=== PATIENT | female | born 1935 | race Caucasian/White ===

== ENCOUNTER → 2016-05-24 | Outpatient (CLI) | payer BC ==
[~2016-05-24] MED LIST: ACET-749 PO; ACET325T96 PO; ADVIN50050 INH; ALBINS NEB; ALBU0.5N2 NEB; ALUMSUS2 PO; ATOR-22 PO; BUTA1CAP17 PO; CALC500C3 PO; CARB-157 PO; CLR10 PO; CPR250 PO; CRG40 PO; CYNI1000 IM; FRCT/ PO; GABA-112 PO; GLYCDRO6 OPB; IMD/2 PO; LEVO175T3 PO; MGNO400 PO; MOME6000 NAE; MULT-845 PO; PANT40TA PO; PRT40 PO; SPRIN INH; SUMA100T16 PO; SUMA50TA15 PO; TIOTCAP INH; VITAMIN A OPL; VNTHFA/IN INH
[2016-05-24 14:17] LABS: URINE APPEARANCE CLEAR (CLEAR); URINE BILIRUBIN NEG (NEG); URINE COLOR DK YELLOW; URINE EPITHELIAL CELL AUTO 20-30 /lpf (0-5); URINE NITRITE POS (NEG); URINE PH 6.5 (4.5-7.5); URINE SPECIFIC GRAVITY 1.009 (1.000-1.030); UROBILINOGEN NEG (NEG)
[2016-05-24 14:29] LABS: MANUAL MICROSCOPIC REQUIRED? NO; REVIEW REQ? NO
== END | disposition home or self-care (01) ==
LOC: C.LABBC 10:24
PROVIDERS: ATTEND Internal Medicine Pulmonary Disease
DX: N39.0 Urinary tract infection, site not specified (principal)

== ENCOUNTER → 2016-07-04 | Outpatient (CLI) | payer BC ==
[2016-07-04 18:03] LABS: THYROID STIMULATING HORMONE 5.68 uIu/ml (0.300-4.500)
[2016-07-06 14:59] LABS: MICROSOMAL AB 1 IU/ML (<9)
== END | disposition home or self-care (01) ==
LOC: C.LABBC 12:16
PROVIDERS: ATTEND Internal Medicine Pulmonary Disease
DX: E05.00 Thyrotoxicosis with diffuse goiter without thyrotoxic crisis or storm (principal)

== ENCOUNTER 2016-07-11 11:12 | Emergency (ER) | payer BC ==
[~2016-07-11] VITALS: Ht 162.6 cm; Wt 45.0 kg
[~2016-07-11 11:12] MED LIST changes: -ACET-749 PO; -ALBINS NEB; -CPR250 PO; -GLYCDRO6 OPB; -MOME6000 NAE; -PANT40TA PO; -SPRIN INH; -SUMA50TA15 PO; -VNTHFA/IN INH
[2016-07-11 11:17] VITALS: TEMP 36.4; Ht 162.6 cm; Wt 45.0 kg
[2016-07-11 12:15] LABS: BASO % 0.1 %; BASO ABS # 0.02 K/uL (0-0.2); EOS % 0.7 %; HEMATOCRIT 33.7 % (37-47); IG% 0.2 %; LYMPH % 13.1 %; LYMPH ABS # 1.77 K/uL (1.2-3.4); MEAN CORPUSCULAR HEMOGLOBIN 32.2 pg (25-34); MEAN CORPUSCULAR HGB CONC 33.5 g/dl (32-36); MEAN PLATELET VOLUME 9.7 fL (7.4-10.4); MONO % 6.9 %; PLATELET COUNT 186 K/uL (130-400); RED BLOOD COUNT 3.51 M/uL (4.2-5.4); WHITE BLOOD COUNT 13.48 K/uL (4.8-10.8)
[2016-07-11] MEDS ORDERED: ALBINS NEB (12:15)
[2016-07-11] MEDS ORDERED: SPRIN INH (12:19)
[2016-07-11] MEDS ORDERED: VNTHFA/IN INH (12:24)
[2016-07-11] MEDS ORDERED: CPR250 PO (12:26)
[2016-07-11] MEDS ORDERED: MOME6000 NAE (12:28)
[2016-07-11] MEDS ORDERED: PANT40TA PO (12:30)
[2016-07-11] MEDS ORDERED: GLYCDRO6 OPB (12:34)
[2016-07-11 12:35] LABS: BUN/CREATININE RATIO 18.1 (10-20); CALCIUM 9.3 mg/dl (8.5-10.1); CREATININE 0.64 mg/dl (0.60-1.20)
[2016-07-11 12:39] LABS: ANISOCYTOSIS PRESENT; COMPLETE YES; HYPOCHROMIA PRESENT
[2016-07-11] MEDS ORDERED: ACET-749 PO (12:39)
--- NOTE | 2016-07-11 12:47 | DIAGNOSTIC IMAGING REPORT ---
CHEST ONE VIEW PORTABLE CLINICAL HISTORY: CHEST PAIN dyspnea COMPARISON STUDY: 11/25/2015 FINDINGS: Mild stable upper lobe fibrotic change. Mild emphysematous change. No acute process. Prior vertebroplasty of the low thoracic region. IMPRESSION: Chronic change. Emphysematous change. No acute infiltrate. Electronically signed by: Kai Lara M.D. 07/11/2016 12:45 PM Dictated Date/Time: 07/11/2016 12:40 PM
--- NOTE | 2016-07-11 12:48 | DIAGNOSTIC IMAGING REPORT ---
HEAD CT NONCONTRAST CT DOSE: 823.94 mGycm HISTORY: Mental status change right sided weakness TECHNIQUE: Multiaxial CT images of the head were performed without the use of intravenous contrast. Comparison: 11/23/2015 Findings: The paranasal sinuses and mastoid air cells are clear. Subtle heterogeneity of density characteristics of the periventricular regions. This is consistent with a component of chronic small vessel change of aging and is unaltered from the prior study. Ventricular system is midline. Basal cisterns are within normal limits. Impression: Age-related change. No acute process. Electronically signed by: Kai Lara M.D. 07/11/2016 12:47 PM Dictated Date/Time: 07/11/2016 12:45 PM
[2016-07-11 13:28] LABS: URINE APPEARANCE CLEAR (CLEAR); URINE BILIRUBIN NEG (NEG); URINE COLOR DK YELLOW; URINE NITRITE POS (NEG); URINE PH 6.5 (4.5-7.5); URINE SPECIFIC GRAVITY 1.009 (1.000-1.030); UROBILINOGEN NEG (NEG)
[2016-07-11 13:37] LABS: MANUAL MICROSCOPIC REQUIRED? NO; REVIEW REQ? NO
[2016-07-11] MEDS ORDERED: ASPIRIN 324 MG CHEW PO STA (15:29)
[2016-07-11] MEDS ORDERED: ACETAMINOPHEN/CODEINE 300/30MG TAB PO ONE (15:30)
[2016-07-11 15:50] VITALS: BP 143/73; PULSE 80; O2SAT 92
--- NOTE | 2016-07-12 23:27 | EMERGENCY ROOM VISIT NOTE ---
History Report prepared by Evan: Cynthia Trinidad Under the Supervision of: Dr. Rony Avila M.D. First contact with patient: 11:59 Chief Complaint: STROKE SYMPTOMS Stated Complaint: RIGHT SIDE WEAKNESS, DROPPED SHOULDER History of Present Illness The patient is a 80 year old female who presents to the Emergency Room with complaints of persistent right sided weakness starting yesterday. She has noticed a drop in her right shoulder. She also complains of urinary symptoms. She denies any fevers, chills, headache, trouble swallowing, or any other complaints. She normally uses a wheelchair and a walker to ambulate. As per , she has had frequent falls but did not have fall since November. She has numbness in bilateral feet which is chronic. The patient has a history of recurring UTI. She does feel weak at baseline but felt worse today. Denies headache. No acute urinary symptoms. No fever or chills. No cough or chest pain or shortness of breath. At baseline she is in a wheelchair and transfers with a walker so has limited mobility Source of History: patient, spouse/significant other, caregiver Onset: yesterday Position: other (right sided) Quality: other (weakness) Timing: other (persistent) Associated Symptoms: + urinary symptoms, No chills, No fevers, No headache Review of Systems See HPI for pertinent positives & negatives. A total of 10 systems reviewed and were otherwise negative. Past Medical & Surgical Medical Problems: (1) Arthritis (2) Asthma (3) Asthma with exacerbation (4) Asthma with exacerbation (5) Asthma with exacerbation (6) Asthma with exacerbation (7) Back pain (8) Borderline hypercholesterolemia (9) CAD (coronary artery disease) (10) Compression fracture of L1 lumbar vertebra (11) Delirium (12) Fall (13) GERD (gastroesophageal reflux disease) (14) Hypothyroid (15) Hypoxia (16) Hypoxia (17) Inferior pubic ramus fracture (18) Lumbar compression fracture (19) Osteopenia (20) Osteoporosis (21) Sacral fracture (22) Sacral fracture, closed (23) Shortness of breath (24) UTI (urinary tract infection) (25) Weakness Surgical Problems: (1) H/O thyroidectomy (2) History of appendectomy (3) History of bilateral knee replacement (4) History of tonsillectomy and adenoidectomy (5) Hx of bilateral cataract extraction Old medical records were reviewed. Nurse's notes were reviewed and I agree with. Family History Patient reports no known family medical history. Social History Smoking Status: Former Smoker Alcohol Use: occasionally Drug Use: none Marital Status: Housing Status: lives with significant other Occupation Status: retired Current/Historical Medications Scheduled Acetamin/Butalbital/Caffeine (Fioricet), 1 TAB PO UD Acetaminophen Tab (Tylenol), 650 MG PO BID Aluminum/Magnesium/Simeth (Maalox Max Susp), 20 ML PO PRN Atorvastatin (Lipitor), 20 MG PO HS Calcium Carbonate (Tums), 1,000 MG PO AMHS Ciprofloxacin (Ciprofloxacin HCl), 1 TAB PO UD Cyanocobalamin (Cyanocobalamin), 1,000 MCG IM WK Fluticasone Prop/Salmeterol (Advair Diskus 500-50 Mcg/Dose), 1 PUFF INH AMHS Aqaqfviw-Ziojxmgugift-Exvsunzp (Artificial Tears), 1 DROP OPB Q2H Levothyroxine Sodium (Levothyroxine Sodium), 175 MCG PO QAM Magnesium Oxide (Magnesium-Oxide), 400 MG PO BID Mometasone Furoate (Nasal) (Mometasone Furoate), 2 SPRAYS MIRTHA QAM Multiple Vitamins W/ Minerals (Centrum Silver Adult 50+), 1 TAB PO QAM Nadolol (Nadolol), 40 MG PO HS Pantoprazole (Protonix), 40 MG PO DAILY Tiotropium [place] (Spiriva Handihaler), 1 CAP INH QAM Scheduled PRN Acetaminophen Tab (Tylenol), 650 MG PO Q4H PRN for Pain or Fever Acetaminophen/Codeine (Tylenol W/Codeine #3), 1 TAB PO UD PRN for Pain Albuterol Hfa (Ventolin Hfa), 2 PUFFS INH Q6H PRN for Shortness of Breath Albuterol Sulf (Albuterol Sulfate), 1 VIAL NEB Q4 PRN for Shortness of Breath Xrrfouidoz-Gkqfsozrsyoqk-Kyjml (Fioricet), 1 TAB PO Q12H PRN for N Loperamide Hcl (Imodium), 2 MG PO UD PRN for RN Loratadine (Claritin), 10 MG PO Q24H PRN for ALLERGIC REACTION Sumatriptan Succinate (Imitrex), 50 MG PO DIRECTED PRN for Migraine Allergies Coded Allergies: Celecoxib (Verified Allergy, Intermediate, RASH, 07/11/16) Penicillins (Verified Allergy, Intermediate, MOUTH SWELLING/RASH, 07/11/16) Cephalosporins (Verified Allergy, Unknown, HIVES, 07/11/16) Sulfa Antibiotics (Verified Allergy, Unknown, DIFFICULTY AMBULATING, ) Lorazepam (Verified Adverse Reaction, Severe, hallucinations, 07/11/16) Oxycodone (Verified Adverse Reaction, Severe, hallucinations, 07/11/16) Arformoterol (Verified Adverse Reaction, Intermediate, GI SYMPTOMS, 07/11/16 ) 'SHAKINESS, HYPERNESS' Clarithromycin (Verified Adverse Reaction, Intermediate, GI SYMPTOMS, ) DIARRHEA Physical Exam Vital Signs Date Time Temp Pulse Resp B/P Pulse Ox O2 Delivery O2 Flow Rate FiO2 07/11/16 15:50 80 18 143/73 92 Room Air 07/11/16 13:21 79 07/11/16 13:18 79 16 135/76 91 Room Air 07/11/16 11:17 36.4 74 18 124/71 92 Room Air Physical Exam General: Non-ill appearing, older female, in no acute distress. Speaking and swallowing without difficulty. HEENT: Normal cephalic atraumatic. Pupils are equal round and reactive to light. Extraocular movements are intact. Colored contact in left eye for previous eye injury. Oropharynx is pink with moist mucous membranes. No swelling of the mouth lips or tongue. Neck: Supple with a midline trachea. No meningeal signs or stiffness, no JVD or bruits. No Stridor. Chest: Clear to auscultation bilaterally. No wheezes or rhonchi. No increased work of breathing. Heart: regular rate and rhythm. Abdomen: Soft nontender, nondistended without rebound guarding or rigidity. Extremities: No cyanosis clubbing or edema. No calf tenderness or assymetry Spine/Back. Non tender to palpation. No CVA tenderness Skin: Good turgor without rashes. Neurologic exam: Cranial nerves two through 12 are intact. Sensation is intact and symmetrical throughout. Questionable mild right sided weakness in the lower extremity. Medical Decision & Procedures ER Provider Diagnostic Interpretation: X-ray results as stated below per interpretation by me and the radiologist: CHEST ONE VIEW PORTABLE CLINICAL HISTORY: CHEST PAIN dyspnea COMPARISON STUDY: 11/25/2015 FINDINGS: Mild stable upper lobe fibrotic change. Mild emphysematous change. No acute process. Prior vertebroplasty of the low thoracic region. IMPRESSION: Chronic change. Emphysematous change. No acute infiltrate. Electronically signed by: Kai Lara M.D. 07/11/2016 12:45 PM Dictated Date/Time: 07/11/2016 12:[address] results as stated below per my review and radiologist interpretation: HEAD CT NONCONTRAST CT DOSE: 823.94 mGycm HISTORY: Mental status change right sided weakness TECHNIQUE: Multiaxial CT images of the head were performed without the use of intravenous contrast. Comparison: 11/23/2015 Findings: The paranasal sinuses and mastoid air cells are clear. Subtle heterogeneity of density characteristics of the periventricular regions. This is consistent with a component of chronic small vessel change of aging and is unaltered from the prior study. Ventricular system is midline. Basal cisterns are within normal limits. Impression: Age-related change. No acute process. Electronically signed by: Kai Lara M.D. 07/11/2016 12:47 PM Dictated Date/Time: 07/11/2016 12:45 PM Laboratory Results 07/11/16 11:45 Red Blood Count 3.51, Mean Corpuscular Volume 96.0, Mean Corpuscular Hemoglobin 32.2, Mean Corpuscular Hemoglobin Concent 33.5, Mean Platelet Volume 9.7, Neutrophils (%) (Auto) 79.0, Lymphocytes (%) (Auto) 13.1, Monocytes (%) (Auto) 6.9, Eosinophils (%) (Auto) 0.7, Basophils (%) (Auto) 0.1, Neutrophils # (Auto) 10.63, Lymphocytes # (Auto) 1.77, Monocytes # (Auto) 0.93, Eosinophils # (Auto) 0.10, Basophils # (Auto) 0.02 07/11/16 11:45 Test 07/11/16 11:41 07/11/16 11:45 07/11/16 12:25 07/11/16 13:05 Bedside Glucose 96 mg/dl (70-90) White Blood Count 13.48 K/uL (4.8-10.8) Red Blood Count 3.51 M/uL (4.2-5.4) Hemoglobin 11.3 g/dL (12.0-16.0) Hematocrit 33.7 % (37-47) Mean Corpuscular Volume 96.0 fL (80-100) Mean Corpuscular Hemoglobin 32.2 pg (25-34) Mean Corpuscular Hemoglobin Concent 33.5 g/dl (32-36) Platelet Count 186 K/uL (130-400) Mean Platelet Volume 9.7 fL (7.4-10.4) Neutrophils (%) (Auto) 79.0 % Lymphocytes (%) (Auto) 13.1 % Monocytes (%) (Auto) 6.9 % Eosinophils (%) (Auto) 0.7 % Basophils (%) (Auto) 0.1 % Neutrophils # (Auto) 10.63 K/uL (1.4-6.5) Lymphocytes # (Auto) 1.77 K/uL (1.2-3.4) Monocytes # (Auto) 0.93 K/uL (0.11-0.59) Eosinophils # (Auto) 0.10 K/uL (0-0.5) Basophils # (Auto) 0.02 K/uL (0-0.2) RDW Standard Deviation 48.2 fL (36.4-46.3) RDW Coefficient of Variation 13.7 % (11.5-14.5) Immature Granulocyte % (Auto) 0.2 % Immature Granulocyte # (Auto) 0.03 K/uL (0.00-0.02) Hypochromasia PRESENT Anisocytosis PRESENT Anion Gap 8.0 mmol/L (3-11) Est Creatinine Clear Calc Drug Dose 50.6 ml/min Estimated GFR () 98.4 Estimated GFR (Non- 84.9 BUN/Creatinine Ratio 18.1 (10-20) Calcium Level 9.3 mg/dl (8.5-10.1) Total Bilirubin 0.8 mg/dl (0.2-1) Direct Bilirubin 0.2 mg/dl (0-0.2) Aspartate Amino Transf (AST/SGOT) 17 U/L (15-37) Alanine Aminotransferase (ALT/SGPT) 23 U/L (12-78) Alkaline Phosphatase 71 U/L (45-117) Total Protein 6.8 gm/dl (6.4-8.2) Albumin 3.6 gm/dl (3.4-5.0) Lipase 85 U/L (73-393) Bedside Troponin I 0.000 ng/ml (0-0.045) Urine Color DK YELLOW Urine Appearance CLEAR (CLEAR) Urine pH 6.5 (4.5-7.5) Urine Specific [place] 1.009 (1.000-1.030) Urine Protein TRACE (NEG) Urine Glucose (UA) NEG (NEG) Urine Ketones TRACE (NEG) Urine Occult Blood TRACE (NEG) Urine Nitrite POS (NEG) Urine Bilirubin NEG (NEG) Urine Urobilinogen NEG (NEG) Urine Leukocyte Esterase TRACE (NEG) Urine WBC (Auto) 5-10 /hpf (0-5) Urine RBC (Auto) 5-10 /hpf (0-4) Urine Hyaline Casts (Auto) 1-5 /lpf (0-5) Urine Epithelial Cells (Auto) 10-20 /lpf (0-5) Urine Bacteria (Auto) NEG (NEG) Date/Time Source Procedure Growth Status 07/11/16 13:05 Urine , Clean Catch Urine Culture - Final MORE THAN THREE TYPES OF ORGANISMS MS... Complete Laboratory studies as stated above per my review. Medications Administered Medications (Trade) Dose Ordered Sig/Theo Route Start Time Stop Time Status Last Admin Dose Admin Acetaminophen/ Codeine Phosphate (Tylenol w/ Codeine #3 Tab) 1 tab NOW ONCE PO 07/11/16 15:30 07/11/16 15:31 DC 07/11/16 15:42 1 TAB Aspirin (Aspirin Chew) 324 mg NOW STAT PO 07/11/16 15:29 07/11/16 15:30 DC 07/11/16 15:42 324 MG ECG Indication: weakness (left sided) Rate (beats per minute): 75 Rhythm: normal sinus Findings: other (poor baseline; nonspecific T wave abnormality) Comparison ECG Date: November 23, 2015 Change: Anterior T wave abnormality has improved from November 23, 2015. ED Course 1159: Past medical records reviewed. The patient was evaluated in room A11B, and a complete history and physical examination were performed. 1529: Aspirin 324 mg PO 1530: Acetaminophen/Codeine Phosphate 1 tab PO Medical Decision Differential diagnosis includes but is not limited to CVA, TIA, musculoskeletal , electrolyte or metabolic abnormalities, arrhythmia, infection. This patient comes in as described above. She was complaining of a right shoulder feeling like it was down compared to the left. Clinically, it's nontender and has full range of motion. She complains of some weakness in her right leg along my exam. She does not appear to be significantly weak compared to the other side. Her symptoms have been going on since yesterday. She does a lot of medical problems and does have a lot of weakness to begin with apparently. She was worked up for the possibility of a stroke. IV access was established and multiple blood tests was obtained. CAT scan of her head shows no acute findings. Chest x-ray is unremarkable. EKG does not suggest acute coronary syndrome or arrhythmia. She has no significant anemia. She has no acute electrolyte or metabolic abnormalities. Upon reassessment, the patient is demanding that she goes home. She says she feels fine and he wants to follow -up with her neurologist on Saturday and hersymptoms seem resolved. I recommend she take an aspirin a day. I did talk to the patient and her at length and told him I did recommend admission for further evaluation but she adamantly declines. She seems to be back at her baseline and has close follow-up. She will return if worsening symptoms, numbness or weakness, fever or chills, any problems concerns. She was happy the plan and discharged to home. Impression Primary Impression: Weakness Scribe Attestation The scribe's documentation has been prepared under my direction and personally reviewed by me in its entirety. I confirm that the note above accurately reflects all work, treatment, procedures, and medical decision making performed by me. Departure Information Dispostion Home / Self-Care Referrals Jamison Camp PA-C (PCP) Forms HOME CARE DOCUMENTATION FORM, IMPORTANT VISIT INFORMATION Patient Instructions My [facility] Additional Instructions Rest Drink plenty of fluids Take an enteric coated baby aspirin 81 mg once a day REturn if: worsening of symptoms, numbness or weakness, any new problems or concerns
== END 2016-07-11 16:17 | disposition home or self-care (01) ==
LOC: C.EDB 11:16 → C.EDA 16:17
DX: R53.1 Weakness (principal); E78.00 Pure hypercholesterolemia, unspecified; I25.10 Atherosclerotic heart disease of native coronary artery without angina pectoris; E03.9 Hypothyroidism, unspecified; K21.9 Gastro-esophageal reflux disease without esophagitis; M81.0 Age-related osteoporosis without current pathological fracture; J45.909 Unspecified asthma, uncomplicated; M19.90 Unspecified osteoarthritis, unspecified site; Z87.440 Personal history of urinary (tract) infections; Z87.81 Personal history of (healed) traumatic fracture; Z91.81 History of falling; Z96.653 Presence of artificial knee joint, bilateral; Z98.49 Cataract extraction status, unspecified eye; Z98.890 Other specified postprocedural states; Z87.891 Personal history of nicotine dependence; Z79.899 Other long term (current) drug therapy; Z88.0 Allergy status to penicillin; Z88.2 Allergy status to sulfonamides; Z88.5 Allergy status to narcotic agent; Z88.8 Allergy status to other drugs, medicaments and biological substances

== ENCOUNTER → 2016-07-20 | Outpatient (CLI) | payer BC ==
[~2016-07-20] MED LIST changes: +ACET-749 PO; +ALBINS NEB; -ALBU0.5N2 NEB; -CARB-157 PO; +CPR250 PO; -GABA-112 PO; +GLYCDRO6 OPB; +MOME6000 NAE; +PANT40TA PO; -PRT40 PO; +SPRIN INH; +SUMA50TA15 PO; -TIOTCAP INH; -VITAMIN A OPL; +VNTHFA/IN INH
[2016-07-20 13:42] LABS: CHOLESTEROL/HDL RATIO 2.2
== END | disposition home or self-care (01) ==
LOC: C.LABBC 10:00
PROVIDERS: ATTEND Internal Medicine Cardiovascular Disease
DX: I10 Essential (primary) hypertension (principal); E78.5 Hyperlipidemia, unspecified

== ENCOUNTER → 2016-08-07 | Outpatient (CLI) | payer BC ==
--- NOTE | 2016-08-07 15:46 | DIAGNOSTIC IMAGING REPORT ---
EXAMINATION: RENAL ULTRASOUND CLINICAL HISTORY: Dysuria. Recurrent UTIs. COMPARISON STUDY: CT scan dated 11/23/2015 FINDINGS: The right kidney measures 9.5 cm. The left kidney measures 9.6 cm. There is no evidence of hydronephrosis. There are no renal masses. No bladder abnormalities are visualized. The left ureteral jet was not visualized. IMPRESSION : Nonvisualization of the left ureteral jet, but no evidence of hydronephrosis. Otherwise unremarkable renal ultrasound. Electronically signed by: Kp Rojas M.D. 08/07/2016 3:45 PM Dictated Date/Time: 08/07/2016 3:44 PM
== END | disposition home or self-care (01) ==
LOC: C.ULTR 14:32
PROVIDERS: ATTEND Nurse Practitioner Adult Health
DX: N39.0 Urinary tract infection, site not specified (principal); R30.0 Dysuria

== ENCOUNTER → 2016-08-17 | Outpatient (CLI) | payer BC ==
[~2016-08-17] MED LIST changes: +CIPR250T5 PO; -CPR250 PO
== END | disposition home or self-care (01) ==
LOC: C.LABSPEC 16:42
PROVIDERS: ATTEND Ophthalmology
DX: H10.32 Unspecified acute conjunctivitis, left eye (principal)

== ENCOUNTER → 2016-09-03 | Outpatient (CLI) | payer BC | END | disposition home or self-care (01) | LOC: C.LABSPEC 17:08 | PROVIDERS: ATTEND Nurse Practitioner Adult Health | DX: N39.0 Urinary tract infection, site not specified (principal); R35.0 Frequency of micturition ==

== ENCOUNTER → 2016-09-11 | Outpatient (CLI) | payer BC ==
[2016-09-11 17:45] LABS: BASO % 0.3 %; BASO ABS # 0.02 K/uL (0-0.2); COMPLETE YES; HEMATOCRIT 33.8 % (37-47); IG% 0.3 %; LYMPH % 25.1 %; LYMPH ABS # 1.96 K/uL (1.2-3.4); MEAN CORPUSCULAR HEMOGLOBIN 32.9 pg (25-34); MEAN CORPUSCULAR HGB CONC 31.7 g/dl (32-36); MEAN PLATELET VOLUME 10.3 fL (7.4-10.4); MONO % 7.9 %; NEUT % 64.4 %; PLATELET COUNT 144 K/uL (130-400); RED BLOOD COUNT 3.25 M/uL (4.2-5.4); WHITE BLOOD COUNT 7.82 K/uL (4.8-10.8)
[2016-09-11 18:25] LABS: IMMUNOGLOBULN M 56.5 mg/dL (40-230)
[2016-09-17 13:10] LABS: ALBUMIN 3.9 G/DL (3.8-4.8); ANTI-CENTROMERE AB <1.0 NEG AI (<1.0 NEG); ANTI-SS-A <1.0 NEG AI (<1.0 NEG); ANTI-SS-B <1.0 NEG AI (<1.0 NEG); DNA ds CRITHIDIA NEGATIVE (NEGATIVE); GAMMA GLOBULIN 0.7 G/DL (0.8-1.7); MICROSOMAL AB 2 IU/ML (<9); Sm Antibody <1.0 NEG AI (<1.0 NEG); TOTAL PROTEIN 6.3 G/DL (6.2-8.3)
== END | disposition home or self-care (01) ==
LOC: C.LAB1850 16:11
PROVIDERS: ATTEND Internal Medicine Infectious Disease
DX: D80.9 Immunodeficiency with predominantly antibody defects, unspecified (principal)

== ENCOUNTER → 2016-10-17 | Outpatient (CLI) | payer BC | END | disposition home or self-care (01) | LOC: C.PATHSPEC 17:58 | PROVIDERS: ATTEND Plastic Surgery | DX: C44.629 Squamous cell carcinoma of skin of left upper limb, including shoulder (principal) ==

== ENCOUNTER 2016-11-09 10:03 | Inpatient (IN) | payer BC, OTHER ==
[~2016-11-09] VITALS: Ht 162.6 cm; Wt 46.0 kg
[~2016-11-09 10:03] MED LIST changes: -CIPR250T5 PO; +CPR250 PO; -SUMA50TA15 PO
[2016-11-09 10:55] LABS: BASO % 0.2 %; BASO ABS # 0.02 K/uL (0-0.2); COMPLETE YES; HEMATOCRIT 34.1 % (37-47); IG% 0.1 %; LYMPH % 12.6 %; LYMPH ABS # 1.16 K/uL (1.2-3.4); MEAN CELL VOLUME 100.6 fL (80-100); MEAN CORPUSCULAR HEMOGLOBIN 33.3 pg (25-34); MEAN CORPUSCULAR HGB CONC 33.1 g/dl (32-36); MEAN PLATELET VOLUME 9.7 fL (7.4-10.4); MONO % 8.5 %; NEUT % 78.6 %; PLATELET COUNT 164 K/uL (130-400); RED BLOOD COUNT 3.39 M/uL (4.2-5.4); WHITE BLOOD COUNT 9.23 K/uL (4.8-10.8)
--- NOTE | 2016-11-09 10:56 | EMERGENCY ROOM VISIT NOTE ---
History Report prepared by Evan: Whitney Thornton Under the Supervision of: Dr. Colten Lagunas M.D. First contact with patient: 10:36 Chief Complaint: RESPIRATORY DISTRESS Stated Complaint: SHORTNESS OF BREATH Nursing Triage Summary: pt here with increased resp distress, recently dx with bronchitis. pt has significant bilateral edema. audible rhochi and wheezes. given duoneb in route History of Present Illness The patient is a 81 year old female who presents to the Emergency Room with complaints of worsening respiratory symptoms for the past 4 days. She saw her doctor three days ago and was diagnosed with bronchitis. She was started on azithromycin and a prednisone taper. She states that these medications are not helping, and her symptoms worsened yesterday and throughout the night. The patient had a duoneb last night and this morning. She was brought to the ED by ambulance and received another duoneb. She states that these treatments give her some relief for a short period of time. The patient is typically on 2L of O2 PRN at home. Per , that has been increased to 3L over the past 4 days due to her symptoms. Her symptoms are worsened with exertion. She denies any history of COPD, but she does have a history of chronic bronchitis and asthma. The patient notes some abdominal distention. She has not had a bowel movement today. She has been experiencing chills and has been feeling clammy. She denies fevers. She has bilateral lower extremity edema that she states is chronic. The patient finished a 10-day course of Cipro today that she was taking for a UTI. Source of History: patient, spouse/significant other Onset: 4 days ago Position: chest (respiratory) Timing: worsening Modifying Factors (Worsening): exertion Modifying Factors (Relieving): oxygen, other (Duoneb) Associated Symptoms: + chills, No fevers Note: Pt notes abdominal distention. Review of Systems All systems have been listed, reviewed, and are negative other than those previously mentioned. Please see Additional Medical History Sheet. Past Medical & Surgical Medical Problems: (1) Acute respiratory failure (2) Arthritis (3) Asthma (4) Back pain (5) CAD (coronary artery disease) (6) Fall (7) GERD (gastroesophageal reflux disease) (8) Hypothyroid (9) Hypoxia (10) Inferior pubic ramus fracture (11) Lumbar compression fracture (12) Sacral fracture (13) Sacral fracture, closed Surgical Problems: (1) H/O thyroidectomy (2) History of appendectomy (3) History of bilateral knee replacement (4) History of tonsillectomy and adenoidectomy (5) Hx of bilateral cataract extraction Family History Patient reports no known family medical history. Social History Smoking Status: Never Smoker Alcohol Use: occasionally Drug Use: none Marital Status: Housing Status: lives with significant other Occupation Status: retired Current/Historical Medications Scheduled Acetaminophen Tab (Tylenol), 650 MG PO BID Atorvastatin (Lipitor), 20 MG PO HS Calcium Carbonate (Tums), 1,000 MG PO AMHS Cyanocobalamin (Cyanocobalamin), 1,000 MCG IM WK Fluticasone Prop/Salmeterol (Advair Diskus 500-50 Mcg/Dose), 1 PUFF INH AMHS Ofmjiobb-Obkszooxmzjx-Crhjggpu (Artificial Tears), 1 DROP OPB Q2H Levothyroxine Sodium (Levothyroxine Sodium), 175 MCG PO QAM Magnesium Oxide (Magnesium-Oxide), 400 MG PO BID Mometasone Furoate (Nasal) (Mometasone Furoate), 2 SPRAYS MIRTHA QAM Multiple Vitamins W/ Minerals (Centrum Silver Adult 50+), 1 TAB PO QAM Nadolol (Nadolol), 40 MG PO HS Pantoprazole (Protonix), 40 MG PO DAILY Sumatriptan Succinate (Imitrex), 50 MG PO PRN Tiotropium [place] (Spiriva Handihaler), 1 CAP INH QAM Scheduled PRN Albuterol Hfa (Ventolin Hfa), 2 PUFFS INH Q6H PRN for Shortness of Breath Albuterol Sulf (Albuterol Sulfate), 1 VIAL NEB Q4 PRN for Shortness of Breath Dkajxrkmgr-Ddjkvqphyatxs-Glspy (Fioricet), 1 TAB PO Q12H PRN for N Loperamide Hcl (Imodium), 2 MG PO UD PRN for RN Loratadine (Claritin), 10 MG PO Q24H PRN for ALLERGIC REACTION Allergies Coded Allergies: Celecoxib (Verified Allergy, Intermediate, RASH, 11/09/16) Penicillins (Verified Allergy, Intermediate, MOUTH SWELLING/RASH, 11/09/16) Cephalosporins (Verified Allergy, Unknown, HIVES, 11/09/16) Sulfa Antibiotics (Verified Allergy, Unknown, DIFFICULTY AMBULATING, ) Lorazepam (Verified Adverse Reaction, Severe, hallucinations, 11/09/16) Oxycodone (Verified Adverse Reaction, Severe, hallucinations, 11/09/16) Arformoterol (Verified Adverse Reaction, Intermediate, GI SYMPTOMS, ) 'SHAKINESS, HYPERNESS' Clarithromycin (Verified Adverse Reaction, Intermediate, GI SYMPTOMS, 11/09) DIARRHEA Physical Exam Vital Signs Date Time Temp Pulse Resp B/P (MAP) Pulse Ox O2 Delivery O2 Flow Rate FiO2 11/09/16 14:50 82 20 129/106 98 Nasal Cannula 3.0 11/09/16 14:29 98 Nasal Cannula 3.0 11/09/16 13:07 79 11/09/16 12:27 75 18 120/70 98 Nasal Cannula 3.0 11/09/16 11:14 72 18 143/75 99 Nasal Cannula 3.0 11/09/16 11:00 73 18 99 Nasal Cannula 2.0 11/09/16 10:33 98 Nasal Cannula 3.0 11/09/16 10:18 36.5 88 26 136/81 91 Room Air 11/09/16 10:18 98 Nasal Cannula 3.0 11/09/16 10:14 75 Physical Exam GENERAL: Patient awake, alert, oriented x 3. Patient appears cachetic. Patient appears tachypneic, gurgling from her lungs is audible without a stethoscope. Patient follows commands. Patient is adequately hydrated and well-nourished. SKIN: No erythema, pallor, cyanosis or rash HEENT: Normal head, pupils equal, reactive to light and accommodation. Horizontal nystagmus. Neck: Without adenopathy, no neck vein distention. LUNGS: Wheezing and rhonchi in all panda. No rales. HEART: No murmurs. No gallops. No rubs ABDOMEN: Distended but soft and nontender. No masses, no rebound, no hepatomegaly or splenomegaly. EXTREMITIES: No signs of trauma. 2+ pitting edema in the right leg and 1+ non- pitting edema in the left leg. No calf or thigh tenderness. NEUROLOGIC: Cranial nerves II-XII within normal limits. No gross motor sensory function deficits. Medical Decision & Procedures ER Provider Diagnostic Interpretation: Radiology results as stated below per my review and radiologist interpretation: CHEST ONE VIEW PORTABLE HISTORY: Short of breath. COMPARISON: Chest 07/11/2016. FINDINGS: The heart remains mildly enlarged. Mild emphysema. No pleural effusions. No pneumothorax. There is a vertebroplasty at L1. No focal lung consolidations to suggest pneumonia. No evidence for pulmonary edema. IMPRESSION: No significant change compared to the prior study. No acute process. Electronically signed by: Jose R Soto M.D. 11/09/2016 11:18 AM Dictated Date/Time: 11/09/2016 11:16 AM Laboratory Results 11/09/16 10:10 Red Blood Count 3.39, Mean Corpuscular Volume 100.6, Mean Corpuscular Hemoglobin 33.3, Mean Corpuscular Hemoglobin Concent 33.1, Mean Platelet Volume 9.7, Neutrophils (%) (Auto) 78.6, Lymphocytes (%) (Auto) 12.6, Monocytes (%) ( Auto) 8.5, Eosinophils (%) (Auto) 0.0, Basophils (%) (Auto) 0.2, Neutrophils # ( Auto) 7.26, Lymphocytes # (Auto) 1.16, Monocytes # (Auto) 0.78, Eosinophils # ( Auto) 0.00, Basophils # (Auto) 0.02 11/09/16 10:10 Test 11/09/16 10:10 11/09/16 10:24 11/09/16 14:35 White Blood Count 9.23 K/uL (4.8-10.8) Red Blood Count 3.39 M/uL (4.2-5.4) Hemoglobin 11.3 g/dL (12.0-16.0) Hematocrit 34.1 % (37-47) Mean Corpuscular Volume 100.6 fL (80-100) Mean Corpuscular Hemoglobin 33.3 pg (25-34) Mean Corpuscular Hemoglobin Concent 33.1 g/dl (32-36) Platelet Count 164 K/uL (130-400) Mean Platelet Volume 9.7 fL (7.4-10.4) Neutrophils (%) (Auto) 78.6 % Lymphocytes (%) (Auto) 12.6 % Monocytes (%) (Auto) 8.5 % Eosinophils (%) (Auto) 0.0 % Basophils (%) (Auto) 0.2 % Neutrophils # (Auto) 7.26 K/uL (1.4-6.5) Lymphocytes # (Auto) 1.16 K/uL (1.2-3.4) Monocytes # (Auto) 0.78 K/uL (0.11-0.59) Eosinophils # (Auto) 0.00 K/uL (0-0.5) Basophils # (Auto) 0.02 K/uL (0-0.2) RDW Standard Deviation 45.8 fL (36.4-46.3) RDW Coefficient of Variation 12.4 % (11.5-14.5) Immature Granulocyte % (Auto) 0.1 % Immature Granulocyte # (Auto) 0.01 K/uL (0.00-0.02) Anion Gap 4.0 mmol/L (3-11) Est Creatinine Clear Calc Drug Dose 47.2 ml/min Estimated GFR () 95.3 Estimated GFR (Non- 82.2 BUN/Creatinine Ratio 24.2 (10-20) Calcium Level 9.0 mg/dl (8.5-10.1) Total Bilirubin 0.4 mg/dl (0.2-1) Aspartate Amino Transf (AST/SGOT) 20 U/L (15-37) Alanine Aminotransferase (ALT/SGPT) 34 U/L (12-78) Alkaline Phosphatase 68 U/L (45-117) Troponin I < 0.015 ng/ml (0-0.045) Total Protein 6.5 gm/dl (6.4-8.2) Albumin 3.5 gm/dl (3.4-5.0) Globulin 3.0 gm/dl (2.5-4.0) Albumin/Globulin Ratio 1.2 (0.9-2) Bedside Lactic Acid Venous 0.92 mmol/L (0.90-1.70) Laboratory results as stated above per my review. Medications Administered Medications (Trade) Dose Ordered Sig/Theo Route Start Time Stop Time Status Last Admin Dose Admin Albuterol/ Ipratropium (Duoneb) 12 ml ONE ONCE INH 11/09/16 11:00 11/09/16 11:01 DC 11/09/16 11:00 12 ML ECG Indication: SOB/dyspnea Rate (beats per minute): 73 Rhythm: normal sinus Findings: no acute ischemic change, no ectopy, other (baseline artifact) ED Course 1036: Past medical records reviewed. The patient was evaluated in room A9B. A complete history and physical examination was performed. 1100: Duoneb 12 ml INH 1244: I reassessed the patient at this time. She still has loud wheezes and rhonchi. I discussed the results and treatment plan with the patient and her . I answered all pertaining questions that they had. They expressed understanding and verbalized agreement. 1305: I spoke with Dr. Mosquera. We discussed the patient's results and treatment plan. The patient will be evaluated by the [facility] for further management. Medical Decision Differential diagnoses includes bronchitis, pneumonia, CHF, emphysema. Patient is here with significant rhonchi and wheezes despite breathing treatments at home and in the ambulance. The patient has been on a tapered steroid dose at home but took additional 30 mg of prednisone over the past 12 hours. She received another breathing treatment while here in the ED without resolution of the wheezes or rhonchi. The patient remains tachypneic. Multiple labs and imaging were obtained. Please see above. I also discussed care with the patient, her and the hospitalist. Medication Reconciliation: I attest that I have personally reviewed the patient' s current medication list. Blood pressure Screening: Patient was found to have normal blood pressure on screening and does not require follow up. Consults Time Called: 1301 Consulting Physician: Dr. Mosquera Returned Call: [address] Mosquera. We discussed the patient's results and treatment plan. The patient will be evaluated by the [facility] for further management. Impression Primary Impression: Asthmatic bronchitis Scribe Attestation The scribe's documentation has been prepared under my direction and personally reviewed by me in its entirety. I confirm that the note above accurately reflects all work, treatment, procedures, and medical decision making performed by me. Departure Information Dispostion Being Evaluated By Hospitalist Referrals No Doctor, Assigned (PCP) Patient Instructions Asthma - [facility], COPD - [facility], Croup - [facility], My [facility] Health Problem Qualifiers Primary Impression: Asthmatic bronchitis Asthma severity: moderate persistent Asthma complication type: uncomplicated Qualified Codes: J45.40 - Moderate persistent asthma, uncomplicated
[2016-11-09 11:00] VITALS: PULSE 73; O2SAT 99
[2016-11-09] MEDS ORDERED: ALBUT/IPRATROP 3MG/0.5MG NEB 3 ML VIAL INH ONE (11:00)
[2016-11-09 11:02] LABS: ALT/SGPT 34 U/L (12-78); AST/SGOT 20 U/L (15-37); BLOOD UREA NITROGEN 17 mg/dl (7-18); BUN/CREATININE RATIO 24.2 (10-20); CARBON DIOXIDE 29 mmol/L (21-32); CHLORIDE 102 mmol/L (98-107); CREATININE 0.69 mg/dl (0.60-1.20); GLUCOSE 105 mg/dl (70-99); SODIUM 135 mmol/L (136-145)
[2016-11-09 11:07] LABS: ALB/GLOB RATIO 1.2 (0.9-2); ALKALINE PHOSPHATASE 68 U/L (45-117)
--- NOTE | 2016-11-09 11:20 | DIAGNOSTIC IMAGING REPORT ---
CHEST ONE VIEW PORTABLE HISTORY: Short of breath. COMPARISON: Chest 07/11/2016. FINDINGS: The heart remains mildly enlarged. Mild emphysema. No pleural effusions. No pneumothorax. There is a vertebroplasty at L1. No focal lung consolidations to suggest pneumonia. No evidence for pulmonary edema. IMPRESSION: No significant change compared to the prior study. No acute process. Electronically signed by: Jose R Soto M.D. 11/09/2016 11:18 AM Dictated Date/Time: 11/09/2016 11:16 AM
[2016-11-09] MEDS ORDERED: SUMA50TA15 PO (12:48)
[2016-11-09] MEDS ORDERED: LORATADINE 10 MG TAB PO PRN (13:45)
[2016-11-09] MEDS ORDERED: LOPERAMIDE HCL 2 MG CAP PO PRN (13:45)
[2016-11-09] MEDS ORDERED: ALBUT/IPRATROP 3MG/0.5MG NEB 3 ML VIAL INH PRN (13:45)
[2016-11-09] MEDS ORDERED: SODIUM CHLORIDE 0.9% 1000ML 1,000 ML IV SCH (14:02)
[2016-11-09] MEDS ORDERED: POLYETHYLENE (MIRALAX) 17 GM PACK PO PRN (14:15)
[2016-11-09] MEDS ORDERED: ACETAMINOPHEN 325 MG TAB PO PRN (14:15)
[2016-11-09] MEDS ORDERED: MAGNESIUM HYDROXIDE SUSP 30 ML UDC PO PRN (14:15)
[2016-11-09] MEDS ORDERED: ALUMINUM/MAGNESIUM/SIMETH (MAALOX MAX) 30 ML UDC PO PRN (14:15)
--- NOTE | 2016-11-09 14:23 | History and Physical ---
History & Physical Date & Time of Service: Nov 09, 2016 at 14:09 Chief Complaint: Shortness Of Breath Primary Care Physician: Sb Patricio M.D. History of Present Illness Source: patient, family 81-year-old female with history of chronic persistent asthma, previous history of immunoglobulin deficiency, presents after a 4 day history of worsening shortness of breath. The patient saw Jamison Camp was diagnosed with a viral bronchitis given azithromycin and prednisone but has not improved. I saw the patient after an hour-long nebulizer in the ER upon my initial evaluation she was having rhonchi most consistent with possible aspiration. She states jamison did discuss this with her also. It sounds like she needs to clinically clear her throat and there is liquid near the larynx while she breathes in and out. Her sats are low normal she otherwise is comfortable with the exception of feeling short of breath. This patient states that since her fall approximately one year ago with a fractured pelvis she has had a decline in her health with weight loss or appetite and despite working with physical therapy . She is currently accompanied by her . Past Medical/Surgical History Medical Problems: (1) Arthritis Status: Chronic (2) Asthma Status: Chronic (3) CAD (coronary artery disease) Status: Chronic (4) GERD (gastroesophageal reflux disease) Status: Chronic (5) Hypothyroid Status: Chronic (6) Hypoxia Status: Resolved (7) Inferior pubic ramus fracture Status: Resolved (8) Lumbar compression fracture Permanent Comment: L1 and L4 Status: Chronic (9) Sacral fracture Status: Resolved (10) Sacral fracture, closed Status: Resolved Surgical Problems: (1) H/O thyroidectomy Status: Resolved (2) History of appendectomy Status: Resolved (3) History of bilateral knee replacement Status: Resolved (4) History of tonsillectomy and adenoidectomy Status: Resolved (5) Hx of bilateral cataract extraction Status: Resolved Family History Patient reports no known family medical history. Social History Smoking Status: Never Smoker Drug Use: none Marital Status: Housing status: lives with family Occupational Status: retired Immunizations History of Influenza Vaccine: No History of Tetanus Vaccine?: Yes Tetanus Immunization Date: Feb 26, 2000 History of Pneumococcal: Yes History of Hepatitis B Vaccine: No Multi-Drug Resistant Organisms History of MDRO: Yes Type of MDRO: VRE, MRSA Allergies Coded Allergies: Celecoxib (Verified Allergy, Intermediate, RASH, 11/09/16) Penicillins (Verified Allergy, Intermediate, MOUTH SWELLING/RASH, 11/09/16) Cephalosporins (Verified Allergy, Unknown, HIVES, 11/09/16) Sulfa Antibiotics (Verified Allergy, Unknown, DIFFICULTY AMBULATING, ) Arformoterol (Verified Adverse Reaction, Intermediate, SHAKINESS, FEELS HYPER, 11/09/16) 'SHAKINESS, HYPERNESS' Clarithromycin (Verified Adverse Reaction, Intermediate, DIARRHEA, 11/09/16 ) DIARRHEA Lorazepam (Verified Adverse Reaction, Intermediate, hallucinations, ) Oxycodone (Verified Adverse Reaction, Intermediate, hallucinations, ) Home Medications Scheduled Acetaminophen Tab (Tylenol), 650 MG PO BID Atorvastatin (Lipitor), 20 MG PO HS Calcium Carbonate (Tums), 1,000 MG PO AMHS Cyanocobalamin (Cyanocobalamin), 1,000 MCG IM WK Fluticasone Prop/Salmeterol (Advair Diskus 500-50 Mcg/Dose), 1 PUFF INH AMHS Qumlvtyc-Fbthqnvtbpcj-Uzjufewm (Artificial Tears), 1 DROP OPB Q2H Levothyroxine Sodium (Levothyroxine Sodium), 175 MCG PO QAM Magnesium Oxide (Magnesium-Oxide), 400 MG PO BID Mometasone Furoate (Nasal) (Mometasone Furoate), 2 SPRAYS MIRTHA QAM Multiple Vitamins W/ Minerals (Centrum Silver Adult 50+), 1 TAB PO QAM Nadolol (Nadolol), 40 MG PO HS Pantoprazole (Protonix), 40 MG PO DAILY Sumatriptan Succinate (Imitrex), 50 MG PO PRN Tiotropium [place] (Spiriva Handihaler), 1 CAP INH QAM Scheduled PRN Albuterol Hfa (Ventolin Hfa), 2 PUFFS INH Q6H PRN for Shortness of Breath Albuterol Sulf (Albuterol Sulfate), 1 VIAL NEB Q4 PRN for Shortness of Breath Xmoskjxpgo-Kizftountpmix-Equdf (Fioricet), 1 TAB PO Q12H PRN for N Loperamide Hcl (Imodium), 2 MG PO UD PRN for RN Loratadine (Claritin), 10 MG PO Q24H PRN for ALLERGIC REACTION Review of Systems ROS: well nourished well developed No new double vision blurry vision, visual loss of her right eye No palpitations, chest pain or pressure Wheezing and rhonchi, coughing, difficulty with swallowing solids No abdominal pain nausea vomiting diarrhea but some recent weight loss weight No burning urine urine frequency or changes in color No focal joint pain or muscle pain, virtually swelling No skin rashes gross oral lesions No unusual bruising or bleeding No focused back pain or numbness or loss of strength No changes in memory or confusion Physical Exam Vital Signs Date Time Temp Pulse Resp B/P (MAP) Pulse Ox O2 Delivery O2 Flow Rate FiO2 11/09/16 13:07 79 11/09/16 12:27 75 18 120/70 98 Nasal Cannula 3.0 11/09/16 11:14 72 18 143/75 99 Nasal Cannula 3.0 11/09/16 11:00 73 18 99 Nasal Cannula 2.0 11/09/16 10:33 98 Nasal Cannula 3.0 11/09/16 10:18 36.5 88 26 136/81 91 Room Air 11/09/16 10:18 98 Nasal Cannula 3.0 11/09/16 10:14 75 General Appearance: + moderate distress, + cachetic Head: normocephalic, atraumatic Eyes: + pertinent finding (left eye has a contact lens) Neck: supple, no JVD Respiratory/Chest: + respiratory distress, + accessory muscle use, + rhonchi Cardiovascular: regular rate, rhythm, no murmur Abdomen/GI: normal bowel sounds, non tender, soft Back: no CVA tenderness, normal range of motion Extremities/Musculoskelatal: no calf tenderness, normal range of motion, + pedal edema (right) Neurologic/Psych: alert, oriented x 3 Skin: normal color, warm/dry, no rash Diagnostics Laboratory Results Results Past 24 Hours Test 11/09/16 10:10 11/09/16 10:24 Range/Units White Blood Count 9.23 4.8-10.8 K/uL Red Blood Count 3.39 4.2-5.4 M/uL Hemoglobin 11.3 12.0-16.0 g/dL Hematocrit 34.1 37-47 % Mean Corpuscular Volume 100.6 80-100 fL Mean Corpuscular Hemoglobin 33.3 25-34 pg Mean Corpuscular Hemoglobin Concent 33.1 32-36 g/dl Platelet Count 164 130-400 K/uL Mean Platelet Volume 9.7 7.4-10.4 fL Neutrophils (%) (Auto) 78.6 % Lymphocytes (%) (Auto) 12.6 % Monocytes (%) (Auto) 8.5 % Eosinophils (%) (Auto) 0.0 % Basophils (%) (Auto) 0.2 % Neutrophils # (Auto) 7.26 1.4-6.5 K/uL Lymphocytes # (Auto) 1.16 1.2-3.4 K/uL Monocytes # (Auto) 0.78 0.11-0.59 K/uL Eosinophils # (Auto) 0.00 0-0.5 K/uL Basophils # (Auto) 0.02 0-0.2 K/uL RDW Standard Deviation 45.8 36.4-46.3 fL RDW Coefficient of Variation 12.4 11.5-14.5 % Immature Granulocyte % (Auto) 0.1 % Immature Granulocyte # (Auto) 0.01 0.00-0.02 K/uL Sodium Level 135 136-145 mmol/L Potassium Level 4.0 3.5-5.1 mmol/L Chloride Level 102 98-107 mmol/L Carbon Dioxide Level 29 21-32 mmol/L Anion Gap 4.0 3-11 mmol/L Blood Urea Nitrogen 17 7-18 mg/dl Creatinine 0.69 0.60-1.20 mg/dl Est Creatinine Clear Calc Drug Dose 47.2 ml/min Estimated GFR () 95.3 Estimated GFR (Non- 82.2 BUN/Creatinine Ratio 24.2 10-20 Random Glucose 105 70-99 mg/dl Calcium Level 9.0 8.5-10.1 mg/dl Total Bilirubin 0.4 0.2-1 mg/dl Aspartate Amino Transf (AST/SGOT) 20 15-37 U/L Alanine Aminotransferase (ALT/SGPT) 34 12-78 U/L Alkaline Phosphatase 68 45-117 U/L Troponin I < 0.015 0-0.045 ng/ml Total Protein 6.5 6.4-8.2 gm/dl Albumin 3.5 3.4-5.0 gm/dl Globulin 3.0 2.5-4.0 gm/dl Albumin/Globulin Ratio 1.2 0.9-2 Bedside Lactic Acid Venous 0.92 0.90-1.70 mmol/L Microbiology Results 11/09/16 Blood Culture, Received Pending 11/09/16 Blood Culture, Received Pending CXR normal Normal EKG Impression Assessment and Plan 81-year-old female with acute respiratory distress likely a combination of asthma exacerbation and aspiration pneumonitis. 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 We will not institute antibiotics this time, there are no focal chest x-ray changes Aspiration pneumonitis we'll schedule the patient for a video swallow have on aspiration precautions and a dental soft diet Unilateral leg swelling and Doppler was performed, acute DVT was seen, pulmonary med started on xarelto and CT for PE is pending She is clinically euthyroid and continue her Synthroid Name including GERD treatment of a PPI She is a full code Level of Care Telemetry Resuscitation Status FULL RESUSCITATION VTE Prophylaxis VTE Risk Assessment Done? Y/N: Yes Risk Level: Moderate Given or contraindicated: Unfractionated heparin SQ
[2016-11-09 14:29] VITALS: O2SAT 98; Ht 162.6 cm; Wt 46.0 kg
--- NOTE | 2016-11-09 15:31 | DIAGNOSTIC IMAGING REPORT ---
MODIFIED BARIUM SWALLOW CLINICAL HISTORY: Likely aspiration. Shortness of breath. COMPARISON STUDY: Barium swallow December 13, 2015. Fluoroscopy time: 1.4 minutes. FINDINGS: No aspiration was identified with thin liquids, nectar thick liquids, pudding or crackers with paste. Minimal residuals were noted within the vallecula. Epiglottic inversion was normal. IMPRESSION: 1. No tracheal aspiration identified. 2. Full recommendations by speech pathology to follow. Electronically signed by: Nima Moeller M.D. 11/09/2016 3:29 PM Dictated Date/Time: 11/09/2016 3:27 PM
[2016-11-09 16:00] VITALS: BP 137/82; PULSE 77; TEMP 36.4; O2SAT 100
[2016-11-09] MEDS: ALBUT/IPRATROP 3MG/0.5MG NEB 3 ML VIAL INH SCH ×2 (16:00→19:09)
[2016-11-09 17:48] LABS: PROTHROMBIN TIME (PATIENT) 10.6 SECONDS (9.0-12.0)
[2016-11-09] MEDS: METHYLPREDNISOLONE IV 40 MG in SYRINGE 0 ML IV SCH (17:54)
--- NOTE | 2016-11-09 17:54 | DIAGNOSTIC IMAGING REPORT ---
ULTRASOUND RIGHT LOWER EXTREMITY VENOUS CLINICAL HISTORY: Right leg swelling. COMPARISON STUDY: Bilateral lower extremity venous ultrasound dated 02/03/2016. TECHNIQUE: Real-time, grayscale, and color Doppler sonography of the deep veins of the right lower extremity was performed from the inguinal crease to the calf. Compression and augmentation were utilized. FINDINGS: There is nearly occlusive deep venous thrombosis identified within the distal superficial femoral vein and the popliteal vein. The common femoral, as well as the proximal and mid portions of the superficial femoral vein are patent and normally compressible. The greater saphenous vein and the profunda femoris vein at the junction with the common femoral vein are clear. The visualized calf veins are patent. Survey images of the left common femoral vein show no evidence of thrombus. IMPRESSION: There is nearly occlusive and acute appearing deep venous thrombosis identified within the distal right superficial femoral and popliteal veins. Electronically signed by: Tristian Galvez M.D. 11/09/2016 5:52 PM Dictated Date/Time: 11/09/2016 5:51 PM
--- NOTE | 2016-11-09 18:11 | Pulmonary Consultation ---
History General Date of Service: Nov 09, 2016. Stated Complaint: Progressive shortness of breath HPI The patient is a 81 year old female who presents to [facility] with complaints of Acute Respiratory Failure. The patient's primary care provider is Sb Patricio M.D.. 81y/o female recently seen by provider Darryl Camp on 11/06/16 for acute onset of dyspnea with associated green sputum. She was started on a steroid caden increasing from her baseline dose of 10mg to 40mg QD, continued nebulizers ( notable helped) and a Z-pac. She has a history of chronic persistent asthma ( chronic steroid use). The patient had progressive shortness of breath was admitted to the hospital. At this time she's been worked up with chest x-ray showing no acute changes, barium swallow which is within normal limits and right lower extremity DVT evaluation suggesting possible proximal DVT, final radiological is pending. At this time the patient continues to note increased dyspnea from her baseline and a dry cough. She currently denies: Fever, chills, pleurisy or classic cardiac chest pain. Current Work-Up: EKG: NSR with rate of 73 WBC: 9K (Neutro#: 7.26) PLT: 164K H/H: Troponin I: <0.015 CXR compared to 07/11/16 No acute changes, hyperinflation with bronchiectasis especially in the RLL Previous Work-Up: Microbiology URINE (03/01/06) Enterococcus Faecalis (02/09/11) Alpha Strep (11/06/11) Gamma Strep (05/13/14) Corynbacterium (07/14/14) Corynbacterium (11/15/15) Corynbacterium (11/15/15) Coag Staph (02/02/16) VRE & Corynbacterium (04/17/16) Gram + Bacilli BAL (03/25/13) Christina Albicans Eye (08/17/16) Left eye MRSA CT Thorax (05/12/13) Bronchiectasis changes with minimal atelectasis in the Lingula and RML Barium Swallow No tracheal aspiration noted RUE venous Doppler results pending Medications: 1) Protonix 2) Spiriva 3) Perforomist BID 4) Solu-Medrol 40mg Q8 5) DuoNebs QID Historian: patient, EMS Review of Systems Constitutional: reports: weakness Eyes: reports: other (chronically poor vision left eye greater than right) ENT: reports: other (dry throat) Cardiovascular: reports: no symptoms Respiratory: reports: as stated in HPI Gastrointestinal: reports: no symptoms Genitourinary - Female: reports: no symptoms Musculoskeletal: reports: myalgias Integumentary: reports: no symptoms Neurologic: reports: no symptoms Psychiatric: reports: no symptoms Endocrine: no symptoms Hematologic / Lymphatic: no symptoms Allergic / Immunologic: no symptoms Past Medical History Past Medical History: 1. Abdominal pain 2. Acquired immunoglobulin deficiency 3. Actinic keratosis 4. Acute sinusitis 5. Anxiety disorder 6. Aortic insufficiency 7. Arthritis 8. Atherosclerosis 9. Back pain 10. Benign colonic polyp 11. Candidiasis 12. Carotid artery plaque 13. Chronic asthmatic bronchitis 14. Chronic conjunctivitis 15. Colon polyps 16. Compression fracture of lumbar vertebra 17. Constipation 18. COPD with exacerbation 19. Cystitis 20. Dysuria 21. Ear pain 22. Edema 23. Enterococcus, vancomycin-resistant 24. Gait disturbance 25. GERD (gastroesophageal reflux disease) 26. Graves disease 27. Hearing loss 28. Hyperlipidemia 29. Hypertension 30. Hypomagnesemia 31. Hypothyroidism 32. Iliac bone pain 33. Lymphedema 34. Mitral valve disorder 35. MRSA Conjunctivitis (txted with Clindamycin y Dr. Zuñiga for 1 month) 36. Neoplasm of uncertain behavior of skin 37. Nocturia 38. Osteoporosis 39. Otitis externa 40. Palpitations 41. Postmenopausal atrophic vaginitis 42. PVC (premature ventricular contraction) 43. Recurrent UTI 44. Rib pain on right side 45. Shortness of breath 46. Solitary pulmonary nodule 47. Squamous cell carcinoma of skin 48. Vitamin B12 deficiency 49. Weakness Past Surgical History: 1. Appendectomy 2. Biopsy Bone Marrow 3. Bilateral cataract extractions 4. Bilateral Knee Replacement 5. Left Breast Lumpectomy 6. Oral Surgery Tooth Extraction 7. Thyroidectomy 8. Tonsillectomy With Adenoidectomy Family History Patient reports no known family medical history. 1. cardiac disorder Social History Social Drinker Former smoker Marital History - Currently Social alcohol use Uses sunscreen, SPP >30 Hx Tobacco Use In Past Year?: No (QUIT 33 YRS AGO) Smoking Status: Former Smoker Marital status: Housing status: lives with family Occupational Status: retired Immunizations History of Influenza Vaccine: No History of Tetanus Vaccine?: Yes Tetanus Immunization Date: Feb 26, 2000 History of Pneumococcal: Yes History of Hepatitis B Vaccine: No History of MDRO History of MDRO: Yes Type of MDRO: VRE, MRSA Allergies Coded Allergies: Celecoxib (Verified Allergy, Intermediate, RASH, 11/09/16) Penicillins (Verified Allergy, Intermediate, MOUTH SWELLING/RASH, 11/09/16) Cephalosporins (Verified Allergy, Unknown, HIVES, 11/09/16) Sulfa Antibiotics (Verified Allergy, Unknown, DIFFICULTY AMBULATING, ) Lorazepam (Verified Adverse Reaction, Severe, hallucinations, 11/09/16) Oxycodone (Verified Adverse Reaction, Severe, hallucinations, 11/09/16) Arformoterol (Verified Adverse Reaction, Intermediate, GI SYMPTOMS, ) 'SHAKINESS, HYPERNESS' Clarithromycin (Verified Adverse Reaction, Intermediate, GI SYMPTOMS, 11/09) DIARRHEA Current Medications Reported Home Medications Medications Dose Route/Sig Max Daily Dose Days Date Category Dose Instructions Imitrex (Sumatriptan Succinate) 50 Mg Tab 50 Mg PO PRN 11/09/16 Reported 1 tab at onset of migraine may repeat after 2 hours if ineffective Artificial Tears (Lwusmlsy-Ezpfpqivdkxf-Kvneygsq) 1 Ceasar Ceasar 1 Drop OPB Q2H 07/11/16 Reported Protonix (Pantoprazole Sodium) 40 Mg Tab 40 Mg PO DAILY 07/11/16 Reported Mometasone Furoate (Mometasone Furoate (Nasal)) 50 Mcg/Act Spr 2 Sprays MIRTHA QAM 07/11/16 Reported Ventolin Hfa (Albuterol) 200 Puffs/95811 Mcg Aers 2 Puffs INH Q6H PRN 07/11/16 Reported Spiriva Handihaler (Tiotropium [place]) 5 Puff/90 Mcg Aerp 1 Cap INH QAM 07/11/16 Reported 1CAPSULE INHALE ORALLY IN THE MORNING, TAKE TWO SEPERATE INHALATIONS VIA HANDIHALER DEVICE Albuterol Sulfate (Albuterol Sulf) 2.5 Mg/3 Ml Nebu 1 Vial NEB Q4 PRN 07/11/16 Reported Imodium (Loperamide HCl) 2 Mg Cap 2 Mg PO UD PRN 12/21/15 Reported Fioricet (Eaexdyuzzl-Ujjelnntwtxlw-Loavt) 1 Cap Cap 1 Tab PO Q12H PRN 12/21/15 Reported Magnesium-Oxide (Magnesium Oxide) 400 Mg Tab 400 Mg PO BID 30 11/29/15 Rx Tylenol (Acetaminophen) 325 Mg Tab 650 Mg PO BID 11/23/15 Reported Levothyroxine Sodium 175 Mcg Tab 175 Mcg PO QAM 11/15/15 Reported Cyanocobalamin 1,000 Mcg/Ml Inj 1,000 Mcg IM WK 06/21/14 Reported WED[place]ES[place]YS Centrum Silver Adult 50+ (Multiple Vitamins W/ Minerals) 1 Tab Tab 1 Tab PO QAM 06/21/14 Reported adult chewable Lipitor (Atorvastatin Calcium) 20 Mg Tab 20 Mg PO HS 05/11/14 Reported Advair Diskus 500-50 Mcg/Dose (Fluticasone Prop/Salmeterol) 14 Puff/1 Inhaler Aerp 1 Puff INH AMHS 05/11/14 Reported Claritin (Loratadine) 10 Mg Tab 10 Mg PO Q24H PRN 12/25/13 Reported Nadolol 40 Mg Tab 40 Mg PO HS 11/23/13 Reported Tums (Calcium Carbonate) 500 Mg Chew 1,000 Mg PO AMHS 09/13/13 Reported Physical Physical Exam Vital Signs: Date Time Temp Pulse Resp B/P (MAP) Pulse Ox O2 Delivery O2 Flow Rate FiO2 11/09/16 15:53 36.6 80 18 146/86 98 11/09/16 15:48 80 18 148/96 98 Room Air 11/09/16 14:50 82 20 129/106 98 Nasal Cannula 3.0 11/09/16 14:29 98 Nasal Cannula 3.0 11/09/16 13:07 79 11/09/16 12:27 75 18 120/70 98 Nasal Cannula 3.0 11/09/16 11:14 72 18 143/75 99 Nasal Cannula 3.0 11/09/16 11:00 73 18 99 Nasal Cannula 2.0 11/09/16 10:33 98 Nasal Cannula 3.0 11/09/16 10:18 36.5 88 26 136/81 91 Room Air 11/09/16 10:18 98 Nasal Cannula 3.0 11/09/16 10:14 75 General Appearance: cachetic, other (ill-appearing female notably cachectic with no apparent respiratory distress) Head: NORMOCEPHALIC, ATRAUMATIC Eyes: other (mild deviation of the left eye poor pupillary response bilaterally , cataract lens and placed on the left eye) ENT: other (dry mucous membranes with posterior oropharyngeal cobblestoning and diffuse mucous secretions, I inspected the posterior throat with a Yankauer and flashlight but was unable to see any foreign object) Neck: other (no stridor but notable air auscultations) Respiratory: rhonchi, wheezing Cardiovasular: REGULAR RATE/RHYTHM, NORMAL S1S2, NO M/G/R Abdomen: NON TENDER, NORMAL BOWEL SOUNDS, NO REBOUND, NO MASSES Genitourinary - Female: EXTERNAL GENITALIA NORMAL Pelvic: CERVIX NORMAL Back: NORMAL INSPECTION, NO MIDLINE TENDERNESS, NO CVA TENDERNESS Upper Extremities: NO EDEMA, NO DEFORMITY Lower Extremities: edema Edema: RLE (2+) Pulses: carotid (R) (1+), carotid (L) (1+), dorsalis pedis (R) (1+), dorsalis pedis (L) (1+) Neuro: ALERT, ORIENTED x 3 Reflexes: biceps (R) (1+), bicpes (L) (1+) Babinski Testing: right (downgoing), left (downgoing) Psychiatric: NORMAL AFFECT Diagnostics Labs Results Past 24 Hours Test 11/09/16 10:10 11/09/16 10:24 Range/Units White Blood Count 9.23 4.8-10.8 K/uL Red Blood Count 3.39 4.2-5.4 M/uL Hemoglobin 11.3 12.0-16.0 g/dL Hematocrit 34.1 37-47 % Mean Corpuscular Volume 100.6 80-100 fL Mean Corpuscular Hemoglobin 33.3 25-34 pg Mean Corpuscular Hemoglobin Concent 33.1 32-36 g/dl Platelet Count 164 130-400 K/uL Mean Platelet Volume 9.7 7.4-10.4 fL Neutrophils (%) (Auto) 78.6 % Lymphocytes (%) (Auto) 12.6 % Monocytes (%) (Auto) 8.5 % Eosinophils (%) (Auto) 0.0 % Basophils (%) (Auto) 0.2 % Neutrophils # (Auto) 7.26 1.4-6.5 K/uL Lymphocytes # (Auto) 1.16 1.2-3.4 K/uL Monocytes # (Auto) 0.78 0.11-0.59 K/uL Eosinophils # (Auto) 0.00 0-0.5 K/uL Basophils # (Auto) 0.02 0-0.2 K/uL RDW Standard Deviation 45.8 36.4-46.3 fL RDW Coefficient of Variation 12.4 11.5-14.5 % Immature Granulocyte % (Auto) 0.1 % Immature Granulocyte # (Auto) 0.01 0.00-0.02 K/uL Prothrombin Time 10.6 9.0-12.0 SECONDS Prothromb Time International Ratio 1.0 0.9-1.1 Activated Partial Thromboplast Time 27.8 21.0-31.0 SECONDS Partial Thromboplastin Ratio 1.1 Sodium Level 135 136-145 mmol/L Potassium Level 4.0 3.5-5.1 mmol/L Chloride Level 102 98-107 mmol/L Carbon Dioxide Level 29 21-32 mmol/L Anion Gap 4.0 3-11 mmol/L Blood Urea Nitrogen 17 7-18 mg/dl Creatinine 0.69 0.60-1.20 mg/dl Est Creatinine Clear Calc Drug Dose 47.2 ml/min Estimated GFR () 95.3 Estimated GFR (Non- 82.2 BUN/Creatinine Ratio 24.2 10-20 Random Glucose 105 70-99 mg/dl Calcium Level 9.0 8.5-10.1 mg/dl Total Bilirubin 0.4 0.2-1 mg/dl Aspartate Amino Transf (AST/SGOT) 20 15-37 U/L Alanine Aminotransferase (ALT/SGPT) 34 12-78 U/L Alkaline Phosphatase 68 45-117 U/L Troponin I < 0.015 0-0.045 ng/ml Total Protein 6.5 6.4-8.2 gm/dl Albumin 3.5 3.4-5.0 gm/dl Globulin 3.0 2.5-4.0 gm/dl Albumin/Globulin Ratio 1.2 0.9-2 Bedside Lactic Acid Venous 0.92 0.90-1.70 mmol/L Microbiology Results 11/09/16 Blood Culture, Received Pending 11/09/16 Blood Culture, Received Pending Diagnostic Radiology CXR compared to 07/11/16 No acute changes, hyperinflation with bronchiectasis especially in the RLL EKG NSR with rate of 73 Impression Assessment and Plan 81-year-old female with chronic bronchiectasis admitted for progressive dyspnea: #1 Bronchiectasis: Patient had previous bronchoscopic evaluations one done in [facility] in July 2013 which was reported to grow MAC. Patient also has chronic changes on her chest x-rays with a CT of the thorax 05/12/2013 showing lingular and right middle lobe bronchiectasis with mild atelectasis. At this time I will order a high resolution CAT scan in attempt is obtain sputum for further evaluation of MAC or other atypical infections. In the future this patient might require repeat bronchoscopy for further evaluation. Also will initiate Levaquin 750 mg for 5 day course and continue current steroids. #2 Dyspnea: Dyspnea most likely combination of bronchiectasis but also possible PE versus DVT. Initial read on the right lower extremity DVT does show proximal DVTs. For workup of a possible PE as well as bronchiectasis will order CT angiography at this time. We will initiate the patient on Xarelto at this time for DVT and possible pulmonary embolism. #3 Sinusitis: We'll also order CT noncontrast of the sinus for evaluation of signs and symptoms consistent with chronic sinusitis.
[2016-11-09 19:14] VITALS: PULSE 84; O2SAT 97
[2016-11-09] MEDS: FORMOTEROL FUMA NEBULIZER SOLN 20 MCG/2 ML VIAL INH SCH (19:14)
[2016-11-09] MEDS ORDERED: ALPRAZOLAM 0.25 MG TAB ONE (19:27)
[2016-11-09] MEDS ORDERED: NURSING VERBAL MED ORDER ONE (19:30)
[2016-11-09 20:00] VITALS: BP 145/78; PULSE 78; TEMP 36.4; O2SAT 91
--- NOTE | 2016-11-09 20:27 | DIAGNOSTIC IMAGING REPORT ---
CT SCAN OF THE PARANASAL SINUSES CLINICAL HISTORY: Chronic sinusitis. COMPARISON STUDY: CT of the brain dated 07/11/2016. TECHNIQUE: High-resolution CT scan of the paranasal sinuses is performed. Images are reviewed in the axial, sagittal, and coronal planes. IV contrast was not administered for this examination. CT DOSE: 644.65 mGy.cm FINDINGS: Maxillary antra: There is trace dependent mucosal thickening in the left maxillary antrum. The maxillary antra are otherwise clear bilaterally. Anterior ethmoid sinuses: Clear. Posterior ethmoid sinuses: Clear. Sphenoid sinuses: Clear. Frontal sinuses: Clear. Ostiomeatal complexes: Patent bilaterally. Frontoethmoidal and sphenoethmoidal recesses: Patent bilaterally. Carotid arteries: The carotid arteries are protuberant but covered. A septal attachment is seen on the right. Ethmoid roofs: The ethmoid roofs are symmetric. Nasal turbinates: Normal in appearance. Nasal septum: There is mild leftward deviation of the bony nasal septum a large spur. Optic nerves: Covered. Orbits: The bony orbits are intact. Orbital contents are normal in appearance noting bilateral ocular lens implants. Calvarium: The skeletal structures are osteopenic. The imaged calvarium is normal in appearance. Mastoid air cells: Well pneumatized. Brain parenchyma: Partially visualized brain parenchyma is within normal limits noting age-related involutional change. IMPRESSION: No significant paranasal sinus disease. See above. Electronically signed by: Tristian Galvez M.D. 11/09/2016 8:26 PM Dictated Date/Time: 11/09/2016 8:23 PM
--- NOTE | 2016-11-09 20:38 | DIAGNOSTIC IMAGING REPORT ---
CT ANGIOGRAM OF THE CHEST CLINICAL HISTORY: Dyspnea. COMPARISON STUDY: Chest x-ray dated 11/09/2016. TECHNIQUE: Following the IV administration of 91 cc of Optiray 320, CT angiogram of the chest was performed from the upper abdomen to the thoracic inlet utilizing the pulmonary embolus protocol. Images are reviewed in the axial, sagittal, and coronal planes. 3-D MIPS images are created and assessed. IV contrast was administered without complication. The examination is significantly degraded by motion artifact, as well as by streak artifact from the arms which could not be elevated above the chest. CT DOSE: 296.11 mGy.cm FINDINGS: Thyroid: Atrophic. Thoracic aorta: There is atherosclerotic calcification of the thoracic aorta, which is normal in caliber and demonstrates standard 3-vessel arch anatomy. No dissection is seen. Pulmonary vasculature: The pulmonary trunk is dilated, measuring up to 3.9 cm. This suggests pulmonary artery hypertension. There are filling defects identified within the distal right lower lobe pulmonary artery which extend into segmental and segment segmental branches. This is consistent with pulmonary embolus. No additional pulmonary emboli are identified. Evaluation of the peripheral branches is degraded by motion artifact. Heart: The heart is enlarged and without pericardial effusion. There are coronary artery calcifications. Lungs and pleural spaces: Advanced emphysematous change is identified. Foci of scarring are seen throughout both lungs. No lobar consolidation or pleural effusion is identified. The trachea and central airways are clear. Scattered tree-in-bud airspace opacities are present in the lower lobes. There is an 11 mm pleural-based density in the right lower lobe seen on image #142. A 6 mm left apical nodule is seen on image #253. Mediastinum: There is no mediastinal lymphadenopathy. Amanda: Clear. Axillae: There is no axillary lymphadenopathy. Upper abdomen: There is fluid seen throughout the esophagus. Partially visualized upper abdominal viscera is within normal limits. Skeletal structures: The skeletal structures are osteopenic. Degenerative change and scoliosis are noted in the thoracic spine. There is a severe compression deformity of L1 with evidence of previous vertebroplasty. A severe compression deformity is also seen at T9. Healed rib fractures are observed. No lytic or blastic bony lesions are seen. IMPRESSION: 1. Significantly motion and streak artifact degraded examination. 2. Pulmonary emboli are seen within the distal right lower lobe pulmonary artery extending into segmental and subsegmental branches. 3. Cardiomegaly with evidence of pulmonary artery hypertension. 4. Advanced emphysema. 5. There is no lobar consolidation or pleural effusion. Tree-in-bud opacities at the lung bases are nonspecific and may represent a mild infectious/inflammatory pneumonitis. Clinical correlation will be required. 6. There is fluid present within the upper esophagus. This may place the patient risk for aspiration. Clinical correlation will be required. 7. There is an 11 mm pleural-based nodular density in the right lower lobe as well as a 6 mm pulmonary nodule at the left apex. These are indeterminant and follow-up is recommend. See below. 8. Additional findings as above. Please refer to below summary of Fleischner criteria recommendations for follow-up of incidental CT nodules (Zane Burnett, Guidelines for management of small pulmonary nodules detected on CT scans: A statement from the Fleischner Society, Radiology 237: [phone].) SOLID NODULES Solitary nodule size: <6 mm * low risk patients: no follow-up needed * high risk patients: optional CT at 12 months Solitary nodule size: 6-8 mm * low risk patients: follow-up at 6-12 months, then consider further follow-up at 18-24 months * high risk patients: initial follow-up CT at 6-12 months and then at 18-24 months if no change Solitary nodule size: >8 mm * either low or high risk patients - consider follow-up CT at 3 months, and/or CT-PET, and/or biopsy Multiple nodules size: <6 mm * low risk patients: no routine follow-up * high risk patients: optional CT at 12 months Multiple nodules size: 6-8 mm * low risk patients: follow-up at 3-6 months, then consider further follow-up at 18-24 months * high risk patients: follow-up at 3-6 months, then at 18-24 months if no change Multiple nodules size: >8 mm * low risk patients: follow-up at 3-6 months, then consider further follow-up at 18-24 months * high risk patients: follow-up at 3-6 months, then at 18-24 months if no change Note: newly detected indeterminate nodule in persons 35 years of age or older. * low risk patients: minimal or absent history of smoking and/or other known risk factors * high risk patients: history of smoking or of other known risk factors (e.g. first degree relative with lung cancer, or exposure to asbestos, radon, uranium) * if a nodule up to 8 mm is partly solid or is ground glass further follow-up is required after 24 months to exclude possible slow growing adenocarcinoma (LOS) SUBSOLID NODULES Solitary pure ground-glass nodule * nodule size <6 mm - no CT follow-up required * nodule size >=6 mm - follow-up CT at 6-12 months, then every 2 years until 5 years Solitary part-solid nodule * nodule size <6 mm - no CT follow-up required * nodule size >=6 mm - follow-up CT at 3-6 months. If unchanged, and solid component remains <6 mm, then annual follow-up for 5 years Multiple subsolid nodules * nodule size <6 mm - follow-up CT at 3-6 months, consider further follow-up at 2 and 4 years if stable * nodule size >=6 mm - follow-up CT at 3-6 months, subsequent management based on the most suspicious nodule(s) Electronically signed by: Tristian Galvez M.D. 11/09/2016 8:37 PM Dictated Date/Time: 11/09/2016 8:29 PM
[2016-11-09] MEDS: CALCIUM CARBONATE 500 MG CHEWABLE PO SCH (20:47)
[2016-11-09] MEDS: ACETAMINOPHEN 325 MG TAB PO SCH ×2 (20:47→22:13)
[2016-11-09] MEDS: MAGNESIUM OXIDE 400 MG TAB PO SCH (20:48)
[2016-11-09] MEDS ORDERED: RIVAROXABAN 20 MG TAB PO SCH (21:00)
[2016-11-09] MEDS ORDERED: HEPARIN SOD 5000 UNIT/0.5 ML CARP SQ SCH (21:00)
[2016-11-09] MEDS: NADOLOL 40 MG TAB PO SCH (21:29)
[2016-11-09] MEDS: ATORVASTATIN 20 MG TAB PO SCH (21:29)
[2016-11-09] MEDS: RIVAROXABAN TAB 15 MG TAB PO SCH (21:30)
[2016-11-09] MEDS: LEVOFLOXACIN / D5W 750 MG in PREMIXED IN D5W 150 ML IV SCH (22:13)
[2016-11-09 23:24] VITALS: BP 108/63; PULSE 72; TEMP 36.4; O2SAT 99
[2016-11-10] VITALS (10 sets, daily range): BP systolic 114–133; BP diastolic 67–77; PULSE 71–80; TEMP 36.4–36.8; O2SAT 93–97
[2016-11-10] MEDS: METHYLPREDNISOLONE IV 40 MG in SYRINGE 0 ML IV SCH ×3 (00:54→16:27)
[2016-11-10] MEDS ORDERED: ALPRAZOLAM 0.25 MG TAB ONE (03:02)
[2016-11-10] MEDS ORDERED: NURSING VERBAL MED ORDER ONE ×2 (03:15→12:30)
[2016-11-10] MEDS ORDERED: ALPRAZOLAM 0.25 MG TAB PO PRN (03:30)
[2016-11-10 04:49] LABS: HEMATOCRIT 32.7 % (37-47); MEAN CELL VOLUME 98.8 fL (80-100); MEAN CORPUSCULAR HEMOGLOBIN 32.6 pg (25-34); MEAN PLATELET VOLUME 9.1 fL (7.4-10.4); PLATELET COUNT 157 K/uL (130-400); RED BLOOD COUNT 3.31 M/uL (4.2-5.4); WHITE BLOOD COUNT 7.78 K/uL (4.8-10.8)
[2016-11-10 04:56] LABS: PARTIAL THROMBOPLASTIN RATIO 1.2
[2016-11-10 05:06] LABS: BUN/CREATININE RATIO 28.6 (10-20); CREATININE 0.52 mg/dl (0.60-1.20); POTASSIUM 4.1 mmol/L (3.5-5.1)
[2016-11-10] MEDS: LEVOTHYROXINE 175 MCG TAB PO SCH (05:41)
[2016-11-10] MEDS: ALBUT/IPRATROP 3MG/0.5MG NEB 3 ML VIAL INH SCH ×4 (07:26→19:01)
[2016-11-10] MEDS: FORMOTEROL FUMA NEBULIZER SOLN 20 MCG/2 ML VIAL INH SCH ×2 (07:26→19:02)
[2016-11-10] MEDS: TIOTROPIUM BROMIDE 5 PUFF/90 MCG INH INH SCH (07:56)
[2016-11-10] MEDS: CALCIUM CARBONATE 500 MG CHEWABLE PO SCH ×2 (07:57→20:09)
[2016-11-10] MEDS: PANTOprazole SOD 40 MG TAB PO SCH (07:57)
[2016-11-10] MEDS: MAGNESIUM OXIDE 400 MG TAB PO SCH ×2 (07:57→20:06)
[2016-11-10] MEDS: ACETAMINOPHEN 325 MG TAB PO SCH ×3 (07:58→20:12)
[2016-11-10] MEDS: RIVAROXABAN TAB 15 MG TAB PO SCH ×2 (07:58→20:07)
--- NOTE | 2016-11-10 13:22 | Hospitalist Progress Note ---
Hospitalist Progress Note Date of Service Nov 10, 2016. Subjective very short of breath this am. unable to bring phlegm up. no chest pressure hasn't had anything to eat yet. Objective Vital Signs Date Time Temp Pulse Resp B/P (MAP) Pulse Ox O2 Delivery O2 Flow Rate FiO2 11/10/16 12:00 Nasal Cannula 3.0 11/10/16 11:43 36.5 73 20 133/72 (92) 96 Nasal Cannula 2.0 11/10/16 11:12 72 18 95 Nasal Cannula 2.0 11/10/16 08:00 Nasal Cannula 3.0 11/10/16 07:26 80 18 96 Nasal Cannula 3.0 11/10/16 07:17 36.4 71 20 127/67 (87) 97 Nasal Cannula 3.0 11/10/16 04:00 Nasal Cannula 3.0 11/10/16 03:59 36.7 74 22 128/76 (93) 97 Nasal Cannula 3.0 11/10/16 00:00 Nasal Cannula 3.0 11/09/16 23:24 36.4 72 21 108/63 (78) 99 Nasal Cannula 3.0 11/09/16 20:00 Nasal Cannula 3.0 11/09/16 20:00 36.4 78 22 145/78 (100) 91 Nasal Cannula 3.0 11/09/16 19:14 84 18 97 Nasal Cannula 3.0 11/09/16 16:00 Nasal Cannula 3.0 11/09/16 16:00 36.4 77 20 137/82 (100) 100 Nasal Cannula 3.0 11/09/16 15:53 36.6 80 18 146/86 98 11/09/16 15:48 80 18 148/96 98 Room Air 11/09/16 14:50 82 20 129/106 98 Nasal Cannula 3.0 11/09/16 14:29 98 Nasal Cannula 3.0 11/09/16 13:07 79 Physical Exam General Appearance: + moderate distress (respiratory distress) Respiratory/Chest: + respiratory distress, + rhonchi, + pertinent finding ( upper airway secretions sound) Cardiovascular: regular rate, rhythm Abdomen: normal bowel sounds, non tender, soft Neurologic/Psychiatric: alert, oriented x 3 Skin: warm/dry Laboratory Results Last 24 Hours Test 11/10/16 04:40 11/10/16 09:36 White Blood Count 7.78 K/uL Red Blood Count 3.31 M/uL Hemoglobin 10.8 g/dL Hematocrit 32.7 % Mean Corpuscular Volume 98.8 fL Mean Corpuscular Hemoglobin 32.6 pg Mean Corpuscular Hemoglobin Concent 33.0 g/dl RDW Standard Deviation 43.7 fL RDW Coefficient of Variation 12.1 % Platelet Count 157 K/uL Mean Platelet Volume 9.1 fL Activated Partial Thromboplast Time 31.4 SECONDS Partial Thromboplastin Ratio 1.2 Sodium Level 134 mmol/L Potassium Level 4.1 mmol/L Chloride Level 101 mmol/L Carbon Dioxide Level 26 mmol/L Anion Gap 7.0 mmol/L Blood Urea Nitrogen 15 mg/dl Creatinine 0.52 mg/dl Est Creatinine Clear Calc Drug Dose 62.7 ml/min Estimated GFR () 104.6 Estimated GFR (Non- 90.2 BUN/Creatinine Ratio 28.6 Random Glucose 107 mg/dl Calcium Level 9.0 mg/dl Prealbumin 15.8 mg/dl Assessment and Plan 81 y/o F here with acute respiratory distress sec to bronchiectasis exac Dyspnea - Sec to PE and copd exac Acute COPD exacerbation secondary to infectious/inflammatory pneumonitis - - Severe emphysema noted on CT scan. - previous bronchoscopic evaluations one done in [facility] in July 2013 which was reported to grow MAC. - CT of the thorax 05/12/2013 showing lingular and right middle lobe bronchiectasis with mild atelectasis. - Levaquin 750 mg for 5 day course and continue current steroids. - IV steroids - Nebs - Pul consulted. - Check echo for signs of corpulmonale. Last echo from 2015 - mild to moderate AR with normal right heart pressure Fluid in upper esophagus - ? sec to the barium swallow done before the CT scan Pleural based nodular density RLL, Pul nodule in left apex - Outpatient f/u Acute DVT and PE - started on xarelto Hypothyroid - Synthroid GERD - PPI Cachexia - Check Prealbumin She is a full code Xarelto
--- NOTE | 2016-11-10 14:43 | Pulmonology Progress Note ---
Pulmonary Progress Note Date of Service Nov 10, 2016. Attending Dr. Marquez Subjective The patient still feels short of breath. She feels this is about the same as yesterday. She does not however feel or hear the noises in her chest to be nearly as loud today. She admitted to having a lot of apprehension. She does not have any chest pains. She has not been expectorating any sputum. The breathing medicines by nebulizer do seem to help her feel somewhat better. Objective The patient looked somewhat short of breath at rest. She is weak. She was sleeping when I came into the room but she awakened readily. Her temperature is 36.5. Mouth exam showed no exudate. Palpation of the neck reveals no lymph nodes. The patient is extremely slender. Her weight is 46.3 kg with a BMI of 17.5. The chest showed diminished excursions. Upper airway rhonchi could be heard without a stethoscope. With the stethoscope rhonchi can be heard bilaterally posteriorly and anteriorly. Her respiratory rate was 22 breaths per minute. The heart rate was 73 per minute. The blood pressure is 133/72. The abdomen is soft. Bowel sounds were present. There was no tenderness to palpation. Extremities showed no cyanosis clubbing or edema. White blood cell count today is 7.78. Hemoglobin is 10.8. Platelets are 157, 000. Electrolytes show sodium 134 potassium 4.1 chloride 101 bicarbonate 26. The B1 is 15 with a creatinine of 0.52. Random glucose was 107. Pre-albumin was 15.8. CT showed pulmonary emboli within the distal right lower lobe pulmonary artery extending into the segmental and subsegmental branches. Advanced emphysema was noted. Pulmonary hypertension was suggested. Some tree in bud opacities at the lung bases were nonspecific. There was fluid present in the upper esophagus. Assessment & Plan Impressions: 1 acute pulmonary embolism 2 deep vein thrombosis involving the superficial femoral and popliteal on the right 3 fluid filled esophagus-worrisome for aspiration-uncertain etiology 4 asthma by history with emphysema reported on CAT scan 5 history of M AC infection Comments and recommendations: The patient remains very congested. She may be slightly better than yesterday. This congestion may be originating from the lungs but alternatively it could be related to fluid in the esophagus that is then being aspirated. She did have a negative barium swallow I will order a flutter valve. We will also order a vibration vest. We should keep her head elevated 30 or more at all times to help prevent aspiration. I would suggest an echocardiogram if it has not been done recently in light of the possible pulmonary hypertension. Would continue with her antibiotics and breathing treatments. Would continue the steroids. Data Medications: Current Inpatient Medications Medications (Trade) Dose Ordered Sig/Theo Route Start Time Stop Time Status Last Admin Dose Admin Acetaminophen (Tylenol Tab) 650 mg BID PO 11/09/16 21:00 12/09/16 20:59 11/10/16 07:58 650 MG Atorvastatin Calcium (Lipitor Tab) 20 mg HS PO 11/09/16 21:00 12/09/16 20:59 11/09/16 21:29 20 MG Calcium Carbonate (Tums Chew Tab) 1,000 mg AMHS PO 11/09/16 21:00 12/09/16 20:59 11/10/16 07:57 1,000 MG Levothyroxine Sodium (Synthroid Tab) 175 mcg DAILYBB PO 11/10/16 06:00 12/10/16 06:59 Loperamide HCl (Imodium Cap) 2 mg PRN PRN PO 11/09/16 13:45 12/09/16 13:44 Loratadine (Claritin Tab) 10 mg Q24H PRN PO 11/09/16 13:45 12/09/16 13:44 Magnesium Oxide (Mag-Ox Tab) 400 mg BID PO 11/09/16 21:00 12/09/16 20:59 11/10/16 07:57 400 MG Nadolol (Corgard Tab) 40 mg HS PO 11/09/16 21:00 12/09/16 20:59 11/09/16 21:29 40 MG Pantoprazole Sodium (Protonix Tab) 40 mg DAILY PO 11/10/16 09:00 12/10/16 08:59 11/10/16 07:57 40 MG Sumatriptan Succinate (Imitrex Tab) 50 mg DAILY PRN PO 11/09/16 13:45 12/09/16 13:44 Tiotropium [employer] (Spiriva Handihaler Inhaler) 1 puff QAM INH 11/10/16 09:00 12/10/16 08:59 11/10/16 07:56 1 PUFF Methylprednisolone Sodium Succinate 40 mg/Syringe 0.64 ml @ 1.5 mls/min Q8H IV 11/09/16 16:30 12/09/16 13:59 11/10/16 07:54 1.5 MLS/MIN Formoterol Fumarate (Perforomist 20MCG/2ML Neb Soln) 20 mcg BIDR INH 11/09/16 20:00 12/09/16 19:59 11/10/16 07:26 20 MCG Albuterol/ Ipratropium (Duoneb) 3 ml QIDR INH 11/09/16 16:00 12/09/16 15:59 11/10/16 11:12 3 ML Albuterol/ Ipratropium (Duoneb) 3 ml Q2H PRN INH 11/09/16 13:45 12/09/16 13:44 Acetaminophen (Tylenol Tab) 650 mg Q4H PRN PO 11/09/16 14:15 12/09/16 14:14 Al Hydrox/Mg Hydrox/Simethicone (Maalox Max Susp) 15 ml Q4H PRN PO 11/09/16 14:15 12/09/16 14:14 Magnesium Hydroxide (Milk Of Magnesia Susp) 30 ml Q12H PRN PO 11/09/16 14:15 12/09/16 14:14 Ondansetron HCl (Zofran Inj) 4 mg Q6H PRN IV 11/09/16 14:15 12/09/16 14:14 Polyethylene (Miralax Powder Packet) 17 gm DAILY PRN PO 11/09/16 14:15 12/09/16 14:14 Levofloxacin 750 mg/Prmx 150 ml @ 100 mls/hr Q2D@2000 IV 11/09/16 20:30 11/16/16 19:59 11/09/16 22:13 100 MLS/HR Rivaroxaban (Xarelto Tab) 15 mg BID PO 11/09/16 21:00 12/09/16 20:59 11/10/16 07:58 15 MG Alprazolam (Xanax Tab) 0.25 mg BID PRN PO 11/10/16 03:30 12/10/16 03:29 11/10/16 12:54 0.25 MG I & O: 24-Hour Column 11/11/16 08:00 Output Total 400 ml Balance -400 ml Vital Signs: Date Time Temp Pulse Resp B/P (MAP) Pulse Ox O2 Delivery O2 Flow Rate FiO2 11/10/16 12:00 Nasal Cannula 3.0 11/10/16 11:43 36.5 73 20 133/72 (92) 96 Nasal Cannula 2.0 11/10/16 11:12 72 18 95 Nasal Cannula 2.0 11/10/16 08:00 Nasal Cannula 3.0 11/10/16 07:26 80 18 96 Nasal Cannula 3.0 11/10/16 07:17 36.4 71 20 127/67 (87) 97 Nasal Cannula 3.0 11/10/16 04:00 Nasal Cannula 3.0 11/10/16 03:59 36.7 74 22 128/76 (93) 97 Nasal Cannula 3.0 11/10/16 00:00 Nasal Cannula 3.0 11/09/16 23:24 36.4 72 21 108/63 (78) 99 Nasal Cannula 3.0 11/09/16 20:00 Nasal Cannula 3.0 11/09/16 20:00 36.4 78 22 145/78 (100) 91 Nasal Cannula 3.0 11/09/16 19:14 84 18 97 Nasal Cannula 3.0 11/09/16 16:00 Nasal Cannula 3.0 11/09/16 16:00 36.4 77 20 137/82 (100) 100 Nasal Cannula 3.0 11/09/16 15:53 36.6 80 18 146/86 98 11/09/16 15:48 80 18 148/96 98 Room Air 11/09/16 14:50 82 20 129/106 98 Nasal Cannula 3.0 11/09/16 14:29 98 Nasal Cannula 3.0 Laboratory Results: Last 24 Hours Test 11/10/16 04:40 11/10/16 09:36 White Blood Count 7.78 K/uL Red Blood Count 3.31 M/uL Hemoglobin 10.8 g/dL Hematocrit 32.7 % Mean Corpuscular Volume 98.8 fL Mean Corpuscular Hemoglobin 32.6 pg Mean Corpuscular Hemoglobin Concent 33.0 g/dl RDW Standard Deviation 43.7 fL RDW Coefficient of Variation 12.1 % Platelet Count 157 K/uL Mean Platelet Volume 9.1 fL Activated Partial Thromboplast Time 31.4 SECONDS Partial Thromboplastin Ratio 1.2 Sodium Level 134 mmol/L Potassium Level 4.1 mmol/L Chloride Level 101 mmol/L Carbon Dioxide Level 26 mmol/L Anion Gap 7.0 mmol/L Blood Urea Nitrogen 15 mg/dl Creatinine 0.52 mg/dl Est Creatinine Clear Calc Drug Dose 62.7 ml/min Estimated GFR () 104.6 Estimated GFR (Non- 90.2 BUN/Creatinine Ratio 28.6 Random Glucose 107 mg/dl Calcium Level 9.0 mg/dl Prealbumin 15.8 mg/dl
[2016-11-10] MEDS: ACETAMINOPHEN/CODEINE 300/30MG TAB PO PRN ×2 (16:26→21:14)
[2016-11-10] MEDS: ATORVASTATIN 20 MG TAB PO SCH (20:06)
[2016-11-10] MEDS: NADOLOL 40 MG TAB PO SCH (20:06)
[2016-11-11] VITALS (10 sets, daily range): BP systolic 121–151; BP diastolic 71–86; PULSE 76–92; TEMP 36.4–36.9; O2SAT 92–97
[2016-11-11] MEDS: METHYLPREDNISOLONE IV 40 MG in SYRINGE 0 ML IV SCH ×4 (00:30→23:40)
[2016-11-11] MEDS: ONDANSETRON INJ 2 MG/ML 2 ML VIAL IV PRN ×3 (01:19→17:03)
[2016-11-11 04:37] LABS: HEMATOCRIT 33.3 % (37-47); MEAN CELL VOLUME 97.7 fL (80-100); MEAN CORPUSCULAR HEMOGLOBIN 33.4 pg (25-34); MEAN CORPUSCULAR HGB CONC 34.2 g/dl (32-36); MEAN PLATELET VOLUME 9.1 fL (7.4-10.4); PLATELET COUNT 177 K/uL (130-400); RED BLOOD COUNT 3.41 M/uL (4.2-5.4); WHITE BLOOD COUNT 11.34 K/uL (4.8-10.8)
[2016-11-11 04:48] LABS: PARTIAL THROMBOPLASTIN RATIO 1.2
[2016-11-11 04:55] LABS: BUN/CREATININE RATIO 29.9 (10-20); CALCIUM 8.6 mg/dl (8.5-10.1); CREATININE 0.53 mg/dl (0.60-1.20); POTASSIUM 4.5 mmol/L (3.5-5.1)
[2016-11-11] MEDS: LEVOTHYROXINE 175 MCG TAB PO SCH (06:00)
[2016-11-11] MEDS: ALBUT/IPRATROP 3MG/0.5MG NEB 3 ML VIAL INH SCH ×4 (07:02→19:13)
[2016-11-11] MEDS: FORMOTEROL FUMA NEBULIZER SOLN 20 MCG/2 ML VIAL INH SCH ×2 (07:02→19:13)
[2016-11-11] MEDS: TIOTROPIUM BROMIDE 5 PUFF/90 MCG INH INH SCH (07:45)
[2016-11-11] MEDS: MAGNESIUM OXIDE 400 MG TAB PO SCH ×2 (07:45→21:04)
[2016-11-11] MEDS: ACETAMINOPHEN 325 MG TAB PO SCH ×2 (07:46→21:03)
[2016-11-11] MEDS: RIVAROXABAN TAB 15 MG TAB PO SCH (07:46)
[2016-11-11] MEDS: PANTOprazole SOD 40 MG TAB PO SCH (07:46)
[2016-11-11] MEDS: CALCIUM CARBONATE 500 MG CHEWABLE PO SCH ×2 (07:46→21:01)
[2016-11-11] MEDS ORDERED: NURSING VERBAL MED ORDER ONE (10:00)
--- NOTE | 2016-11-11 11:51 | Hospitalist Progress Note ---
Hospitalist Progress Note Date of Service Nov 11, 2016. Subjective was confused last night. alert this am Constitutional: No fever Respiratory: + shortness of breath (better since yesterday) Cardiovascular: No chest pain Abdomen: No pain, No nausea Objective Vital Signs Date Time Temp Pulse Resp B/P (MAP) Pulse Ox O2 Delivery O2 Flow Rate FiO2 11/11/16 08:00 Nasal Cannula 3.0 11/11/16 07:45 36.8 76 17 147/78 (101) 95 Nasal Cannula 3.0 11/11/16 07:04 76 18 93 Nasal Cannula 3.0 11/11/16 04:00 Nasal Cannula 3.0 11/11/16 03:44 36.6 79 24 129/71 (90) 95 Nasal Cannula 3.0 11/11/16 00:01 Nasal Cannula 3.0 11/10/16 23:44 36.7 76 20 130/75 (93) 95 Nasal Cannula 3.0 11/10/16 20:17 36.8 77 18 114/73 (87) 94 Nasal Cannula 3.0 11/10/16 20:00 Nasal Cannula 3.0 11/10/16 19:02 76 20 93 Nasal Cannula 2.0 11/10/16 16:00 Nasal Cannula 3.0 11/10/16 15:57 36.8 79 18 131/77 (95) 96 Nasal Cannula 3.0 11/10/16 15:22 72 20 96 Nasal Cannula 2.0 11/10/16 12:00 Nasal Cannula 3.0 11/10/16 11:43 36.5 73 20 133/72 (92) 96 Nasal Cannula 2.0 Physical Exam General Appearance: + moderate distress Respiratory/Chest: + respiratory distress, + pertinent finding (upper airway conducted sound) Cardiovascular: regular rate, rhythm Abdomen: normal bowel sounds, non tender, soft Neurologic/Psychiatric: alert, oriented x 3 Skin: warm/dry Laboratory Results Last 24 Hours Test 11/11/16 04:30 White Blood Count 11.34 K/uL Red Blood Count 3.41 M/uL Hemoglobin 11.4 g/dL Hematocrit 33.3 % Mean Corpuscular Volume 97.7 fL Mean Corpuscular Hemoglobin 33.4 pg Mean Corpuscular Hemoglobin Concent 34.2 g/dl RDW Standard Deviation 42.7 fL RDW Coefficient of Variation 11.9 % Platelet Count 177 K/uL Mean Platelet Volume 9.1 fL Activated Partial Thromboplast Time 30.4 SECONDS Partial Thromboplastin Ratio 1.2 Sodium Level 128 mmol/L Potassium Level 4.5 mmol/L Chloride Level 94 mmol/L Carbon Dioxide Level 28 mmol/L Anion Gap 6.0 mmol/L Blood Urea Nitrogen 16 mg/dl Creatinine 0.53 mg/dl Est Creatinine Clear Calc Drug Dose 61.9 ml/min Estimated GFR () 103.9 Estimated GFR (Non- 89.7 BUN/Creatinine Ratio 29.9 Random Glucose 135 mg/dl Calcium Level 8.6 mg/dl Assessment and Plan 81 y/o F here with acute respiratory distress sec to bronchiectasis exac Dyspnea - Sec to PE and copd exac Acute Asthma/COPD exacerbation secondary to infectious/inflammatory pneumonitis - - Severe emphysema noted on CT scan done this admission - previous bronchoscopic evaluations one done in [facility] in July 2013 which was reported to grow MAC. - CT of the thorax 05/12/2013 showing lingular and right middle lobe bronchiectasis with mild atelectasis. - Continue Levaquin 750 mg for 5 day course and continue current steroids. - IV steroids - Nebs - Pul following. - Check echo for signs of corpulmonale. Last echo from 2016 - mild to moderate AR with normal right heart pressure - Flutter valve Fluid in upper esophagus - ? sec to the barium swallow done before the CT scan Hematuria - Hold Xarelto. Start IV heparin. Follow. Episode of confusion - stop xanax, tylenol #3 Pleural based nodular density RLL, Pul nodule in left apex - Outpatient f/u Acute DVT and PE - started on xarelto Hypothyroid - Synthroid GERD - PPI Cachexia - Check Prealbumin She is a full code IV heparin drip
[2016-11-11 12:46] LABS: BASO % 0.1 %; BASO ABS # 0.01 K/uL (0-0.2); COMPLETE YES; IG% 0.3 %; LYMPH % 12.4 %; LYMPH ABS # 1.38 K/uL (1.2-3.4); MONO % 5.3 %; NEUT % 81.9 %
[2016-11-11 12:58] LABS: INR 1.1 (0.9-1.1)
--- NOTE | 2016-11-11 13:59 | Pulmonology Progress Note ---
Pulmonary Progress Note Date of Service Nov 11, 2016. Attending Dr. Marquez Subjective The patient continues with a lot of upper airway noises which can be heard throughout the room. She thinks it might be a little less. She says she is still short of breath. Her son was present during this evaluation. I had noticed that the patient was constantly staring at the ceiling and was not looking at me. Her son stated that they have noticed that since last night. It seemed to start after she got a pain medicine which may have been Tylenol with Codeine. He states that when she was in the hospital previously she became confused while hospitalized and was worsened with any pain med or sedation. The patient seemed to be a little bit suspicious of everything and everybody. A new problem develops which is hematuria. The anticoagulation was changed to heparin. Patient indicated the flutter valve makes her very fatigued. According to her son she had refused it last evening. She did not get the vibration vest yet. Objective The patient did not appear in distress. One could hear rhonchi without a stethoscope. She was cooperative and alert. She seems slightly paranoid. Her eyes were focusing on the ceiling. She does have nystagmus. When I asked her to count fingers she was able to do this properly. ENT exam was unremarkable and unchanged from yesterday. Temperature was 36.6. Heart rate was 81. Blood pressure was 135/80. Lung panda reveal diffuse rhonchi bilaterally. Respiratory rate was 20+ per minute and not labored. Oxygen saturation was 97% on 3 L. The abdomen was soft and nontender. Bowel sounds were present. Today's white blood cell count was elevated at 11.34. Hemoglobin is 11.4. Platelets were 177,000. Today's sodium was low at 128 compared with 134 yesterday. Potassium is 4.5. Chloride was 94 and bicarbonate 28. The BUN was 16 with a creatinine of 0.53. Assessment & Plan Impressions: 1 acute pulmonary embolism 2 deep vein thrombosis involving the superficial femoral and popliteal on the right 3 fluid filled esophagus-worrisome for aspiration-uncertain etiology 4 asthma by history with emphysema reported on CAT scan 5 history of M AC infection Comments and recommendations: The patient seems clinically about the same as yesterday. She remains very congested. They do have her elevated at about 30. I explained to the patient and her son the reason we are doing this. I have no explanation for the fluid seen in the esophagus but I still have some concerns that that might be related to her congestion. I'm going to recheck a chest x-ray tomorrow. Hopefully they will have the vibration vest available for her tomorrow. I believe she should likely have a urology opinion regarding the hematuria. Thus far she is not adequately anticoagulated with heparin. We need to do so in order to treat the acute pulmonary embolic disease. It is possible the hematuria is in part related to the catheter itself. Data Medications: Current Inpatient Medications Medications (Trade) Dose Ordered Sig/Theo Route Start Time Stop Time Status Last Admin Dose Admin Acetaminophen (Tylenol Tab) 650 mg BID PO 11/09/16 21:00 12/09/16 20:59 11/10/16 07:58 650 MG Atorvastatin Calcium (Lipitor Tab) 20 mg HS PO 11/09/16 21:00 12/09/16 20:59 11/10/16 20:06 20 MG Calcium Carbonate (Tums Chew Tab) 1,000 mg AMHS PO 11/09/16 21:00 12/09/16 20:59 11/11/16 07:46 1,000 MG Levothyroxine Sodium (Synthroid Tab) 175 mcg DAILYBB PO 11/10/16 06:00 12/10/16 06:59 11/11/16 06:00 175 MCG Loperamide HCl (Imodium Cap) 2 mg PRN PRN PO 11/09/16 13:45 12/09/16 13:44 Loratadine (Claritin Tab) 10 mg Q24H PRN PO 11/09/16 13:45 12/09/16 13:44 Magnesium Oxide (Mag-Ox Tab) 400 mg BID PO 11/09/16 21:00 12/09/16 20:59 11/11/16 07:45 400 MG Nadolol (Corgard Tab) 40 mg HS PO 11/09/16 21:00 12/09/16 20:59 11/10/16 20:06 40 MG Pantoprazole Sodium (Protonix Tab) 40 mg DAILY PO 11/10/16 09:00 12/10/16 08:59 11/11/16 07:46 40 MG Sumatriptan Succinate (Imitrex Tab) 50 mg DAILY PRN PO 11/09/16 13:45 12/09/16 13:44 Tiotropium [place] (Spiriva Handihaler Inhaler) 1 puff QAM INH 11/10/16 09:00 12/10/16 08:59 11/11/16 07:45 1 PUFF Methylprednisolone Sodium Succinate 40 mg/Syringe 0.64 ml @ 1.5 mls/min Q8H IV 11/09/16 16:30 12/09/16 13:59 11/11/16 07:53 1.5 MLS/MIN Formoterol Fumarate (Perforomist 20MCG/2ML Neb Soln) 20 mcg BIDR INH 11/09/16 20:00 12/09/16 19:59 11/11/16 07:02 20 MCG Albuterol/ Ipratropium (Duoneb) 3 ml QIDR INH 11/09/16 16:00 12/09/16 15:59 11/11/16 11:17 3 ML Albuterol/ Ipratropium (Duoneb) 3 ml Q2H PRN INH 11/09/16 13:45 12/09/16 13:44 Acetaminophen (Tylenol Tab) 650 mg Q4H PRN PO 11/09/16 14:15 12/09/16 14:14 Al Hydrox/Mg Hydrox/Simethicone (Maalox Max Susp) 15 ml Q4H PRN PO 11/09/16 14:15 12/09/16 14:14 Magnesium Hydroxide (Milk Of Magnesia Susp) 30 ml Q12H PRN PO 11/09/16 14:15 12/09/16 14:14 11/11/16 07:43 30 ML Ondansetron HCl (Zofran Inj) 4 mg Q6H PRN IV 11/09/16 14:15 12/09/16 14:14 11/11/16 11:21 4 MG Polyethylene (Miralax Powder Packet) 17 gm DAILY PRN PO 11/09/16 14:15 12/09/16 14:14 11/11/16 09:09 17 GM Levofloxacin 750 mg/Prmx 150 ml @ 100 mls/hr Q2D@2000 IV 11/09/16 20:30 11/16/16 19:59 11/09/16 22:13 100 MLS/HR Rivaroxaban (Xarelto Tab) 15 mg BID PO 11/09/16 21:00 12/09/16 20:59 Future Hold 11/11/16 07:46 15 MG Alprazolam (Xanax Tab) 0.25 mg BID PRN PO 11/10/16 03:30 12/10/16 03:29 Future Hold 11/10/16 12:54 0.25 MG Acetaminophen/ Codeine Phosphate (Tylenol w/ Codeine #3 Tab) 1 tab QID PRN PO 11/10/16 16:00 12/10/16 15:59 Future Hold 11/10/16 21:14 1 TAB Docusate Sodium (coLACE CAP) 100 mg BID PO 11/11/16 21:00 12/11/16 20:59 Heparin Sodium/ Dextrose 500 ml @ 17 mls/hr Q24H PRN IV 11/11/16 17:00 12/11/16 16:59 Vital Signs: Date Time Temp Pulse Resp B/P (MAP) Pulse Ox O2 Delivery O2 Flow Rate FiO2 11/11/16 12:00 Nasal Cannula 3.0 11/11/16 11:53 36.6 81 19 135/80 (98) 97 Nasal Cannula 3.0 11/11/16 11:18 84 20 95 Nasal Cannula 3.0 11/11/16 08:00 Nasal Cannula 3.0 11/11/16 07:45 36.8 76 17 147/78 (101) 95 Nasal Cannula 3.0 11/11/16 07:04 76 18 93 Nasal Cannula 3.0 11/11/16 04:00 Nasal Cannula 3.0 11/11/16 03:44 36.6 79 24 129/71 (90) 95 Nasal Cannula 3.0 11/11/16 00:01 Nasal Cannula 3.0 11/10/16 23:44 36.7 76 20 130/75 (93) 95 Nasal Cannula 3.0 11/10/16 20:17 36.8 77 18 114/73 (87) 94 Nasal Cannula 3.0 11/10/16 20:00 Nasal Cannula 3.0 11/10/16 19:02 76 20 93 Nasal Cannula 2.0 11/10/16 16:00 Nasal Cannula 3.0 11/10/16 15:57 36.8 79 18 131/77 (95) 96 Nasal Cannula 3.0 11/10/16 15:22 72 20 96 Nasal Cannula 2.0 Laboratory Results: Last 24 Hours Test 11/11/16 04:30 11/11/16 12:21 White Blood Count 11.34 K/uL Red Blood Count 3.41 M/uL Hemoglobin 11.4 g/dL Hematocrit 33.3 % Mean Corpuscular Volume 97.7 fL Mean Corpuscular Hemoglobin 33.4 pg Mean Corpuscular Hemoglobin Concent 34.2 g/dl Platelet Count 177 K/uL Mean Platelet Volume 9.1 fL Neutrophils (%) (Auto) 81.9 % Lymphocytes (%) (Auto) 12.4 % Monocytes (%) (Auto) 5.3 % Eosinophils (%) (Auto) 0.0 % Basophils (%) (Auto) 0.1 % Neutrophils # (Auto) 9.12 K/uL Lymphocytes # (Auto) 1.38 K/uL Monocytes # (Auto) 0.59 K/uL Eosinophils # (Auto) 0.00 K/uL Basophils # (Auto) 0.01 K/uL RDW Standard Deviation 42.7 fL RDW Coefficient of Variation 11.9 % Immature Granulocyte % (Auto) 0.3 % Immature Granulocyte # (Auto) 0.03 K/uL Nucleated RBC Absolute Count (auto) 0.00 K/uL Nucleated Red Blood Cells % 0.0 % Activated Partial Thromboplast Time 30.4 SECONDS Partial Thromboplastin Ratio 1.2 Sodium Level 128 mmol/L Potassium Level 4.5 mmol/L Chloride Level 94 mmol/L Carbon Dioxide Level 28 mmol/L Anion Gap 6.0 mmol/L Blood Urea Nitrogen 16 mg/dl Creatinine 0.53 mg/dl Est Creatinine Clear Calc Drug Dose 61.9 ml/min Estimated GFR () 103.9 Estimated GFR (Non- 89.7 BUN/Creatinine Ratio 29.9 Random Glucose 135 mg/dl Calcium Level 8.6 mg/dl Prothrombin Time 12.0 SECONDS Prothromb Time International Ratio 1.1
[2016-11-11] MEDS: HEPARIN 25,000 UNIT/500ML D5W 500 ML IV PRN (17:01)
[2016-11-11] MEDS: LEVOFLOXACIN / D5W 750 MG in PREMIXED IN D5W 150 ML IV SCH (19:23)
[2016-11-11] MEDS: NADOLOL 40 MG TAB PO SCH (21:02)
[2016-11-11] MEDS: ATORVASTATIN 20 MG TAB PO SCH (21:02)
[2016-11-11] MEDS: DOCUSATE SODIUM 100 MG CAP PO SCH (21:03)
[2016-11-11 23:39] LABS: PARTIAL THROMBOPLASTIN RATIO 2.1
[2016-11-12] VITALS (10 sets, daily range): BP systolic 118–138; BP diastolic 74–83; PULSE 73–98; TEMP 36.6–36.8; O2SAT 92–99
[2016-11-12 05:04] LABS: HEMATOCRIT 32.1 % (37-47); MEAN CELL VOLUME 94.7 fL (80-100); MEAN CORPUSCULAR HGB CONC 34.9 g/dl (32-36); PLATELET COUNT 206 K/uL (130-400); RED BLOOD COUNT 3.39 M/uL (4.2-5.4); WHITE BLOOD COUNT 10.36 K/uL (4.8-10.8)
[2016-11-12 05:22] LABS: PARTIAL THROMBOPLASTIN RATIO 2.4
[2016-11-12 05:27] LABS: BUN/CREATININE RATIO 35.5 (10-20); CREATININE 0.56 mg/dl (0.60-1.20); POTASSIUM 4.3 mmol/L (3.5-5.1)
[2016-11-12] MEDS: LEVOTHYROXINE 175 MCG TAB PO SCH (05:45)
[2016-11-12] MEDS: FORMOTEROL FUMA NEBULIZER SOLN 20 MCG/2 ML VIAL INH SCH ×2 (07:52→20:00)
[2016-11-12] MEDS: ALBUT/IPRATROP 3MG/0.5MG NEB 3 ML VIAL INH SCH ×4 (07:52→20:00)
[2016-11-12] MEDS: TIOTROPIUM BROMIDE 5 PUFF/90 MCG INH INH SCH (08:45)
[2016-11-12] MEDS: METHYLPREDNISOLONE IV 40 MG in SYRINGE 0 ML IV SCH ×2 (08:45→16:53)
[2016-11-12] MEDS: MAGNESIUM OXIDE 400 MG TAB PO SCH ×2 (09:00→20:53)
[2016-11-12] MEDS: CALCIUM CARBONATE 500 MG CHEWABLE PO SCH ×2 (09:00→20:53)
[2016-11-12] MEDS: PANTOprazole SOD 40 MG TAB PO SCH (09:00)
[2016-11-12] MEDS: ACETAMINOPHEN 325 MG TAB PO SCH ×2 (09:00→20:53)
[2016-11-12] MEDS: DOCUSATE SODIUM 100 MG CAP PO SCH ×2 (09:00→20:52)
--- NOTE | 2016-11-12 09:07 | Family Medicine Progress Note ---
Progress Note Date of Service Nov 12, 2016. Subjective Pt evaluation today including: conversation w/ patient, conversation w/ family , physical exam, chart review, lab review, conversation w/ bilingual sales consultant, review of inpatient medication list Pain: Back pain reported by patient PO Intake: 0% today Voiding: lowe catheter in place 81 yo female admitted for SOB/acute COPD exacerbation, found to have acute DVT in left leg/PE. Complicated by hematuria after xarelto administration; switched to IV heparin. This morning she was communicating and able to complete full sentences, though intermittently confused. She reported back pain. On rounds, patient's son and were present who agreed to continue with aggressive measures. Constitutional: + weakness, + fatigue Eyes: No see HPI, No worsening of vision, No eye pain, No redness, No discharge, No diplopia, No problem reported Respiratory: + see HPI, + sputum, + shortness of breath, + dyspnea at rest Cardiovascular: No see HPI, No chest pain, No orthopnea, No PND, No edema, No claudication, No palpitations, No problem reported Musculoskeletal: + problem reported (back pain reported by patient) Heme: + abnormal bleeding/bruising (family noticed hematuria ) Medications Current Inpatient Medications Medications (Trade) Dose Ordered Sig/Theo Route Start Time Stop Time Status Last Admin Dose Admin Acetaminophen (Tylenol Tab) 650 mg BID PO 11/09/16 21:00 12/09/16 20:59 11/11/16 21:03 650 MG Atorvastatin Calcium (Lipitor Tab) 20 mg HS PO 11/09/16 21:00 12/09/16 20:59 11/11/16 21:02 20 MG Calcium Carbonate (Tums Chew Tab) 1,000 mg AMHS PO 11/09/16 21:00 12/09/16 20:59 11/11/16 21:01 1,000 MG Levothyroxine Sodium (Synthroid Tab) 175 mcg DAILYBB PO 11/10/16 06:00 12/10/16 06:59 11/11/16 06:00 175 MCG Loperamide HCl (Imodium Cap) 2 mg PRN PRN PO 11/09/16 13:45 12/09/16 13:44 Loratadine (Claritin Tab) 10 mg Q24H PRN PO 11/09/16 13:45 12/09/16 13:44 Magnesium Oxide (Mag-Ox Tab) 400 mg BID PO 11/09/16 21:00 12/09/16 20:59 11/11/16 21:04 400 MG Nadolol (Corgard Tab) 40 mg HS PO 11/09/16 21:00 12/09/16 20:59 11/11/16 21:02 40 MG Pantoprazole Sodium (Protonix Tab) 40 mg DAILY PO 11/10/16 09:00 12/10/16 08:59 11/11/16 07:46 40 MG Sumatriptan Succinate (Imitrex Tab) 50 mg DAILY PRN PO 11/09/16 13:45 12/09/16 13:44 Tiotropium [place] (Spiriva Handihaler Inhaler) 1 puff QAM INH 11/10/16 09:00 12/10/16 08:59 11/11/16 07:45 1 PUFF Methylprednisolone Sodium Succinate 40 mg/Syringe 0.64 ml @ 1.5 mls/min Q8H IV 11/09/16 16:30 12/09/16 13:59 11/11/16 23:40 1.5 MLS/MIN Formoterol Fumarate (Perforomist 20MCG/2ML Neb Soln) 20 mcg BIDR INH 11/09/16 20:00 12/09/16 19:59 11/12/16 07:52 20 MCG Albuterol/ Ipratropium (Duoneb) 3 ml QIDR INH 11/09/16 16:00 12/09/16 15:59 11/11/16 15:13 3 ML Albuterol/ Ipratropium (Duoneb) 3 ml Q2H PRN INH 11/09/16 13:45 12/09/16 13:44 Acetaminophen (Tylenol Tab) 650 mg Q4H PRN PO 11/09/16 14:15 12/09/16 14:14 Al Hydrox/Mg Hydrox/Simethicone (Maalox Max Susp) 15 ml Q4H PRN PO 11/09/16 14:15 12/09/16 14:14 Magnesium Hydroxide (Milk Of Magnesia Susp) 30 ml Q12H PRN PO 11/09/16 14:15 12/09/16 14:14 11/11/16 07:43 30 ML Ondansetron HCl (Zofran Inj) 4 mg Q6H PRN IV 11/09/16 14:15 12/09/16 14:14 11/11/16 17:03 4 MG Polyethylene (Miralax Powder Packet) 17 gm DAILY PRN PO 11/09/16 14:15 12/09/16 14:14 11/11/16 09:09 17 GM Levofloxacin 750 mg/Prmx 150 ml @ 100 mls/hr Q2D@2000 IV 11/09/16 20:30 11/16/16 19:59 11/11/16 19:23 100 MLS/HR Rivaroxaban (Xarelto Tab) 15 mg BID PO 11/09/16 21:00 12/09/16 20:59 Future Hold 11/11/16 07:46 15 MG Alprazolam (Xanax Tab) 0.25 mg BID PRN PO 11/10/16 03:30 12/10/16 03:29 Future Hold 11/10/16 12:54 0.25 MG Acetaminophen/ Codeine Phosphate (Tylenol w/ Codeine #3 Tab) 1 tab QID PRN PO 11/10/16 16:00 12/10/16 15:59 Future Hold 11/10/16 21:14 1 TAB Docusate Sodium (coLACE CAP) 100 mg BID PO 11/11/16 21:00 12/11/16 20:59 11/11/16 21:03 100 MG Heparin Sodium/ Dextrose 500 ml @ 17 mls/hr Q24H PRN IV 11/11/16 17:00 12/11/16 16:59 11/11/16 17:01 17 MLS/HR Enteral Nutritional Formula (Boost) 1 can TIDM PO 11/12/16 11:30 12/12/16 11:29 Objective Vital Signs Date Time Temp Pulse Resp B/P (MAP) Pulse Ox O2 Delivery O2 Flow Rate FiO2 11/12/16 08:10 36.8 92 28 133/83 (100) 95 Nasal Cannula 4.0 11/12/16 07:18 93 20 94 Nasal Cannula 4.0 11/12/16 04:00 Nasal Cannula 3.0 11/12/16 03:30 36.7 98 23 138/83 (101) 92 Nasal Cannula 4.0 11/12/16 00:01 Nasal Cannula 3.0 11/11/16 23:50 36.9 92 22 121/73 (89) 92 Nasal Cannula 4.0 11/11/16 20:00 Nasal Cannula 3.0 11/11/16 19:28 36.9 82 22 146/74 (98) 93 Nasal Cannula 3.0 11/11/16 19:14 81 20 95 Nasal Cannula 3.0 11/11/16 16:00 Nasal Cannula 3.0 11/11/16 15:36 36.4 89 20 151/86 (107) 96 Nasal Cannula 3.0 11/11/16 15:13 82 20 95 Nasal Cannula 3.0 11/11/16 12:00 Nasal Cannula 3.0 11/11/16 11:53 36.6 81 19 135/80 (98) 97 Nasal Cannula 3.0 11/11/16 11:18 84 20 95 Nasal Cannula 3.0 Physical Exam General Appearance: + cachetic, + thin Eyes: normal inspection, PERRL, EOMI, sclerae normal ENT: hearing grossly normal, + nasal drainage, + pertinent finding (dry mouth with secrections) Neck: supple, no adenopathy, no carotid bruits, trachea midline Respiratory/Chest: + decreased breath sounds, + rhonchi Cardiovascular: regular rate, rhythm Abdomen: non tender, soft Extremities: normal inspection, no pedal edema Neurologic/Psychiatric: alert, + disoriented, + pertinent finding (hypoactive delirium) Skin: normal color Laboratory Results 11/12/16 04:40 11/12/16 04:40 Test 11/11/16 12:21 11/12/16 04:40 11/12/16 09:17 Prothrombin Time 12.0 SECONDS (9.0-12.0) Prothromb Time International Ratio 1.1 (0.9-1.1) Red Blood Count 3.39 M/uL (4.2-5.4) Mean Corpuscular Volume 94.7 fL (80-100) Mean Corpuscular Hemoglobin 33.0 pg (25-34) Mean Corpuscular Hemoglobin Concent 34.9 g/dl (32-36) RDW Standard Deviation 40.2 fL (36.4-46.3) RDW Coefficient of Variation 11.7 % (11.5-14.5) Mean Platelet Volume 9.0 fL (7.4-10.4) Activated Partial Thromboplast Time 63.2 SECONDS (21.0-31.0) Partial Thromboplastin Ratio 2.4 Anion Gap 7.0 mmol/L (3-11) Est Creatinine Clear Calc Drug Dose 59.3 ml/min Estimated GFR () 102.1 Estimated GFR (Non- 88.1 BUN/Creatinine Ratio 35.5 (10-20) Calcium Level 9.0 mg/dl (8.5-10.1) Assessment and Plan 81 yo female initially presented with dyspnea/acute COPD exacerbation, found to have Acute PE/DVT in left leg, was placed on IV heparin and now has gross hematuria. Today active issues include: worsening respiratory status and hypoactive delirium. Acute asthma/copd exacerbation 2/to infectious/inflammatory pneumonitis Continues to have diffuse rhonchi bilaterally. CXR ordered today--results show no change from yesterday Currently on formotorol neb; not given duoneb today. On day 4 of levaquin IV, will complete 5 day course Steroids: 40 mg methylprednisolone q8h IV; keep IV for another day. Hematuria Need to reassess and potentially adjust medication/dosage Consider urology consult Acute DVT/PE Still on IV heparin May consider IVC filter Acute Metabolic Encephalopathy Likely hypoactive delirium alert and orientated to month and day, Intermittent nonsensical statements. consider other causes--r/o infection, changes in blood gas, hyponatremia Hyponatremia On admission Na 135, today Na 126; slowly trending downwards continue to monitor; h/o hyponatremia in 2014 will check serum/urine osmol, urine Na+ today Malnutrition Prealbumin low Boost supplement provided History of MAC--contact precautions Full code DVT prophylaxis--IV heparin drip Resident Physician Supervision Note: I was present with PGY1 Dr. Kell Diaz during the history and exam. I discussed the case with the resident and agree with the findings and plan as documented in the note. Any exceptions or clarifications are listed here: acute DVT is present in the right leg. Patient lethargic this am, not evening awakening to her own son calling her name. Telemetry normal overnight. Son/ confirm she has worsened from a mental status standpoint since the weekend. Having a hard time handling secretions. Poor oral intake. VSS, no fever gen - thin, looks poor, sickly, mild supraclavicular retractions neck - unable to assess for JVD mouth - MM slightly dry heart - RRR lungs - course BS b/l, some rhonchi and end-exp wheeze, no rales, retractions as noted above abd - soft, ND, BS+ ext - right leg is larger than left leg, pulses 2+ b/l, 1+ edema right ankle labs - Na 126 CBC acceptable A/P: 1. acute hypoxic/hypercarbic respiratory failure. 2. suspected aspiration pneumonia. 3. COPD with exacerbation. 4. metabolic encephalopathy. 5. worsening hyponatremia. 6. acute RLE DVT with PEs. 7. gross hematuria. 8. h/o recurrent UTIs per the . 9. recent cystoscopy in outpatient urology clinic - per Dr. Moreno's note there was large area of erythema on bladder wall, unknown etiology. Urine osm, urine Na, serum osm due to #5. Serial Na levels. BIPAP. ABG. Cont abx and steroids. address code status given her worsening status. send formal u/a - r/o UTI, but suspect hematuria is due to heparin in setting of #9. She may need IVC filter - consider vascular consultation. /son updated at bedside. status is guarded given her worsening status and comorbidities. Documented By: Asim Diallo MD Resident Tracking Resident Involvement: Resident Care Provided Care Provided: Adult [facility]
--- NOTE | 2016-11-12 10:52 | DIAGNOSTIC IMAGING REPORT ---
CHEST ONE VIEW PORTABLE CLINICAL HISTORY: Diffuse rhonchi. Acute respiratory failure. COMPARISON STUDY: 11/09/2016 FINDINGS: There is radiographic evidence of pulmonary emphysema. The heart is at the upper limits of normal in size. There is no failure. There is no focal pulmonary consolidation. There are no significant pleural effusions. No pneumothorax is visualized.[ IMPRESSION: No significant change from the prior study. No acute findings. Electronically signed by: Kp Rojas M.D. 11/12/2016 10:51 AM Dictated Date/Time: 11/12/2016 10:50 AM
[2016-11-12] MEDS: BOOST VANILLA PO SCH ×4 (11:30→16:44)
--- NOTE | 2016-11-12 12:56 | Pulmonology Progress Note ---
Pulmonary Progress Note Date of Service Nov 12, 2016. Attending Dr. Marquez Subjective The patient seems to be doing a little worse today. She is not as alert. She persists with what seems like upper airway rhonchi. They don't seem too much changed. Her saturations have remained good despite the fact that her level of alertness has declined. Her speech is more garbled today. She has not had any sedation according to nursing staff. She remains extremely weak. She has persisted with hematuria. Objective The patient is very weak. I am not certain that she recognized me today. Her eyes were once again not focusing. I could not get her to count fingers today. Her temperature is 36.6. She has not had any significant fever since admission. Her speech is garbled. Heart rate was 85 per minute. The blood pressure is 124/74. The respiratory rate is 28 breaths per minute. It is somewhat shallow. Rhonchi are heard diffusely bilaterally both anteriorly and posteriorly. In spite of this her saturation is 99% on 4 L. She has not been able to cough up any secretions. Nursing and respiratory have tried suctioning her with minimal success. She did not tolerate the past. The abdomen is soft and nontender. She still has a Kline in place. It still shows bloody urine. Extremities show no cyanosis or clubbing and there is mild edema. Chest x-ray today showed no acute process. White count today is 10.36. Hemoglobin is 11.2. Platelets 206,000. Urinary sodium is 45. Urine osmolality is 679. Serum sodium this morning was 126. It had been 135 a few days ago. Assessment & Plan Impressions: 1 acute pulmonary embolism 2 deep vein thrombosis involving the superficial femoral and popliteal on the right 3 fluid filled esophagus-worrisome for aspiration-uncertain etiology 4 diffuse rhonchi suggesting retained secretions 5 asthma by history with emphysema reported on CAT scan 6 history of M AC infection Comments and recommendations: The patient is doing poorly. Her altered mental status would be worrisome for some carbon dioxide retention. She is not able to clear secretions. Despite this her x-rays are clear. 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 It is surprising she is oxygenating as well as she has. I discussed the case with Dr. Diallo. We discussed the possibility of moving the patient to ICU. I have no objection to that. I think she should be given a trial of CPAP or BiPAP. Ideally I would like to have an arterial blood gas. A venous blood gas was ordered echoes of her being on anticoagulation. Nonetheless if the venous gas seems to be not helpful I would proceed with an arterial blood gas. Data Medications: Current Inpatient Medications Medications (Trade) Dose Ordered Sig/Theo Route Start Time Stop Time Status Last Admin Dose Admin Acetaminophen (Tylenol Tab) 650 mg BID PO 11/09/16 21:00 12/09/16 20:59 11/11/16 21:03 650 MG Atorvastatin Calcium (Lipitor Tab) 20 mg HS PO 11/09/16 21:00 12/09/16 20:59 11/11/16 21:02 20 MG Calcium Carbonate (Tums Chew Tab) 1,000 mg AMHS PO 11/09/16 21:00 12/09/16 20:59 11/11/16 21:01 1,000 MG Levothyroxine Sodium (Synthroid Tab) 175 mcg DAILYBB PO 11/10/16 06:00 12/10/16 06:59 11/11/16 06:00 175 MCG Loperamide HCl (Imodium Cap) 2 mg PRN PRN PO 11/09/16 13:45 12/09/16 13:44 Loratadine (Claritin Tab) 10 mg Q24H PRN PO 11/09/16 13:45 12/09/16 13:44 Magnesium Oxide (Mag-Ox Tab) 400 mg BID PO 11/09/16 21:00 12/09/16 20:59 11/11/16 21:04 400 MG Nadolol (Corgard Tab) 40 mg HS PO 11/09/16 21:00 12/09/16 20:59 11/11/16 21:02 40 MG Pantoprazole Sodium (Protonix Tab) 40 mg DAILY PO 11/10/16 09:00 12/10/16 08:59 11/11/16 07:46 40 MG Sumatriptan Succinate (Imitrex Tab) 50 mg DAILY PRN PO 11/09/16 13:45 12/09/16 13:44 Tiotropium [place] (Spiriva Handihaler Inhaler) 1 puff QAM INH 11/10/16 09:00 12/10/16 08:59 11/11/16 07:45 1 PUFF Methylprednisolone Sodium Succinate 40 mg/Syringe 0.64 ml @ 1.5 mls/min Q8H IV 11/09/16 16:30 12/09/16 13:59 11/11/16 23:40 1.5 MLS/MIN Formoterol Fumarate (Perforomist 20MCG/2ML Neb Soln) 20 mcg BIDR INH 11/09/16 20:00 12/09/16 19:59 11/12/16 07:52 20 MCG Albuterol/ Ipratropium (Duoneb) 3 ml QIDR INH 11/09/16 16:00 12/09/16 15:59 11/11/16 15:13 3 ML Albuterol/ Ipratropium (Duoneb) 3 ml Q2H PRN INH 11/09/16 13:45 12/09/16 13:44 Acetaminophen (Tylenol Tab) 650 mg Q4H PRN PO 11/09/16 14:15 12/09/16 14:14 Al Hydrox/Mg Hydrox/Simethicone (Maalox Max Susp) 15 ml Q4H PRN PO 11/09/16 14:15 12/09/16 14:14 Magnesium Hydroxide (Milk Of Magnesia Susp) 30 ml Q12H PRN PO 11/09/16 14:15 12/09/16 14:14 11/11/16 07:43 30 ML Ondansetron HCl (Zofran Inj) 4 mg Q6H PRN IV 11/09/16 14:15 12/09/16 14:14 11/11/16 17:03 4 MG Polyethylene (Miralax Powder Packet) 17 gm DAILY PRN PO 11/09/16 14:15 12/09/16 14:14 11/11/16 09:09 17 GM Levofloxacin 750 mg/Prmx 150 ml @ 100 mls/hr Q2D@2000 IV 11/09/16 20:30 11/16/16 19:59 11/11/16 19:23 100 MLS/HR Rivaroxaban (Xarelto Tab) 15 mg BID PO 11/09/16 21:00 12/09/16 20:59 Future Hold 11/11/16 07:46 15 MG Alprazolam (Xanax Tab) 0.25 mg BID PRN PO 11/10/16 03:30 12/10/16 03:29 Future Hold 11/10/16 12:54 0.25 MG Acetaminophen/ Codeine Phosphate (Tylenol w/ Codeine #3 Tab) 1 tab QID PRN PO 11/10/16 16:00 12/10/16 15:59 Future Hold 11/10/16 21:14 1 TAB Docusate Sodium (coLACE CAP) 100 mg BID PO 11/11/16 21:00 12/11/16 20:59 11/11/16 21:03 100 MG Heparin Sodium/ Dextrose 500 ml @ 17 mls/hr Q24H PRN IV 11/11/16 17:00 12/11/16 16:59 11/11/16 17:01 17 MLS/HR Enteral Nutritional Formula (Boost) 1 can TIDM PO 11/12/16 11:30 12/12/16 11:29 Vital Signs: Date Time Temp Pulse Resp B/P (MAP) Pulse Ox O2 Delivery O2 Flow Rate FiO2 11/12/16 11:38 36.6 85 28 124/74 (91) 99 Nasal Cannula 4.0 11/12/16 08:10 36.8 92 28 133/83 (100) 95 Nasal Cannula 4.0 11/12/16 08:00 Nasal Cannula 4.0 11/12/16 07:18 93 20 94 Nasal Cannula 4.0 11/12/16 04:00 Nasal Cannula 3.0 11/12/16 03:30 36.7 98 23 138/83 (101) 92 Nasal Cannula 4.0 11/12/16 00:01 Nasal Cannula 3.0 11/11/16 23:50 36.9 92 22 121/73 (89) 92 Nasal Cannula 4.0 11/11/16 20:00 Nasal Cannula 3.0 11/11/16 19:28 36.9 82 22 146/74 (98) 93 Nasal Cannula 3.0 11/11/16 19:14 81 20 95 Nasal Cannula 3.0 11/11/16 16:00 Nasal Cannula 3.0 11/11/16 15:36 36.4 89 20 151/86 (107) 96 Nasal Cannula 3.0 11/11/16 15:13 82 20 95 Nasal Cannula 3.0 Laboratory Results: Last 24 Hours Test 11/11/16 23:00 11/12/16 00:00 11/12/16 04:40 11/12/16 09:17 Activated Partial Thromboplast Time 53.8 SECONDS 63.2 SECONDS Partial Thromboplastin Ratio 2.1 2.4 Urine Osmolality 679 mOms/kg Urine Random Sodium 45 mEq/L White Blood Count 10.36 K/uL Red Blood Count 3.39 M/uL Hemoglobin 11.2 g/dL Hematocrit 32.1 % Mean Corpuscular Volume 94.7 fL Mean Corpuscular Hemoglobin 33.0 pg Mean Corpuscular Hemoglobin Concent 34.9 g/dl RDW Standard Deviation 40.2 fL RDW Coefficient of Variation 11.7 % Platelet Count 206 K/uL Mean Platelet Volume 9.0 fL Sodium Level 126 mmol/L Potassium Level 4.3 mmol/L Chloride Level 90 mmol/L Carbon Dioxide Level 29 mmol/L Anion Gap 7.0 mmol/L Blood Urea Nitrogen 20 mg/dl Creatinine 0.56 mg/dl Est Creatinine Clear Calc Drug Dose 59.3 ml/min Estimated GFR () 102.1 Estimated GFR (Non- 88.1 BUN/Creatinine Ratio 35.5 Random Glucose 156 mg/dl Calcium Level 9.0 mg/dl Thyroid Stimulating Hormone (TSH) 0.569 uIu/ml Osmolality 266 mOsm/kg Test 11/12/16 12:03
[2016-11-12 13:12] LABS: MANUAL MICROSCOPIC REQUIRED? YES; URINE APPEARANCE TURBID (CLEAR); URINE BILIRUBIN NEG (NEG); URINE COLOR RED; URINE NITRITE NEG (NEG); URINE SPECIFIC GRAVITY >= 1.030 (1.000-1.030); UROBILINOGEN NEG (NEG)
[2016-11-12 13:13] LABS: REVIEW REQ? NO
[2016-11-12 13:20] LABS: URINE BACTERIA 1+ (NEG); URINE MUCUS PRESENT (NONE PRSENT); URINE RBC >30 /hpf (0-4); URINE WBC >30 /hpf (0-5)
[2016-11-12 13:23] LABS: ZZURINE CULT IF INDIC CATH YES
[2016-11-12 13:35] LABS: ARTERIAL BLD GAS O2 SATURATION 95.9 % (90-95); ARTERIAL BLOOD GAS BASE EXCESS 5.9 mEq/L (-9-1.8); ARTERIAL BLOOD GAS HCO3 32 mmol/L (19-24); ARTERIAL BLOOD GAS PO2 89 mm/Hg (80-95); ARTERIAL BLOOD GAS pH 7.38 (7.35-7.45)
[2016-11-12 13:36] LABS: ALLEN TEST POS (POS); O2 ADMINISTRATION 4 L
[2016-11-12 14:05] LABS: BUN/CREATININE RATIO 44.9 (10-20); CREATININE 0.45 mg/dl (0.60-1.20); POTASSIUM 4.3 mmol/L (3.5-5.1)
[2016-11-12 17:03] LABS: BUN/CREATININE RATIO 38.1 (10-20); CALCIUM 8.9 mg/dl (8.5-10.1); CREATININE 0.52 mg/dl (0.60-1.20); POTASSIUM 4.1 mmol/L (3.5-5.1)
--- NOTE | 2016-11-12 19:26 | ECHOCARDIOGRAM REPORT ---
*NOTICE TO RECEIVING DEMOCRAT AGENCY This information is strictly Confidential and protected under [place] law. [place] law prohibits you from making any further disclosure of this information unless further disclosure is expressly permitted by the written consent of the person to whom it pertains or is authorized by law. A general authorization for the release of medical or other information is not sufficient for this purpose. Hospital accepts no responsibility if the information is made available to any other person, INCLUDING THE PATIENT. Interpretation Summary * Name: ÁNGELA ROPER Study Date: 11/11/2016 03:23 PM BP: 129/71 mmHg * Patient Location: .2T\S\S232\S\1 HR: 83 * : 1935 (M/d/yyyy) Gender: Female Height: 64 in * Age: 81 yrs Ethnicity: [place] Weight: 102 lb * Ordering Physician: Marychuy Machado * Referring Physician: Self, Referred * Performed By: Denis Roth RDCS * * Reason For Study: Respiratory distress * BSA: 1.5 m2 * Normal biventricular systolic function. * Left ventricular diastolic dysfunction. * Normal chamber dimensions. * Moderate aortic regurgitation. * Moderate mitral regurgitation. * Trace tricuspid and pulmonic regurgitation. * Moderately elevated estimated right ventricular systolic pressure. * Normal central venous pressure. * -- Conclusions -- * Aortic valve sclerosis mild, without significant aortic valvular stenosis. Procedure Details * A complete two-dimensional transthoracic echocardiogram was performed (2D, M-mode, Doppler and color flow Doppler). * The study was technically adequate. Left Ventricle * The left ventricle is normal in size. * There is normal left ventricular wall thickness. * A full diastolic examination was done with clinical findings of Class I diastolic dysfunction. * Left ventricular systolic function is normal. * Ejection Fraction = 60-65%. * The left ventricular wall motion is normal. Right Ventricle * The right ventricle is normal in size and function. Atria * The left atrial size is normal. * Right atrial size is normal. * No ASD detected; PFO is not assessed. Mitral Valve * The mitral valve is normal. * There is no mitral valve stenosis. * There is moderate mitral regurgitation. Tricuspid Valve * The tricuspid valve is not well visualized. * There is trace tricuspid regurgitation. * Right ventricular systolic pressure is elevated at 40-50mmHg. Aortic Valve * The aortic valve is trileaflet. * Aortic valve sclerosis mild, without significant aortic valvular stenosis. * Aortic stenosis is absent. * Moderate aortic regurgitation. Pulmonic Valve * The pulmonic valve is not well visualized. * The pulmonary valve is inadequately visualized, but the Doppler data is adequate for interpretation. * There is no pulmonic valvular stenosis. * Trace pulmonic valvular regurgitation. Great Vessels * The aortic root is normal size. Pericardium/Pleural * There is no pericardial effusion. Great Vessels * Normal inferior vena cava diameter and respiratory variation suggests normal central venous pressure. MMode 2D Measurements and Calculations IVSd 0.91 cm IVSs 1.2 cm LVIDd 4.4 cm LVIDs 3.1 cm LVPWd 0.95 cm LVPWs 1.2 cm IVS/LVPW 0.96 FS 30.7 % EDV(Teich) 89.7 ml ESV(Teich) 37.2 ml EF(Teich) 58.5 % EDV(cubed) 87.7 ml ESV(cubed) 29.1 ml EF(cubed) 66.8 % % IVS thick 26.8 % % LVPW thick 23.9 % LV mass(C)d 136.3 grams LV mass(C)dI 92.8 grams/m\S\2 LV mass(C)s 108.3 grams LV mass(C)sI 73.7 grams/m\S\2 SV(Teich) 52.4 ml SI(Teich) 35.7 ml/m\S\2 SV(cubed) 58.5 ml SI(cubed) 39.8 ml/m\S\2 Ao root diam 3.4 cm Ao root area 9.2 cm\S\2 ACS 1.9 cm LA dimension 2.4 cm asc Aorta Diam 3.3 cm LA/Ao 0.70 LVOT diam 2.1 cm LVOT area 3.6 cm\S\2 LVAd ap4 21.0 cm\S\2 LVLd ap4 6.9 cm EDV(MOD-sp4) 53.0 ml LVAs ap4 11.0 cm\S\2 LVLs ap4 6.1 cm ESV(MOD-sp4) 17.0 ml EF(MOD-sp4) 67.9 % LVAd ap2 24.0 cm\S\2 LVLd ap2 7.4 cm EDV(MOD-sp2) 66.0 ml LVAs ap2 12.3 cm\S\2 LVLs ap2 5.8 cm ESV(MOD-sp2) 22.0 ml EF(MOD-sp2) 66.7 % SV(MOD-sp4) 36.0 ml SI(MOD-sp4) 24.5 ml/m\S\2 SV(MOD-sp2) 44.0 ml SI(MOD-sp2) 29.9 ml/m\S\2 Doppler Measurements and Calculations MV E max willis 54.8 cm/sec MV A max willis 100.8 cm/sec MV E/A 0.54 MV dec time 0.16 sec Ao V2 max 130.3 cm/sec Ao max PG 6.8 mmHg Ao max PG (full) 3.6 mmHg BIGG(V,A) 2.4 cm\S\2 BIGG(V,D) 2.4 cm\S\2 AI max willis 489.5 cm/sec AI max PG 95.9 mmHg AI dec slope 242.5 cm/sec\S\2 AI P1/2t 591.2 msec LV V1 max PG 3.2 mmHg LV V1 max 89.1 cm/sec PA V2 max 85.3 cm/sec PA max PG 2.9 mmHg PA acc slope 881.2 cm/sec\S\2 PA acc time 0.10 sec TR max willis 319.1 cm/sec PA pr(Accel) 34.6 mmHg
[2016-11-12] MEDS ORDERED: LEVOFLOXACIN / D5W 750 MG in PREMIXED IN D5W 150 ML IV SCH (20:00)
[2016-11-12] MEDS: NADOLOL 40 MG TAB PO SCH (20:52)
[2016-11-12] MEDS: ATORVASTATIN 20 MG TAB PO SCH (20:52)
[2016-11-12 21:24] LABS: HEMATOCRIT 31.9 % (37-47)
[2016-11-12 21:53] LABS: BUN/CREATININE RATIO 39.2 (10-20); CALCIUM 8.8 mg/dl (8.5-10.1); CREATININE 0.48 mg/dl (0.60-1.20)
[2016-11-13] VITALS (17 sets, daily range): BP systolic 109–196; BP diastolic 65–78; PULSE 70–84; TEMP 36.4–37.3; O2SAT 90–98
[2016-11-13] MEDS: METHYLPREDNISOLONE IV 40 MG in SYRINGE 0 ML IV SCH ×3 (00:54→18:38)
[2016-11-13 04:49] LABS: BUN/CREATININE RATIO 40.3 (10-20); CALCIUM 8.6 mg/dl (8.5-10.1); CREATININE 0.43 mg/dl (0.60-1.20); POTASSIUM 3.9 mmol/L (3.5-5.1)
[2016-11-13 04:50] LABS: PARTIAL THROMBOPLASTIN RATIO 3.4
[2016-11-13] MEDS: LEVOTHYROXINE 175 MCG TAB PO SCH (06:18)
[2016-11-13] MEDS: ALBUT/IPRATROP 3MG/0.5MG NEB 3 ML VIAL INH SCH ×4 (07:04→19:25)
[2016-11-13] MEDS: FORMOTEROL FUMA NEBULIZER SOLN 20 MCG/2 ML VIAL INH SCH ×2 (07:07→19:25)
[2016-11-13] MEDS: BOOST VANILLA PO SCH ×6 (07:30→16:02)
[2016-11-13] MEDS: MAGNESIUM OXIDE 400 MG TAB PO SCH ×2 (08:59→20:47)
[2016-11-13] MEDS: PANTOprazole SOD 40 MG TAB PO SCH (09:00)
[2016-11-13] MEDS: ACETAMINOPHEN 325 MG TAB PO SCH ×2 (09:00→20:48)
[2016-11-13] MEDS: DOCUSATE SODIUM 100 MG CAP PO SCH ×2 (09:00→20:45)
[2016-11-13] MEDS: CALCIUM CARBONATE 500 MG CHEWABLE PO SCH ×2 (09:00→20:47)
[2016-11-13] MEDS: TIOTROPIUM BROMIDE 5 PUFF/90 MCG INH INH SCH (09:02)
--- NOTE | 2016-11-13 09:23 | Pulmonology Progress Note ---
Pulmonary Progress Note Date of Service Nov 13, 2016. Attending Dr. Marquez Subjective The patient had BiPAP on from yesterday afternoon up until when I went into the patient's room. We removed the BiPAP before this encounter. The patient is definitively more awake and alert today. Her speech was not garbled like yesterday. She was much more oriented. Nursing staff was able to suction out some secretions from the back of her throat with the patient's assistance. She remains somewhat short of breath and congested. Objective The patient is alert. She was cooperative. She was oriented. She was uncertain of the exact date but she noted was November. She seems stronger than yesterday. The BiPAP was removed just prior to my evaluation. Temperature is 36.8. Mouth exam shows a film of debris on her teeth. There was no evidence for candidiasis. The heart rate was 77 beats per minute. Rhythm was regular. Lung panda continue to reveal diffuse rhonchi bilaterally. Her respiratory rate was 20 breaths per minute. The abdomen was soft and nontender. Bowel sounds were normal. Extremities showed no edema. Echocardiogram showed a normal LV function. There was diastolic dysfunction. Moderate aortic regurg was noted. Electrolytes today show sodium 127 potassium 3.9 chloride 91 and bicarbonate 30. BUN was 17 with a creatinine of 0.43. Arterial blood gas done yesterday afternoon showed a pH of 7.38 with a PCO2 of 55 and a PO2 of 89 on 4 L. This reflects a compensated respiratory acidosis. Assessment & Plan Impressions: 1 acute pulmonary embolism 2 deep vein thrombosis involving the superficial femoral and popliteal on the right 3 fluid filled esophagus-worrisome for aspiration-uncertain etiology 4 diffuse rhonchi suggesting retained secretions 5 COPD exacerbation with emphysema reported on CAT scan 6 history of M AC infection Comments and recommendations: The patient is clinically improved after wearing BiPAP. I suspect her secretions are a little higher because nursing was able to suction some out today. I believe we need to continue the BiPAP intermittently during the day and then have her wear it again at night. In light of the fact she has an elevated carbon dioxide level she is not an ideal candidate to do bronchoscopy. Dr. Willson's note read regarding the abnormal findings on cystoscopy as an outpatient. Continued anticoagulation may be difficult. As he had noted may need to give consideration to an IVC filter. Data Medications: Current Inpatient Medications Medications (Trade) Dose Ordered Sig/Theo Route Start Time Stop Time Status Last Admin Dose Admin Acetaminophen (Tylenol Tab) 650 mg BID PO 11/09/16 21:00 12/09/16 20:59 11/12/16 20:53 650 MG Atorvastatin Calcium (Lipitor Tab) 20 mg HS PO 11/09/16 21:00 12/09/16 20:59 11/12/16 20:52 20 MG Calcium Carbonate (Tums Chew Tab) 1,000 mg AMHS PO 11/09/16 21:00 12/09/16 20:59 11/12/16 20:53 1,000 MG Levothyroxine Sodium (Synthroid Tab) 175 mcg DAILYBB PO 11/10/16 06:00 12/10/16 06:59 11/13/16 06:18 175 MCG Loperamide HCl (Imodium Cap) 2 mg PRN PRN PO 11/09/16 13:45 12/09/16 13:44 Loratadine (Claritin Tab) 10 mg Q24H PRN PO 11/09/16 13:45 12/09/16 13:44 Magnesium Oxide (Mag-Ox Tab) 400 mg BID PO 11/09/16 21:00 12/09/16 20:59 11/12/16 20:53 400 MG Nadolol (Corgard Tab) 40 mg HS PO 11/09/16 21:00 12/09/16 20:59 11/12/16 20:52 40 MG Pantoprazole Sodium (Protonix Tab) 40 mg DAILY PO 11/10/16 09:00 12/10/16 08:59 11/11/16 07:46 40 MG Sumatriptan Succinate (Imitrex Tab) 50 mg DAILY PRN PO 11/09/16 13:45 12/09/16 13:44 Tiotropium [place] (Spiriva Handihaler Inhaler) 1 puff QAM INH 11/10/16 09:00 12/10/16 08:59 11/12/16 08:45 1 PUFF Methylprednisolone Sodium Succinate 40 mg/Syringe 0.64 ml @ 1.5 mls/min Q8H IV 11/09/16 16:30 12/09/16 13:59 11/13/16 00:54 1.5 MLS/MIN Formoterol Fumarate (Perforomist 20MCG/2ML Neb Soln) 20 mcg BIDR INH 11/09/16 20:00 12/09/16 19:59 11/12/16 20:00 20 MCG Albuterol/ Ipratropium (Duoneb) 3 ml QIDR INH 11/09/16 16:00 12/09/16 15:59 11/12/16 14:20 3 ML Albuterol/ Ipratropium (Duoneb) 3 ml Q2H PRN INH 11/09/16 13:45 12/09/16 13:44 Acetaminophen (Tylenol Tab) 650 mg Q4H PRN PO 11/09/16 14:15 12/09/16 14:14 Al Hydrox/Mg Hydrox/Simethicone (Maalox Max Susp) 15 ml Q4H PRN PO 11/09/16 14:15 12/09/16 14:14 Magnesium Hydroxide (Milk Of Magnesia Susp) 30 ml Q12H PRN PO 11/09/16 14:15 12/09/16 14:14 11/11/16 07:43 30 ML Ondansetron HCl (Zofran Inj) 4 mg Q6H PRN IV 11/09/16 14:15 12/09/16 14:14 11/11/16 17:03 4 MG Polyethylene (Miralax Powder Packet) 17 gm DAILY PRN PO 11/09/16 14:15 12/09/16 14:14 11/11/16 09:09 17 GM Rivaroxaban (Xarelto Tab) 15 mg BID PO 11/09/16 21:00 12/09/16 20:59 Future Hold 11/11/16 07:46 15 MG Alprazolam (Xanax Tab) 0.25 mg BID PRN PO 11/10/16 03:30 12/10/16 03:29 Future Hold 11/10/16 12:54 0.25 MG Acetaminophen/ Codeine Phosphate (Tylenol w/ Codeine #3 Tab) 1 tab QID PRN PO 11/10/16 16:00 12/10/16 15:59 Future Hold 11/10/16 21:14 1 TAB Docusate Sodium (coLACE CAP) 100 mg BID PO 11/11/16 21:00 12/11/16 20:59 11/12/16 20:52 100 MG Heparin Sodium/ Dextrose 500 ml @ 15 mls/hr Q24H PRN IV 11/11/16 17:00 12/11/16 16:59 11/11/16 17:01 17 MLS/HR Enteral Nutritional Formula (Boost) 1 can TIDM PO 11/12/16 11:30 12/12/16 11:29 Levofloxacin 750 mg/Prmx 150 ml @ 100 mls/hr Q24H IV 11/12/16 20:00 11/16/16 19:59 11/12/16 20:52 100 MLS/HR Vital Signs: Date Time Temp Pulse Resp B/P (MAP) Pulse Ox O2 Delivery O2 Flow Rate FiO2 11/13/16 07:46 36.8 77 16 151/65 (93) 98 BiPAP 4.0 11/13/16 07:08 77 94 11/13/16 07:07 77 18 94 BiPAP/CPAP 4.0 11/13/16 04:58 84 91 11/13/16 04:02 BiPAP 4.0 11/13/16 04:00 37.0 76 23 125/68 (87) 94 BiPAP 11/13/16 02:44 72 94 11/13/16 00:19 37.3 76 16 109/66 (80) 94 BiPAP 11/13/16 00:16 BiPAP 4.0 11/12/16 23:11 73 92 11/12/16 20:50 BiPAP 4.0 11/12/16 20:00 78 18 95 BiPAP/CPAP 4.0 11/12/16 20:00 85 94 11/12/16 19:33 36.6 73 22 130/77 (94) 95 BiPAP 11/12/16 16:00 Nasal Cannula 4.0 11/12/16 15:50 83 94 11/12/16 15:42 36.8 78 22 118/75 (89) 95 Nasal Cannula 4.0 11/12/16 14:21 82 20 93 Nasal Cannula 4.0 11/12/16 12:00 Nasal Cannula 4.0 11/12/16 11:38 36.6 85 28 124/74 (91) 99 Nasal Cannula 4.0 Laboratory Results: Last 24 Hours Test 11/12/16 09:17 11/12/16 12:30 11/12/16 13:14 11/12/16 16:10 Osmolality 266 mOsm/kg Urine Color RED Urine Appearance TURBID Urine pH 6.0 Urine Specific [place] >= 1.030 Urine Protein 2+ Urine Glucose (UA) NEG Urine Ketones NEG Urine Occult Blood 3+ Urine Nitrite NEG Urine Bilirubin NEG Urine Urobilinogen NEG Urine Leukocyte Esterase NEG Urine RBC >30 /hpf Urine WBC >30 /hpf Urine Epithelial Cells 5-10 /lpf Urine Bacteria 1+ Urine Mucus PRESENT Arterial Blood pH 7.38 Arterial Blood Partial Pressure CO2 55 mmHg Arterial Blood Partial Pressure O2 89 mm/Hg Arterial Blood HCO3 32 mmol/L Arterial Blood Oxygen Saturation 95.9 % Arterial Blood Base Excess 5.9 mEq/L Arterial Blood Gas Delivery 4 L Rohith Test POS Sodium Level 127 mmol/L 127 mmol/L Potassium Level 4.3 mmol/L 4.1 mmol/L Chloride Level 91 mmol/L 89 mmol/L Carbon Dioxide Level 30 mmol/L 30 mmol/L Anion Gap 6.0 mmol/L 8.0 mmol/L Blood Urea Nitrogen 20 mg/dl 20 mg/dl Creatinine 0.45 mg/dl 0.52 mg/dl Est Creatinine Clear Calc Drug Dose 73.8 ml/min 63.9 ml/min Estimated GFR () 109.7 104.6 Estimated GFR (Non- 94.6 90.2 BUN/Creatinine Ratio 44.9 38.1 Random Glucose 139 mg/dl 131 mg/dl Calcium Level 9.0 mg/dl 8.9 mg/dl Test 11/12/16 21:15 11/13/16 04:25 Hemoglobin 10.9 g/dL Hematocrit 31.9 % Sodium Level 127 mmol/L 127 mmol/L Potassium Level 4.0 mmol/L 3.9 mmol/L Chloride Level 90 mmol/L 91 mmol/L Carbon Dioxide Level 30 mmol/L 30 mmol/L Anion Gap 7.0 mmol/L 6.0 mmol/L Blood Urea Nitrogen 19 mg/dl 17 mg/dl Creatinine 0.48 mg/dl 0.43 mg/dl Est Creatinine Clear Calc Drug Dose 69.2 ml/min 77.3 ml/min Estimated GFR () 107.4 111.3 Estimated GFR (Non- 92.6 96.1 BUN/Creatinine Ratio 39.2 40.3 Random Glucose 127 mg/dl 117 mg/dl Calcium Level 8.8 mg/dl 8.6 mg/dl Activated Partial Thromboplast Time 88.6 SECONDS Partial Thromboplastin Ratio 3.4
--- NOTE | 2016-11-13 10:06 | Family Medicine Progress Note ---
Progress Note Date of Service Nov 13, 2016. Subjective Pt evaluation today including: conversation w/ family, physical exam, chart review, lab review, conversation w/ netsuite consultant, review of inpatient medication list Pain: None reported by nursing staff or family PO Intake: Concern for aspiration Voiding: lowe catheter in place Patient on BIPAP this AM, resting comfortably Spoke with family, she has improved quite a bit in terms of her altered mental status They state she is aware and talkative, an improvement from yesterday Additional Comments: Unable to assess due to AMS Medications Current Inpatient Medications Medications (Trade) Dose Ordered Sig/Theo Route Start Time Stop Time Status Last Admin Dose Admin Acetaminophen (Tylenol Tab) 650 mg BID PO 11/09/16 21:00 12/09/16 20:59 11/12/16 20:53 650 MG Atorvastatin Calcium (Lipitor Tab) 20 mg HS PO 11/09/16 21:00 12/09/16 20:59 11/12/16 20:52 20 MG Calcium Carbonate (Tums Chew Tab) 1,000 mg AMHS PO 11/09/16 21:00 12/09/16 20:59 11/12/16 20:53 1,000 MG Levothyroxine Sodium (Synthroid Tab) 175 mcg DAILYBB PO 11/10/16 06:00 12/10/16 06:59 11/13/16 06:18 175 MCG Loperamide HCl (Imodium Cap) 2 mg PRN PRN PO 11/09/16 13:45 12/09/16 13:44 Loratadine (Claritin Tab) 10 mg Q24H PRN PO 11/09/16 13:45 12/09/16 13:44 Magnesium Oxide (Mag-Ox Tab) 400 mg BID PO 11/09/16 21:00 12/09/16 20:59 11/13/16 08:59 400 MG Nadolol (Corgard Tab) 40 mg HS PO 11/09/16 21:00 12/09/16 20:59 11/12/16 20:52 40 MG Pantoprazole Sodium (Protonix Tab) 40 mg DAILY PO 11/10/16 09:00 12/10/16 08:59 11/13/16 09:00 40 MG Sumatriptan Succinate (Imitrex Tab) 50 mg DAILY PRN PO 11/09/16 13:45 12/09/16 13:44 Tiotropium [place] (Spiriva Handihaler Inhaler) 1 puff QAM INH 11/10/16 09:00 12/10/16 08:59 11/13/16 09:02 1 PUFF Methylprednisolone Sodium Succinate 40 mg/Syringe 0.64 ml @ 1.5 mls/min Q8H IV 11/09/16 16:30 12/09/16 13:59 11/13/16 09:01 1.5 MLS/MIN Formoterol Fumarate (Perforomist 20MCG/2ML Neb Soln) 20 mcg BIDR INH 11/09/16 20:00 12/09/16 19:59 11/12/16 20:00 20 MCG Albuterol/ Ipratropium (Duoneb) 3 ml QIDR INH 11/09/16 16:00 12/09/16 15:59 11/12/16 14:20 3 ML Albuterol/ Ipratropium (Duoneb) 3 ml Q2H PRN INH 11/09/16 13:45 12/09/16 13:44 Acetaminophen (Tylenol Tab) 650 mg Q4H PRN PO 11/09/16 14:15 12/09/16 14:14 Al Hydrox/Mg Hydrox/Simethicone (Maalox Max Susp) 15 ml Q4H PRN PO 11/09/16 14:15 12/09/16 14:14 Magnesium Hydroxide (Milk Of Magnesia Susp) 30 ml Q12H PRN PO 11/09/16 14:15 12/09/16 14:14 11/11/16 07:43 30 ML Ondansetron HCl (Zofran Inj) 4 mg Q6H PRN IV 11/09/16 14:15 12/09/16 14:14 11/11/16 17:03 4 MG Polyethylene (Miralax Powder Packet) 17 gm DAILY PRN PO 11/09/16 14:15 12/09/16 14:14 11/11/16 09:09 17 GM Rivaroxaban (Xarelto Tab) 15 mg BID PO 11/09/16 21:00 12/09/16 20:59 Future Hold 11/11/16 07:46 15 MG Alprazolam (Xanax Tab) 0.25 mg BID PRN PO 11/10/16 03:30 12/10/16 03:29 Future Hold 11/10/16 12:54 0.25 MG Acetaminophen/ Codeine Phosphate (Tylenol w/ Codeine #3 Tab) 1 tab QID PRN PO 11/10/16 16:00 12/10/16 15:59 Future Hold 11/10/16 21:14 1 TAB Docusate Sodium (coLACE CAP) 100 mg BID PO 11/11/16 21:00 12/11/16 20:59 11/13/16 09:00 100 MG Heparin Sodium/ Dextrose 500 ml @ 15 mls/hr Q24H PRN IV 11/11/16 17:00 12/11/16 16:59 11/11/16 17:01 17 MLS/HR Enteral Nutritional Formula (Boost) 1 can TIDM PO 11/12/16 11:30 12/12/16 11:29 Levofloxacin 750 mg/Prmx 150 ml @ 100 mls/hr Q24H IV 11/12/16 20:00 11/16/16 19:59 11/12/16 20:52 100 MLS/HR Objective Vital Signs Date Time Temp Pulse Resp B/P (MAP) Pulse Ox O2 Delivery O2 Flow Rate FiO2 11/13/16 07:46 36.8 77 16 151/65 (93) 98 BiPAP 4.0 11/13/16 07:08 77 94 11/13/16 07:07 77 18 94 BiPAP/CPAP 4.0 11/13/16 04:58 84 91 11/13/16 04:02 BiPAP 4.0 11/13/16 04:00 37.0 76 23 125/68 (87) 94 BiPAP 11/13/16 02:44 72 94 11/13/16 00:19 37.3 76 16 109/66 (80) 94 BiPAP 11/13/16 00:16 BiPAP 4.0 11/12/16 23:11 73 92 11/12/16 20:50 BiPAP 4.0 11/12/16 20:00 78 18 95 BiPAP/CPAP 4.0 11/12/16 20:00 85 94 11/12/16 19:33 36.6 73 22 130/77 (94) 95 BiPAP 11/12/16 16:00 Nasal Cannula 4.0 11/12/16 15:50 83 94 11/12/16 15:42 36.8 78 22 118/75 (89) 95 Nasal Cannula 4.0 11/12/16 14:21 82 20 93 Nasal Cannula 4.0 11/12/16 12:00 Nasal Cannula 4.0 11/12/16 11:38 36.6 85 28 124/74 (91) 99 Nasal Cannula 4.0 Physical Exam General Appearance: no apparent distress Eyes: normal inspection, sclerae normal, + pertinent finding (unable to assess ; patient resting on exam) ENT: hearing grossly normal Neck: trachea midline Respiratory/Chest: chest non-tender, no accessory muscle use, + respiratory distress, + rhonchi (improved from yesterday but still present and diffuse) Cardiovascular: regular rate, rhythm, no edema, no murmur Abdomen: normal bowel sounds, non tender, soft Extremities: + pertinent finding (remains contracted) Neurologic/Psychiatric: + disoriented Skin: warm/dry, no rash Laboratory Results 11/12/16 21:15 11/13/16 04:25 Test 11/12/16 12:30 11/12/16 13:14 11/13/16 04:25 Urine Color RED Urine Appearance TURBID (CLEAR) Urine pH 6.0 (4.5-7.5) Urine Specific [place] >= 1.030 (1.000-1.030) Urine Protein 2+ (NEG) Urine Glucose (UA) NEG (NEG) Urine Ketones NEG (NEG) Urine Occult Blood 3+ (NEG) Urine Nitrite NEG (NEG) Urine Bilirubin NEG (NEG) Urine Urobilinogen NEG (NEG) Urine Leukocyte Esterase NEG (NEG) Urine RBC >30 /hpf (0-4) Urine WBC >30 /hpf (0-5) Urine Epithelial Cells 5-10 /lpf (0-5) Urine Bacteria 1+ (NEG) Urine Mucus PRESENT (NONE PRSENT) Arterial Blood pH 7.38 (7.35-7.45) Arterial Blood Partial Pressure CO2 55 mmHg (35-46) Arterial Blood Partial Pressure O2 89 mm/Hg (80-95) Arterial Blood HCO3 32 mmol/L (19-24) Arterial Blood Oxygen Saturation 95.9 % (90-95) Arterial Blood Base Excess 5.9 mEq/L (-9-1.8) Arterial Blood Gas Delivery 4 L Rohith Test POS (POS) Activated Partial Thromboplast Time 88.6 SECONDS (21.0-31.0) Partial Thromboplastin Ratio 3.4 Anion Gap 6.0 mmol/L (3-11) Est Creatinine Clear Calc Drug Dose 77.3 ml/min Estimated GFR () 111.3 Estimated GFR (Non- 96.1 BUN/Creatinine Ratio 40.3 (10-20) Calcium Level 8.6 mg/dl (8.5-10.1) Assessment and Plan 81 yo female being treated for acute COPD exacerbation, acute hypoxic respiratory failure, altered mental status, hyponatremia, and hematuria. Acute COPD exacerbation Diffuse rhonchi still present, although improved from yesterday Completed 5 days of IV levaquin Acute respiratory failure Remains on Bipap and is tolerating well. 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 Kell Diaz during the history and exam. I discussed the case with the resident and agree with the findings and plan as documented in the note. Any exceptions or clarifications are listed here: patient with RLE DVT and PEs. During bedside rounds patient awake, alert, and talkative. Family pleased with her improvement. Tolerated BIPAP all last pm. Tele normal overnight. Pt with poor coughing ability. VSS, no fever gen - thin, looks markedly better neck - JVD present mouth - MMM, no thrush heart - RRR lungs - very course BS b/l, some rhonchi, no increased WOB today abd - soft, ND, BS+ ext - right leg is larger than left leg, pulses 2+ b/l, 1+ edema right ankle urine in lowe bag has cleared; no longer hematuria labs - Na 127 urine cx with e. coli A/P: 1. acute hypoxic/hypercarbic respiratory failure. 2. suspected aspiration pneumonia. 3. COPD with exacerbation - improving albeit slowly. 4. metabolic encephalopathy - improved. 5. hyponatremia - suspect SIADH. Review of EMR shows low or low-normal Na for years. 6. acute RLE DVT with PEs. 7. gross hematuria. 8. h/o recurrent UTIs. 9. recent cystoscopy in outpatient urology clinic - per Dr. Moreno's note there was large area of erythema on bladder wall, unknown etiology. Although SIADH still suspected, she has had next to no oral intake and very little IV intake either. Reasonable to give 500cc total of NS today and follow her BMPs carefully. check uric acid in am; if very low her chronic Na issue is likely chronic SIADH. reasonable to consult vascular for consideration of IVC filter, especially if hematuria recurs or persists. cont heparin cautiously in meantime along with serial cbc. e. coli UTI - developed this ON levaquin making MDR e. coli a possibility. Thus , change to ertapenem and follow cx. mental status improved. /son updated at bedside. Documented By: Asim Diallo MD Resident Tracking Resident Involvement: Resident Care Provided Care Provided: Adult Hospital Medicine
[2016-11-13 11:30] LABS: PARTIAL THROMBOPLASTIN RATIO 2.5
[2016-11-13] MEDS ORDERED: SODIUM CHLORIDE 0.9% 500ML 500 ML IV SCH (13:00)
[2016-11-13] MEDS ORDERED: GUAIFENESIN SUGAR FREE 100 MG/5 ML UDC PO STA (15:57)
[2016-11-13] MEDS ORDERED: GUAIFENESIN SUGAR FREE 100 MG/5 ML UDC PO PRN (16:00)
[2016-11-13] MEDS: ERTAPENEM IV 1 GM in SODIUM CHLOR 0.9% AD-VAN 50ML 50 ML IV SCH (16:01)
[2016-11-13 18:25] LABS: HEMATOCRIT 30.3 % (37-47)
[2016-11-13 18:46] LABS: BUN/CREATININE RATIO 40.1 (10-20); CALCIUM 8.2 mg/dl (8.5-10.1); CREATININE 0.4 mg/dl (0.60-1.20); POTASSIUM 3.5 mmol/L (3.5-5.1)
[2016-11-13] MEDS: NADOLOL 40 MG TAB PO SCH (20:46)
[2016-11-13] MEDS: ATORVASTATIN 20 MG TAB PO SCH (20:47)
[2016-11-13] MEDS: SUMATRIPTAN SUCCINATE 50 MG TAB PO PRN (20:50)
[2016-11-14] VITALS (15 sets, daily range): BP systolic 99–156; BP diastolic 62–83; PULSE 66–81; TEMP 36.2–36.7; O2SAT 90–100
[2016-11-14] MEDS: METHYLPREDNISOLONE IV 40 MG in SYRINGE 0 ML IV SCH ×3 (00:13→19:33)
[2016-11-14 04:53] LABS: HEMATOCRIT 32.7 % (37-47); MEAN CELL VOLUME 94.2 fL (80-100); MEAN CORPUSCULAR HEMOGLOBIN 32.6 pg (25-34); MEAN CORPUSCULAR HGB CONC 34.6 g/dl (32-36); MEAN PLATELET VOLUME 9.3 fL (7.4-10.4); PLATELET COUNT 180 K/uL (130-400); RED BLOOD COUNT 3.47 M/uL (4.2-5.4); WHITE BLOOD COUNT 6.44 K/uL (4.8-10.8)
[2016-11-14 05:09] LABS: PARTIAL THROMBOPLASTIN RATIO 2.4
[2016-11-14 05:10] LABS: BUN/CREATININE RATIO 39.1 (10-20); CALCIUM 8.7 mg/dl (8.5-10.1); CREATININE 0.36 mg/dl (0.60-1.20); POTASSIUM 3.6 mmol/L (3.5-5.1); URIC ACID 1.9 mg/dl (2.6-7.2)
[2016-11-14] MEDS: HEPARIN 25,000 UNIT/500ML D5W 500 ML IV PRN (05:42)
[2016-11-14] MEDS: LEVOTHYROXINE 175 MCG TAB PO SCH (05:49)
[2016-11-14] MEDS: FORMOTEROL FUMA NEBULIZER SOLN 20 MCG/2 ML VIAL INH SCH ×2 (07:34→19:56)
[2016-11-14] MEDS: ALBUT/IPRATROP 3MG/0.5MG NEB 3 ML VIAL INH SCH ×3 (07:34→19:56)
[2016-11-14] MEDS: BOOST VANILLA PO SCH ×4 (08:39→11:30)
[2016-11-14] MEDS: PANTOprazole SOD 40 MG TAB PO SCH (10:30)
[2016-11-14] MEDS: CALCIUM CARBONATE 500 MG CHEWABLE PO SCH ×2 (10:30→21:00)
[2016-11-14] MEDS: ACETAMINOPHEN 325 MG TAB PO SCH ×2 (10:30→21:01)
[2016-11-14] MEDS: DOCUSATE SODIUM 100 MG CAP PO SCH ×2 (10:30→20:58)
[2016-11-14] MEDS: TIOTROPIUM BROMIDE 5 PUFF/90 MCG INH INH SCH (10:30)
[2016-11-14] MEDS: MAGNESIUM OXIDE 400 MG TAB PO SCH ×2 (10:30→20:59)
--- NOTE | 2016-11-14 13:00 | Surgery Consultation ---
Consultation Date of Service Nov 14, 2016. Chief Complaint DVT, PE and hematuria History of Present Illness The patient is a 81 year old female who has a DVT and PE. She since has developed hematuria on anticoagulation. She has a history of chronic persistent asthma, previous history of immunoglobulin deficiency. CTA showed PE present. Ultrasound showed a right lower extremity DVT. Vitals Vital Signs Past 12 Hours Date Time Temp Pulse Resp B/P (MAP) Pulse Ox O2 Delivery O2 Flow Rate FiO2 11/14/16 12:00 Nasal Cannula 5.0 11/14/16 11:49 36.2 74 24 146/74 (98) 99 BiPAP 3.0 74 11/14/16 08:09 36.2 76 24 147/79 (101) 96 BiPAP 96.0 76 11/14/16 08:00 96 BiPAP 4.0 11/14/16 07:33 73 16 95 BiPAP/CPAP 4.0 11/14/16 05:09 66 95 3.0 11/14/16 04:00 91 BiPAP 4.0 11/14/16 03:56 36.6 73 21 151/75 (100) 91 BiPAP 11/14/16 02:43 73 92 3.0 Allergies Coded Allergies: Celecoxib (Verified Allergy, Intermediate, RASH, 11/09/16) Penicillins (Verified Allergy, Intermediate, MOUTH SWELLING/RASH, 11/09/16) Cephalosporins (Verified Allergy, Unknown, HIVES, 11/09/16) Sulfa Antibiotics (Verified Allergy, Unknown, DIFFICULTY AMBULATING, ) Arformoterol (Verified Adverse Reaction, Intermediate, SHAKINESS, FEELS HYPER, 11/09/16) 'SHAKINESS, HYPERNESS' Clarithromycin (Verified Adverse Reaction, Intermediate, DIARRHEA, 11/09/16 ) DIARRHEA Lorazepam (Verified Adverse Reaction, Intermediate, hallucinations, ) Oxycodone (Verified Adverse Reaction, Intermediate, hallucinations, ) Home Medications Scheduled Acetaminophen Tab (Tylenol), 650 MG PO BID Atorvastatin (Lipitor), 20 MG PO HS Calcium Carbonate (Tums), 1,000 MG PO AMHS Cyanocobalamin (Cyanocobalamin), 1,000 MCG IM WK Fluticasone Prop/Salmeterol (Advair Diskus 500-50 Mcg/Dose), 1 PUFF INH AMHS Shabuobq-Iyndztramkod-Smufhedh (Artificial Tears), 1 DROP OPB Q2H Levothyroxine Sodium (Levothyroxine Sodium), 175 MCG PO QAM Magnesium Oxide (Magnesium-Oxide), 400 MG PO BID Mometasone Furoate (Nasal) (Mometasone Furoate), 2 SPRAYS MIRTHA QAM Multiple Vitamins W/ Minerals (Centrum Silver Adult 50+), 1 TAB PO QAM Nadolol (Nadolol), 40 MG PO HS Pantoprazole (Protonix), 40 MG PO DAILY Sumatriptan Succinate (Imitrex), 50 MG PO PRN Tiotropium [place] (Spiriva Handihaler), 1 CAP INH QAM Scheduled PRN Albuterol Hfa (Ventolin Hfa), 2 PUFFS INH Q6H PRN for Shortness of Breath Albuterol Sulf (Albuterol Sulfate), 1 VIAL NEB Q4 PRN for Shortness of Breath Bxvicqunls-Rrjdrqeaaydar-Bieal (Fioricet), 1 TAB PO Q12H PRN for N Loperamide Hcl (Imodium), 2 MG PO UD PRN for RN Loratadine (Claritin), 10 MG PO Q24H PRN for ALLERGIC REACTION Problem List Medical Problems: (1) Acute respiratory failure (2) Arthritis (3) Asthma (4) Back pain (5) CAD (coronary artery disease) (6) Fall (7) GERD (gastroesophageal reflux disease) (8) Hypothyroid (9) Hypoxia (10) Inferior pubic ramus fracture (11) Lumbar compression fracture (12) Sacral fracture (13) Sacral fracture, closed Surgical Problems: (1) H/O thyroidectomy (2) History of appendectomy (3) History of bilateral knee replacement (4) History of tonsillectomy and adenoidectomy (5) Hx of bilateral cataract extraction Surgical / Medical History Hx Cardiac Surgery: No Hx Abdominal Surgery: Yes (appendectomy as teenager ) Hx Cancer Surgery: No Hx Thoracic Surgery: No Hx Orthopedic: Yes (BILAT TKA) Hx Urinary Tract Surgery: No HX Other Surgery: Yes (thyroid removed, T & A, bilateral cataracts) Past Medical/Surgical History: Asthma, Heart Disease Family History Patient reports no known family medical history. Social History Smoking Status: Former Smoker Hx Tobacco Use In Past Year?: No (QUIT 33 YRS AGO) Hx Alcohol Use - Type & Amnt: Yes (occasionally) Hx Substance Use -Type & Amnt: No Review of Systems ENMT: No dental pain, No loss of hearing, No epistaxis, No ear discharge, No ear pain, No gum swelling, No mouth pain, No mouth swelling, No nasal congestion , No nasal pain, No rhinorrhea, No stridor, No tinnitus, No sore throat, No throat swelling, No problem reported Respiratory: + short of breath Gastrointestinal: No abdominal pain, No constipation, No diarrhea, No nausea, No vomiting, No anorexia, No appetite changes, No belching, No flatulence, No food intolerance, No hematemesis, No hemorrhoids, No hematochezia, No stool changes, No heartburn, No indigestion, No dysphagia, No rectal bleeding, No problem reported Genitourinary - Female: + hematuria Musculoskeletal: + back pain Neurologic: No dizziness, No weakness, No headache, No lethargy, No numbness, No paresthesia, No pre-existing deficit, No seizures, No tics, No tingling, No tremors, No vertigo, No memory loss, No LOC, No problem reported Psychiatric: + anxiety Physical Exam Constitutional: General Apperance: cachectic Level of Distress: mild distress Ambulation: limited ambulation Psychiatric: Mental Status: active & alert, normal mood, normal affect Orientation: to person Neck: supple Lungs: Auscultation: breath sounds normal Cardiovascular: Heart Auscultation: RRR Peripheral Pulses: Radial Pulse: normal on the left, normal on the right Femoral Pulse: normal on the left, normal on the right Abdomen: Inspection & Palpation: soft Musculoskeletal: abnormal strength Extremities: Upper Right: no cyanosis, no edema, no varicosities, no palpable cord, no clubbing, no ulcers, no mottling Upper Left: no cyanosis, no edema, no palpable cord, no clubbing, no ulcers , no mottling Lower Right: edema Lower Left: no cyanosis, no edema, no varicosities, no palpable cord, no clubbing, no ulcers, no mottling Neurologic: Cranial Nerves: grossly intact Sensation: grossly intact Assessment and Plan Imp: DVT and PE Hematuria Plan: Would recommend insertion of cava filter due to the hematuria and the need for anticoag for her DVT of the right leg. I have discussed the risks options and benefits of the procedure with the patient and her . The patient and her understand the risks options and benefits and agrees to the procedure.
--- NOTE | 2016-11-14 13:08 | Pulmonology Progress Note ---
Pulmonary Progress Note Date of Service Nov 14, 2016. Attending Dr Jimmy Mckeon The patient is evaluated with Po ALBARRAN with the patient's verbal consent. She reports that she is feeling a little worse today. She feels more congested. She states that she is having more mucus. Nursing staff reports that she is having more difficulty today and she had just gotten off of the BiPap prior to me entering the room. She is still coughing and congested. She is still requiring suction by nursing to help get the mucus out. She is feeling a little short of breath but not too bad. She is not having any pleuritic chest pain. She has been wheezing. She has been using the vibration vest and the flutter valve. She denies any chest pain or pressure. She has not had any palpations that she is aware of. She has not had any GI complaints. Her reports that she is not eating much at this time. The patient was encouraged to try to eat to maintain her strength. She has not had any nausea or vomiting. She just does not feel like eating. She has not had any problems with indigestion or heartburn. She has not had any bowel changes that she is aware of. She does have a catheter in and her urine is red at this time. Nursing reports that it was worse yesterday and Saturday. She is not having any difficulty with increased swelling or pain in her extremities. She does have a vascular surgery consult placed for possible IVC filter. Objective The patient is alert. She was cooperative. She was oriented. She can complete sentences without difficulty. She does not appear in any acute respiratory distress. She does have a harsh moist sounding cough. VS as per below . Neck: Supple. No mass, adenopathy, or bruit. She has limited range of motion due to known arthritis and has some tenderness to palpation over the posterior left side of the neck. There is no abnormality to palpation. Chest: Diffuse rhonchi bilaterally. No appreciated wheezes or rales. Fair air movement. CV: RRR. Abdomen: Soft and nontender. Bowel sounds were normal. No guarding, rigidity , or organomegaly Extremities showed no edema. Assessment & Plan Impressions: 1 acute pulmonary embolism 2 deep vein thrombosis involving the superficial femoral and popliteal on the right 3 fluid filled esophagus-worrisome for aspiration-uncertain etiology 4 diffuse rhonchi suggesting retained secretions 5 COPD exacerbation with emphysema reported on CAT scan 6 history of M AC infection Comments and recommendations: The patient is evaluated today and is a little worse based on Dr Marquez's note from yesterday as well as the nurses assesment. I feel that we need to continue the BiPAP intermittently during the day and then have her wear it again at night. Although she is not an ideal candidate for bronchoscopy, we may need to consider this to help clear the secretions. At this point, I will discuss further plan with Dr Marquez. We are awaiting vascular surgery evaluation for possible IVC filter. We will continue to follow through hospitalization. Data Medications: Current Inpatient Medications Medications (Trade) Dose Ordered Sig/Theo Route Start Time Stop Time Status Last Admin Dose Admin Acetaminophen (Tylenol Tab) 650 mg BID PO 11/09/16 21:00 12/09/16 20:59 11/13/16 20:48 650 MG Atorvastatin Calcium (Lipitor Tab) 20 mg HS PO 11/09/16 21:00 12/09/16 20:59 11/13/16 20:47 20 MG Calcium Carbonate (Tums Chew Tab) 1,000 mg AMHS PO 11/09/16 21:00 12/09/16 20:59 11/13/16 20:47 1,000 MG Levothyroxine Sodium (Synthroid Tab) 175 mcg DAILYBB PO 11/10/16 06:00 12/10/16 06:59 11/14/16 05:49 175 MCG Loperamide HCl (Imodium Cap) 2 mg PRN PRN PO 11/09/16 13:45 12/09/16 13:44 Loratadine (Claritin Tab) 10 mg Q24H PRN PO 11/09/16 13:45 12/09/16 13:44 Magnesium Oxide (Mag-Ox Tab) 400 mg BID PO 11/09/16 21:00 12/09/16 20:59 11/13/16 20:47 400 MG Nadolol (Corgard Tab) 40 mg HS PO 11/09/16 21:00 12/09/16 20:59 11/13/16 20:46 40 MG Pantoprazole Sodium (Protonix Tab) 40 mg DAILY PO 11/10/16 09:00 12/10/16 08:59 11/13/16 09:00 40 MG Sumatriptan Succinate (Imitrex Tab) 50 mg DAILY PRN PO 11/09/16 13:45 12/09/16 13:44 11/13/16 20:50 50 MG Tiotropium [place] (Spiriva Handihaler Inhaler) 1 puff QAM INH 11/10/16 09:00 12/10/16 08:59 11/13/16 09:02 1 PUFF Methylprednisolone Sodium Succinate 40 mg/Syringe 0.64 ml @ 1.5 mls/min Q8H IV 11/09/16 16:30 12/09/16 13:59 11/14/16 08:42 1.5 MLS/MIN Formoterol Fumarate (Perforomist 20MCG/2ML Neb Soln) 20 mcg BIDR INH 11/09/16 20:00 12/09/16 19:59 11/14/16 07:34 20 MCG Albuterol/ Ipratropium (Duoneb) 3 ml QIDR INH 11/09/16 16:00 12/09/16 15:59 11/13/16 19:25 3 ML Albuterol/ Ipratropium (Duoneb) 3 ml Q2H PRN INH 11/09/16 13:45 12/09/16 13:44 Acetaminophen (Tylenol Tab) 650 mg Q4H PRN PO 11/09/16 14:15 12/09/16 14:14 Al Hydrox/Mg Hydrox/Simethicone (Maalox Max Susp) 15 ml Q4H PRN PO 11/09/16 14:15 12/09/16 14:14 Magnesium Hydroxide (Milk Of Magnesia Susp) 30 ml Q12H PRN PO 11/09/16 14:15 12/09/16 14:14 11/11/16 07:43 30 ML Ondansetron HCl (Zofran Inj) 4 mg Q6H PRN IV 11/09/16 14:15 12/09/16 14:14 11/11/16 17:03 4 MG Polyethylene (Miralax Powder Packet) 17 gm DAILY PRN PO 11/09/16 14:15 12/09/16 14:14 11/11/16 09:09 17 GM Rivaroxaban (Xarelto Tab) 15 mg BID PO 11/09/16 21:00 12/09/16 20:59 Future Hold 11/11/16 07:46 15 MG Alprazolam (Xanax Tab) 0.25 mg BID PRN PO 11/10/16 03:30 12/10/16 03:29 Future Hold 11/10/16 12:54 0.25 MG Acetaminophen/ Codeine Phosphate (Tylenol w/ Codeine #3 Tab) 1 tab QID PRN PO 11/10/16 16:00 12/10/16 15:59 Future Hold 11/10/16 21:14 1 TAB Docusate Sodium (coLACE CAP) 100 mg BID PO 11/11/16 21:00 12/11/16 20:59 11/13/16 20:45 100 MG Heparin Sodium/ Dextrose 500 ml @ 15 mls/hr Q24H PRN IV 11/11/16 17:00 12/11/16 16:59 11/14/16 05:42 15 MLS/HR Enteral Nutritional Formula (Boost) 1 can TIDM PO 11/12/16 11:30 12/12/16 11:29 Ertapenem 1 gm/ Sodium Chloride 50 ml @ 120 mls/hr DAILY@1400 IV 11/13/16 15:00 11/23/16 13:59 11/13/16 16:01 120 MLS/HR Guaifenesin (Robitussin Sugar Free Syrup) 100 mg Q6H PRN PO 11/13/16 16:00 12/13/16 15:59 Vital Signs: Date Time Temp Pulse Resp B/P (MAP) Pulse Ox O2 Delivery O2 Flow Rate FiO2 11/14/16 12:00 Nasal Cannula 5.0 11/14/16 11:49 36.2 74 24 146/74 (98) 99 BiPAP 3.0 74 11/14/16 08:09 36.2 76 24 147/79 (101) 96 BiPAP 96.0 76 11/14/16 08:00 96 BiPAP 4.0 11/14/16 07:33 73 16 95 BiPAP/CPAP 4.0 11/14/16 05:09 66 95 3.0 11/14/16 04:00 91 BiPAP 4.0 11/14/16 03:56 36.6 73 21 151/75 (100) 91 BiPAP 11/14/16 02:43 73 92 3.0 11/14/16 00:01 90 BiPAP 4.0 11/13/16 23:56 36.7 70 19 196/72 (113) 90 BiPAP 11/13/16 20:00 98 Nasal Cannula 4.0 11/13/16 19:25 80 16 97 Nasal Cannula 4.0 11/13/16 19:20 36.4 78 21 147/74 (98) 98 Nasal Cannula 4.0 11/13/16 16:00 96 Nasal Cannula 4.0 11/13/16 15:25 36.5 76 20 139/78 (98) 96 Nasal Cannula 4.0 11/13/16 15:17 82 18 97 Nasal Cannula 4.0 Laboratory Results: Last 24 Hours Test 11/13/16 18:15 11/14/16 04:44 Hemoglobin 11.0 g/dL 11.3 g/dL Hematocrit 30.3 % 32.7 % Sodium Level 128 mmol/L 129 mmol/L Potassium Level 3.5 mmol/L 3.6 mmol/L Chloride Level 90 mmol/L 92 mmol/L Carbon Dioxide Level 34 mmol/L 32 mmol/L Anion Gap 4.0 mmol/L 5.0 mmol/L Blood Urea Nitrogen 16 mg/dl 14 mg/dl Creatinine 0.40 mg/dl 0.36 mg/dl Est Creatinine Clear Calc Drug Dose 84.6 ml/min 94.1 ml/min Estimated GFR () 114.0 118.0 Estimated GFR (Non- 98.4 101.8 BUN/Creatinine Ratio 40.1 39.1 Random Glucose 120 mg/dl 124 mg/dl Calcium Level 8.2 mg/dl 8.7 mg/dl White Blood Count 6.44 K/uL Red Blood Count 3.47 M/uL Mean Corpuscular Volume 94.2 fL Mean Corpuscular Hemoglobin 32.6 pg Mean Corpuscular Hemoglobin Concent 34.6 g/dl RDW Standard Deviation 40.4 fL RDW Coefficient of Variation 11.8 % Platelet Count 180 K/uL Mean Platelet Volume 9.3 fL Activated Partial Thromboplast Time 61.1 SECONDS Partial Thromboplastin Ratio 2.4 Uric Acid 1.9 mg/dl
--- NOTE | 2016-11-14 15:28 | Neurology Consultation ---
Neurology Consultation Date of Consultation: Nov 14, 2016. Attending Physician: Asim Diallo MD Primary Care Physician: Sb Patricio M.D. Reason for Consultation: microaspiration, neuropathy ? underlying disorder History of Present Illness Source: patient, spouse Eva is an 81-year-old female with history of chronic persistent asthma, previous history of immunoglobulin deficiency, presented to the hospital after a 4 day history of worsening shortness of breath. She was diagnosed with viral bronchitis given azithromycin and prednisone but has not improved. she was found to have DVT and PE. She also has blood in her urine. She is scheduled tomorrow to have a IVC filter placed. She also has advanced emphysema and lung nodules. She is seen in neurology by Dr Caballero sees her for gait instability She had a swallowing study for possible aspiration and was cleared for a regular diet. She states she has had chronic back pain for 2 years since she fell and fractured vertebra and sacrum with no surgery required. Her is in the room and states the primary doctor was concerned because of the swallowing issues and her peripheral neuropathy Past Medical/Surgical History Medical Problems: (1) Altered mental status Status: Acute (2) Ambulatory dysfunction Status: Acute (3) Asthmatic bronchitis Status: Acute (4) Intractable back pain Status: Acute (5) Near syncope Status: Acute Social History Smoking Status: Former smoker Drug Use: none Marital Status: Housing Status: lives with significant other Occupation Status: retired Allergies Coded Allergies: Celecoxib (Verified Allergy, Intermediate, RASH, 11/09/16) Penicillins (Verified Allergy, Intermediate, MOUTH SWELLING/RASH, 11/09/16) Cephalosporins (Verified Allergy, Unknown, HIVES, 11/09/16) Sulfa Antibiotics (Verified Allergy, Unknown, DIFFICULTY AMBULATING, ) Arformoterol (Verified Adverse Reaction, Intermediate, SHAKINESS, FEELS HYPER, 11/09/16) 'SHAKINESS, HYPERNESS' Clarithromycin (Verified Adverse Reaction, Intermediate, DIARRHEA, 11/09/16 ) DIARRHEA Lorazepam (Verified Adverse Reaction, Intermediate, hallucinations, ) Oxycodone (Verified Adverse Reaction, Intermediate, hallucinations, ) Current Inpatient Medications Current Inpatient Medications Medications (Trade) Dose Ordered Sig/Theo Route Start Time Stop Time Status Last Admin Dose Admin Acetaminophen (Tylenol Tab) 650 mg BID PO 11/09/16 21:00 12/09/16 20:59 11/13/16 20:48 650 MG Atorvastatin Calcium (Lipitor Tab) 20 mg HS PO 11/09/16 21:00 12/09/16 20:59 11/13/16 20:47 20 MG Calcium Carbonate (Tums Chew Tab) 1,000 mg AMHS PO 11/09/16 21:00 12/09/16 20:59 11/13/16 20:47 1,000 MG Levothyroxine Sodium (Synthroid Tab) 175 mcg DAILYBB PO 11/10/16 06:00 12/10/16 06:59 11/14/16 05:49 175 MCG Loperamide HCl (Imodium Cap) 2 mg PRN PRN PO 11/09/16 13:45 12/09/16 13:44 Loratadine (Claritin Tab) 10 mg Q24H PRN PO 11/09/16 13:45 12/09/16 13:44 Magnesium Oxide (Mag-Ox Tab) 400 mg BID PO 11/09/16 21:00 12/09/16 20:59 11/13/16 20:47 400 MG Nadolol (Corgard Tab) 40 mg HS PO 11/09/16 21:00 12/09/16 20:59 11/13/16 20:46 40 MG Pantoprazole Sodium (Protonix Tab) 40 mg DAILY PO 11/10/16 09:00 12/10/16 08:59 11/13/16 09:00 40 MG Sumatriptan Succinate (Imitrex Tab) 50 mg DAILY PRN PO 11/09/16 13:45 12/09/16 13:44 11/13/16 20:50 50 MG Tiotropium [place] (Spiriva Handihaler Inhaler) 1 puff QAM INH 11/10/16 09:00 12/10/16 08:59 11/13/16 09:02 1 PUFF Methylprednisolone Sodium Succinate 40 mg/Syringe 0.64 ml @ 1.5 mls/min Q8H IV 11/09/16 16:30 12/09/16 13:59 11/14/16 08:42 1.5 MLS/MIN Formoterol Fumarate (Perforomist 20MCG/2ML Neb Soln) 20 mcg BIDR INH 11/09/16 20:00 12/09/16 19:59 11/14/16 07:34 20 MCG Albuterol/ Ipratropium (Duoneb) 3 ml QIDR INH 11/09/16 16:00 12/09/16 15:59 11/13/16 19:25 3 ML Albuterol/ Ipratropium (Duoneb) 3 ml Q2H PRN INH 11/09/16 13:45 12/09/16 13:44 Acetaminophen (Tylenol Tab) 650 mg Q4H PRN PO 11/09/16 14:15 12/09/16 14:14 Al Hydrox/Mg Hydrox/Simethicone (Maalox Max Susp) 15 ml Q4H PRN PO 11/09/16 14:15 12/09/16 14:14 Magnesium Hydroxide (Milk Of Magnesia Susp) 30 ml Q12H PRN PO 11/09/16 14:15 12/09/16 14:14 11/11/16 07:43 30 ML Ondansetron HCl (Zofran Inj) 4 mg Q6H PRN IV 11/09/16 14:15 12/09/16 14:14 11/11/16 17:03 4 MG Polyethylene (Miralax Powder Packet) 17 gm DAILY PRN PO 11/09/16 14:15 12/09/16 14:14 11/11/16 09:09 17 GM Rivaroxaban (Xarelto Tab) 15 mg BID PO 11/09/16 21:00 12/09/16 20:59 Future Hold 11/11/16 07:46 15 MG Alprazolam (Xanax Tab) 0.25 mg BID PRN PO 11/10/16 03:30 12/10/16 03:29 Future Hold 11/10/16 12:54 0.25 MG Acetaminophen/ Codeine Phosphate (Tylenol w/ Codeine #3 Tab) 1 tab QID PRN PO 11/10/16 16:00 12/10/16 15:59 Future Hold 11/10/16 21:14 1 TAB Docusate Sodium (coLACE CAP) 100 mg BID PO 11/11/16 21:00 12/11/16 20:59 11/13/16 20:45 100 MG Heparin Sodium/ Dextrose 500 ml @ 15 mls/hr Q24H PRN IV 11/11/16 17:00 81/17 16:59 11/14/16 05:42 15 MLS/HR Enteral Nutritional Formula (Boost) 1 can TIDM PO 11/12/16 11:30 12/12/16 11:29 Ertapenem 1 gm/ Sodium Chloride 50 ml @ 120 mls/hr DAILY@1400 IV 11/13/16 15:00 11/23/16 13:59 11/13/16 16:01 120 MLS/HR Guaifenesin (Robitussin Sugar Free Syrup) 100 mg Q6H PRN PO 11/13/16 16:00 12/13/16 15:59 Physical Exam Vital Signs (Past 24 Hrs): Date Time Temp Pulse Resp B/P (MAP) Pulse Ox O2 Delivery O2 Flow Rate FiO2 11/14/16 12:00 Nasal Cannula 5.0 11/14/16 11:49 36.2 74 24 146/74 (98) 99 BiPAP 3.0 74 11/14/16 08:09 36.2 76 24 147/79 (101) 96 BiPAP 96.0 76 11/14/16 08:00 96 BiPAP 4.0 11/14/16 07:33 73 16 95 BiPAP/CPAP 4.0 11/14/16 05:09 66 95 3.0 11/14/16 04:00 91 BiPAP 4.0 11/14/16 03:56 36.6 73 21 151/75 (100) 91 BiPAP 11/14/16 02:43 73 92 3.0 11/14/16 00:01 90 BiPAP 4.0 11/13/16 23:56 36.7 70 19 196/72 (113) 90 BiPAP 11/13/16 20:00 98 Nasal Cannula 4.0 11/13/16 19:25 80 16 97 Nasal Cannula 4.0 11/13/16 19:20 36.4 78 21 147/74 (98) 98 Nasal Cannula 4.0 11/13/16 16:00 96 Nasal Cannula 4.0 11/13/16 15:25 36.5 76 20 139/78 (98) 96 Nasal Cannula 4.0 11/13/16 15:17 82 18 97 Nasal Cannula 4.0 Physical Exam: Constitutional: appearance frail pale Ears, Nose, Mouth and Throat:WNL Cardiovascular: normal S-1 and S-2 and regular rate and rhythm Respiratory: course breath sound bilaterally Musculoskeletal good distal pulses Skin: no stigmata of neurocutaneous disease noted and normal and intact Eyes: unequal pupils, blind in right eye, 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, hip flex 4/5 generalized weakness Laboratory Results Past 24 Hours: 11/14/16 04:44 11/14/16 04:44 Test 11/14/16 04:44 Red Blood Count 3.47 M/uL (4.2-5.4) Mean Corpuscular Volume 94.2 fL (80-100) Mean Corpuscular Hemoglobin 32.6 pg (25-34) Mean Corpuscular Hemoglobin Concent 34.6 g/dl (32-36) RDW Standard Deviation 40.4 fL (36.4-46.3) RDW Coefficient of Variation 11.8 % (11.5-14.5) Mean Platelet Volume 9.3 fL (7.4-10.4) Activated Partial Thromboplast Time 61.1 SECONDS (21.0-31.0) Partial Thromboplastin Ratio 2.4 Anion Gap 5.0 mmol/L (3-11) Est Creatinine Clear Calc Drug Dose 94.1 ml/min Estimated GFR () 118.0 Estimated GFR (Non- 101.8 BUN/Creatinine Ratio 39.1 (10-20) Uric Acid 1.9 mg/dl (2.6-7.2) Calcium Level 8.7 mg/dl (8.5-10.1) Imaging current imaging reviewed Impression 81 year old female with chronic gait issues and swallowing issues, current with PE/DVT Plan 1. EMG as outpatient maybe helpful for evaluation 2. acetylcholine AB, TSH CK, for evaluation of disease process 3. CXR done during this admission -r/o Thymoma 4. PT/OT for discharge needed 5. speech swallow eval with advanced diet 6. further recommendations to follow I have seen and discussed above patient with Dr Arabella Villagomez, neurology PT seen and examined, pt of Dr Caballero who follows her for migraine (1/week) idiopathic peripheral neuropathy and mild parkinsonism. Hospitalized for exacerbation of COPD. PT had swallowing study done likely bc of pneumonia which shows "microaspiration". Pt denies any significant dysphagia, no clear diplopia or true fatigueability. Pt admits to unsteadiness but not vertigo. Pt is blind in R eye, there is horiz nystagmus in extremes of gaze (pt indicates congenital) . 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 no fatiguable eye closure or neck flexor.weakness. No rest tremor, or cogwheel rigidty Moderate diffuse atrophy and weakness, Gait not tested as pt debilitated and has not been oob. Impression: Weakness related to genl debility. Check CK, as pt on statin. Check aACH rec ab, doubt MG>consider NCV< although may have already been done as outpt Congenital nystagmus Dr Caballero will see her tomorr and perhaps will be able to see her walk to see if he appreciates some parkinsonism. ALEXANDRO Villagomez MD
[2016-11-14] MEDS: ERTAPENEM IV 1 GM in SODIUM CHLOR 0.9% AD-VAN 50ML 50 ML IV SCH (16:16)
--- NOTE | 2016-11-14 18:54 | Family Medicine Progress Note ---
Progress Note Date of Service Nov 14, 2016. Subjective Pt evaluation today including: conversation w/ patient, conversation w/ family , physical exam, chart review, lab review, conversation w/ independent consultant, review of inpatient medication list Pain: None reported by patient PO Intake: Minimal due to dysphagia Voiding: lowe catheter in place Stated she was uncomfortable overnight usign BiPAP; denies any pain. disappointed she did not look as good as she did yesterday. Constitutional: + weakness, + fatigue Respiratory: + sputum Female : + hematuria All Other Systems: Reviewed and Negative Medications Current Inpatient Medications Medications (Trade) Dose Ordered Sig/Theo Route Start Time Stop Time Status Last Admin Dose Admin Acetaminophen (Tylenol Tab) 650 mg BID PO 11/09/16 21:00 12/09/16 20:59 11/13/16 20:48 650 MG Atorvastatin Calcium (Lipitor Tab) 20 mg HS PO 11/09/16 21:00 12/09/16 20:59 11/13/16 20:47 20 MG Calcium Carbonate (Tums Chew Tab) 1,000 mg AMHS PO 11/09/16 21:00 12/09/16 20:59 11/13/16 20:47 1,000 MG Levothyroxine Sodium (Synthroid Tab) 175 mcg DAILYBB PO 11/10/16 06:00 12/10/16 06:59 11/14/16 05:49 175 MCG Loperamide HCl (Imodium Cap) 2 mg PRN PRN PO 11/09/16 13:45 12/09/16 13:44 Loratadine (Claritin Tab) 10 mg Q24H PRN PO 11/09/16 13:45 12/09/16 13:44 Magnesium Oxide (Mag-Ox Tab) 400 mg BID PO 11/09/16 21:00 12/09/16 20:59 11/13/16 20:47 400 MG Nadolol (Corgard Tab) 40 mg HS PO 11/09/16 21:00 12/09/16 20:59 11/13/16 20:46 40 MG Pantoprazole Sodium (Protonix Tab) 40 mg DAILY PO 11/10/16 09:00 12/10/16 08:59 11/13/16 09:00 40 MG Sumatriptan Succinate (Imitrex Tab) 50 mg DAILY PRN PO 11/09/16 13:45 12/09/16 13:44 11/13/16 20:50 50 MG Tiotropium [place] (Spiriva Handihaler Inhaler) 1 puff QAM INH 11/10/16 09:00 12/10/16 08:59 11/13/16 09:02 1 PUFF Methylprednisolone Sodium Succinate 40 mg/Syringe 0.64 ml @ 1.5 mls/min Q8H IV 11/09/16 16:30 12/09/16 13:59 11/14/16 08:42 1.5 MLS/MIN Formoterol Fumarate (Perforomist 20MCG/2ML Neb Soln) 20 mcg BIDR INH 11/09/16 20:00 12/09/16 19:59 11/14/16 07:34 20 MCG Albuterol/ Ipratropium (Duoneb) 3 ml QIDR INH 11/09/16 16:00 12/09/16 15:59 11/14/16 15:15 3 ML Albuterol/ Ipratropium (Duoneb) 3 ml Q2H PRN INH 11/09/16 13:45 12/09/16 13:44 Acetaminophen (Tylenol Tab) 650 mg Q4H PRN PO 11/09/16 14:15 12/09/16 14:14 Al Hydrox/Mg Hydrox/Simethicone (Maalox Max Susp) 15 ml Q4H PRN PO 11/09/16 14:15 12/09/16 14:14 Magnesium Hydroxide (Milk Of Magnesia Susp) 30 ml Q12H PRN PO 11/09/16 14:15 12/09/16 14:14 11/11/16 07:43 30 ML Ondansetron HCl (Zofran Inj) 4 mg Q6H PRN IV 11/09/16 14:15 12/09/16 14:14 11/11/16 17:03 4 MG Polyethylene (Miralax Powder Packet) 17 gm DAILY PRN PO 11/09/16 14:15 12/09/16 14:14 11/11/16 09:09 17 GM Rivaroxaban (Xarelto Tab) 15 mg BID PO 11/09/16 21:00 12/09/16 20:59 Future Hold 11/11/16 07:46 15 MG Alprazolam (Xanax Tab) 0.25 mg BID PRN PO 11/10/16 03:30 12/10/16 03:29 Future Hold 11/10/16 12:54 0.25 MG Acetaminophen/ Codeine Phosphate (Tylenol w/ Codeine #3 Tab) 1 tab QID PRN PO 11/10/16 16:00 12/10/16 15:59 Future Hold 11/10/16 21:14 1 TAB Docusate Sodium (coLACE CAP) 100 mg BID PO 11/11/16 21:00 12/11/16 20:59 11/13/16 20:45 100 MG Heparin Sodium/ Dextrose 500 ml @ 15 mls/hr Q24H PRN IV 11/11/16 17:00 12/11/16 16:59 11/14/16 05:42 15 MLS/HR Ertapenem 1 gm/ Sodium Chloride 50 ml @ 120 mls/hr DAILY@1400 IV 11/13/16 15:00 11/23/16 13:59 11/14/16 16:16 120 MLS/HR Guaifenesin (Robitussin Sugar Free Syrup) 100 mg Q6H PRN PO 11/13/16 16:00 12/13/16 15:59 Enteral Nutritional Formula (Boost Breeze Nutritional Drink) 1 box TIDM PO 11/15/16 07:30 12/15/16 07:29 Objective Vital Signs Date Time Temp Pulse Resp B/P (MAP) Pulse Ox O2 Delivery O2 Flow Rate FiO2 11/14/16 16:00 Nasal Cannula 5.0 11/14/16 15:21 36.4 73 24 156/83 (107) 100 Nasal Cannula 4.0 11/14/16 15:15 76 20 98 Nasal Cannula 4.0 11/14/16 12:00 Nasal Cannula 5.0 11/14/16 11:49 36.2 74 24 146/74 (98) 99 BiPAP 3.0 74 11/14/16 08:09 36.2 76 24 147/79 (101) 96 BiPAP 96.0 76 11/14/16 08:00 96 BiPAP 4.0 11/14/16 07:33 73 16 95 BiPAP/CPAP 4.0 11/14/16 05:09 66 95 3.0 11/14/16 04:00 91 BiPAP 4.0 11/14/16 03:56 36.6 73 21 151/75 (100) 91 BiPAP 11/14/16 02:43 73 92 3.0 11/14/16 00:01 90 BiPAP 4.0 11/13/16 23:56 36.7 70 19 196/72 (113) 90 BiPAP 11/13/16 20:00 98 Nasal Cannula 4.0 11/13/16 19:25 80 16 97 Nasal Cannula 4.0 11/13/16 19:20 36.4 78 21 147/74 (98) 98 Nasal Cannula 4.0 Physical Exam General Appearance: + mild distress Eyes: normal inspection, PERRL, EOMI, sclerae normal, + pertinent finding ( nystagmus) ENT: hearing grossly normal, + nasal drainage Neck: + pertinent finding (hyperextended neck posturing) Respiratory/Chest: no accessory muscle use, + respiratory distress, + decreased breath sounds, + rhonchi Cardiovascular: regular rate, rhythm, no edema, no murmur Abdomen: normal bowel sounds, non tender, soft Extremities: + pertinent finding (stiff shoulder posturing) Neurologic/Psychiatric: alert, oriented x 3 Skin: no rash Laboratory Results 11/14/16 04:44 11/14/16 04:44 Test 11/14/16 04:44 11/14/16 14:40 11/14/16 16:52 11/14/16 18:16 Red Blood Count 3.47 M/uL (4.2-5.4) Mean Corpuscular Volume 94.2 fL (80-100) Mean Corpuscular Hemoglobin 32.6 pg (25-34) Mean Corpuscular Hemoglobin Concent 34.6 g/dl (32-36) RDW Standard Deviation 40.4 fL (36.4-46.3) RDW Coefficient of Variation 11.8 % (11.5-14.5) Mean Platelet Volume 9.3 fL (7.4-10.4) Activated Partial Thromboplast Time 61.1 SECONDS (21.0-31.0) Partial Thromboplastin Ratio 2.4 Anion Gap 5.0 mmol/L (3-11) Est Creatinine Clear Calc Drug Dose 94.1 ml/min Estimated GFR () 118.0 Estimated GFR (Non- 101.8 BUN/Creatinine Ratio 39.1 (10-20) Uric Acid 1.9 mg/dl (2.6-7.2) Calcium Level 8.7 mg/dl (8.5-10.1) Assessment and Plan 82 yo female presented with acute exacerbation of COPD, complicated with acute DVT/PE, complicated with gross hematuria on heparin Today's issues include: worsening respiratory status, return of gross hematuria. Discussed with patient and updated code status. Acute asthma/copd exacerbation secondary/to infectious/inflammatory pneumonitis Continues to have diffuse rhonchi bilaterally. Currently on formotorol neb Steroids: 40 mg methylprednisolone q8h IV; keep IV for another day. Hematuria Seen by vascular surgery team today Scheduled to have IVC filter placed tomorrow, will likely DC heparin after procedure Urinary Tract Infection E.coli on culture, resistant to levaquin Day 2 ertapenam IV Acute DVT/PE Still on IV heparin Seen by vascular surgery team today Scheduled to have IVC filter placed tomorrow, Acute Metabolic Encephalopathy Mental status improved on new antibiotic to treat UTI and rise in Na level Hyponatremia On admission Na 135, today Na 129; continue to monitor; h/o hyponatremia in 2014 will recheck urine osmol, urine Na+ tomorrow Malnutrition Prealbumin low Boost supplement provided History of MAC--contact precautions Code status: level 3 DVT prophylaxis--IV heparin drip Dispo: still on telemetry Resident Physician Supervision Note: I was present with PGY1 Dr. Kell Diaz during the history and exam. I discussed the case with the resident and agree with the findings and plan as documented in the note. Any exceptions or clarifications are listed here: none. Pt continues with poor respiratory status and difficulty clearing secretions. She is awake during our entire bedside rounds today. Hematuria had improved, but then returned again this am. Poor appetite. We had lengthy discussion today about her nystagmus which she has had since she was a child along with her neuropathy. Follows with Dr. Caballero for the neuropathy. VSS, no fever gen - thin, awake, alert, audible course breath sounds neck - JVD present left neck mouth - MMM, no thrush; posterior pharyngeal secretions heart - RRR lungs - very course BS b/l, some rhonchi - unchanged from prior exam abd - soft, ND, BS+ ext - right leg is larger than left leg, pulses 2+ b/l, 1+ edema right ankle neuro - atrophy of muscles of hands/feet; no proximal muscle weakness of upper/ lower limbs; hyper-extension of neck noted urine in lowe bag with hematuria labs - Na 129 urine cx with e. coli - MDR A/P: 1. acute hypoxic/hypercarbic respiratory failure - ongoing. 2. suspected aspiration pneumonia - now on ertapenem. 3. COPD with exacerbation - no change today; remains on high-dose IV steroids, nebs, etc. 4. metabolic encephalopathy - improved. 5. hyponatremia - suspected SIADH. Review of EMR shows low or low-normal Na for years. Urine osm, Urine Na, serum osm, serum uric acid - all indices c/w SIADH. repeat urine osm/Na following saline challenge shows continued high urine osm c/ w SIADH. cont fluid restriction to 1500cc/day. etiology??? pulmonary cause? 6. acute RLE DVT with PEs - on heparin drip, but experiencing ongoing, intermittent hematuria. Vascular consulted for consideration of IVC filter. 7. gross hematuria - see below. 8. h/o recurrent UTIs with current MDR e. coli UTI - sens to ertapenem; day #2 of such; plan 7 days. 9. recent cystoscopy in outpatient urology clinic - per Dr. Moreno's note there was large area of erythema on bladder wall, unknown etiology. 10. neuropathy, dysphagia/difficulty clearing secretions, hyper-extended neck, etc - neurological cause of difficulty with airway/breathing?? consulted Dr. Caballero for his opinion. updated extensively at bedside prognosis guarded Documented By: Asim Diallo MD Resident Tracking Resident Involvement: Resident Care Provided Care Provided: Adult [facility]
[2016-11-14] MEDS: ATORVASTATIN 20 MG TAB PO SCH (20:59)
[2016-11-14] MEDS: NADOLOL 40 MG TAB PO SCH (20:59)
[2016-11-15] VITALS (15 sets, daily range): BP systolic 119–163; BP diastolic 67–82; PULSE 69–101; TEMP 36.4–36.7; O2SAT 84–100
[2016-11-15] MEDS: METHYLPREDNISOLONE IV 40 MG in SYRINGE 0 ML IV SCH ×3 (00:24→16:48)
[2016-11-15] MEDS: LEVOTHYROXINE 175 MCG TAB PO SCH (06:00)
[2016-11-15 06:42] LABS: BUN/CREATININE RATIO 35.1 (10-20); CALCIUM 8.6 mg/dl (8.5-10.1); CREATININE 0.43 mg/dl (0.60-1.20); POTASSIUM 3.4 mmol/L (3.5-5.1)
[2016-11-15] MEDS: ALBUT/IPRATROP 3MG/0.5MG NEB 3 ML VIAL INH SCH ×3 (06:58→15:44)
[2016-11-15] MEDS: FORMOTEROL FUMA NEBULIZER SOLN 20 MCG/2 ML VIAL INH SCH (06:58)
--- NOTE | 2016-11-15 07:01 | Progress Note ---
Progress Note Date of Service Nov 15, 2016. Progress Note Patient for filter insertion. I have discussed the risks options and benefits of the procedure with the patient. The patient understands the risks options and benefits and agrees to the procedure. I have examined the patient, reviewed the History & Physical and in the interval since the performance of the History & Physical I have noted the following changes of clinical significance: No changes noted
--- NOTE | 2016-11-15 07:02 | Procedure Note ---
Pre-Mod Sedation Assessment General Date of Moderate Sedation: Nov 15, 2016. Vital Signs: Vital Signs Past 12 Hours Date Time Temp Pulse Resp B/P (MAP) Pulse Ox O2 Delivery O2 Flow Rate FiO2 11/15/16 04:10 36.4 74 20 136/67 (90) 100 Nasal Cannula 4.0 11/15/16 04:00 Nasal Cannula 4.0 11/15/16 00:01 97 BiPAP 4.0 11/14/16 23:44 36.7 73 20 99/62 (74) 97 BiPAP 11/14/16 20:00 99 Nasal Cannula 5.0 11/14/16 19:57 81 20 95 Nasal Cannula 3.0 11/14/16 19:31 36.4 77 20 145/72 (96) 99 Nasal Cannula 3.5 Pre-Sedation Airway Assessment Oral Cavity: Dentures Smoking Status: Former Smoker Mallampati Classification: Class I ASA Classification: Class III Notes The planned sedation has been discussed with the patient and consent obtained. I have identified the patient, determined the appropriateness of sedation and have assessed the patient immediately prior to the procedure. All medicine(s) and interventions are by my order.
[2016-11-15] MEDS ORDERED: MIDAZOLAM HCL 1 MG/ML 2ML VIAL ONE (08:12)
[2016-11-15] MEDS ORDERED: FENTANYL CITRATE INJ 50 MCG/1 ML 2 ML VIAL ONE (08:12)
[2016-11-15] MEDS ORDERED: LIDOCAINE HCL 1% 20 ML VIAL INFIL ONE (08:25)
[2016-11-15] MEDS ORDERED: FENTANYL CITRATE INJ 50 MCG/1 ML 2 ML VIAL IV ONE (08:36)
[2016-11-15] MEDS ORDERED: IODIXANOL (VISIPAQUE) 270 MG/ML 50ML IV ONE (08:48)
--- NOTE | 2016-11-15 08:56 | [facility] Post Operative Brief Note ---
Immediate Operative Summary Operative Date Nov 15, 2016. Pre-Operative Diagnosis DVT and PE Hematuria Post-Operative Diagnosis Same Procedure(s) Performed Insertion of Vena Cava Filter, Right Femoral Approach Repositioning of Vena Cava Filter, Right Jugular Approach Surgeon [employer] Operator Surgeon(s) None Estimated Blood Loss 5 Findings filter upright in infrarenal cava Specimens None Anesthesia Local Complication(s) None Disposition
[2016-11-15] MEDS: MAGNESIUM OXIDE 400 MG TAB PO SCH (09:00)
[2016-11-15] MEDS: TIOTROPIUM BROMIDE 5 PUFF/90 MCG INH INH SCH (09:00)
[2016-11-15] MEDS: DOCUSATE SODIUM 100 MG CAP PO SCH (09:00)
[2016-11-15] MEDS: ACETAMINOPHEN 325 MG TAB PO SCH (09:00)
[2016-11-15] MEDS: PANTOprazole SOD 40 MG TAB PO SCH (09:00)
[2016-11-15] MEDS: CALCIUM CARBONATE 500 MG CHEWABLE PO SCH (09:00)
--- NOTE | 2016-11-15 09:01 | [facility] Operative Report ---
Operative Report Operative Date Nov 15, 2016. Pre-Operative Diagnosis DVT and PE Hematuria Post-Operative Diagnosis Same Procedure(s) Performed Insertion of IVC filter, Repositioning of IVC filter Surgeon [employer] Surgeon(s) None Estimated Blood Loss 5 Findings filter upright in infra renal vena cava, no clot seen Specimens None Anesthesia Local Complication(s) None Disposition Indications Indications: This is a 81-year-old white female who has a deep venous thrombosis of the lower extremity and pulmonary emboli. She was found to have hematuria which has not cleared up and cannot be anticoagulated. Due to the contraindication for anticoagulation a filter insertion was recommended. Her and understood the risks options and benefits both agreed to go ahead with this procedure. Description of Procedure Procedure: Patient was taken to the angiogram suite placed in the supine position. Her right groin was prepped and draped in a sterile manner. Local anesthetic was then administered. Ultrasound was used to locate the right femoral vein. It was a good caliber compressed easily and was patent. A direct puncture was made of the right common femoral vein under ultrasound guidance. A wire was passed centrally into the inferior vena cava. The filter sheath was inserted and placed in distal inferior vena cava. A venacavogram was performed. This showed the cava to be slightly tortuous of good caliber. There is no clot noted. The renal veins were seen. Filter was then inserted through the sheath. It did hang up in the middle of the sheath and could not be passed due to kinking. The filter was removed. A new filter was then inserted through the sheath and then advanced into the distal inferior vena cava again. The filter was then deployed. Due to tortuosity of the iliac veins and cable of the filter was tilted the approximate 45. The sheath was removed over a wire and a 7 [place] sheath was inserted in its place. It was decided that point to retrieve the filter and reposition it into an upright position. The right-sided neck was then prepped and draped in sterile manner. Ultrasound was then used to locate the right internal jugular vein. The vein was of good caliber,Compressed easily and was patent. A puncture was then made of the right internal jugular vein under direct ultrasound guidance. A wire was then passed centrally from the superior to the inferior vena cava. The puncture site was dilated and the retrieval sheath was inserted and passed down into the inferior vena cava just above the filter. The snare was then inserted and passed through the sheath. The snare was opened and used to snare the hook of the filter and the sheath was then advanced over the filter. The sheath was then turned and the filter was deployed in the distal inferior vena cava and upright position. Now that the filter was in a good upright position, the snare was released. The retrieval sheath was then removed from the neck. The 7 [place] sheath from the groin was also removed. Pressure was applied to both puncture sites. Adequate hemostasis was then noted. Sterile dressings were applied to the wounds and the patient left the angiogram suite in good condition tolerated procedure well. I attest to the content of the Intraoperative Record and any orders documented therein. Any exceptions are noted below.
[2016-11-15] MEDS: BOOST BREEZE NUTRITION DRINK 1 BOX PO SCH ×3 (09:19→16:20)
[2016-11-15 11:33] LABS: PARTIAL THROMBOPLASTIN RATIO 2.6
[2016-11-15] MEDS ORDERED: NURSING VERBAL MED ORDER ONE (12:15)
[2016-11-15] MEDS ORDERED: ACETAMINOPHEN IV 650 MG in EMPTY BAG 0 ML IV PRN (12:30)
[2016-11-15] MEDS: ERTAPENEM IV 1 GM in SODIUM CHLOR 0.9% AD-VAN 50ML 50 ML IV SCH (14:00)
--- NOTE | 2016-11-15 15:49 | Neurology Progress Notes ---
Neurology Progress Note Date of Service Nov 15, 2016. Mike Velasquez is an 81-year-old female with history of chronic persistent asthma, previous history of immunoglobulin deficiency, presented to the hospital after a 4 day history of worsening shortness of breath. She was diagnosed with viral bronchitis given azithromycin and prednisone but has not improved. she was found to have DVT and PE. She also has blood in her urine. She is scheduled tomorrow to have a IVC filter placed. She also has advanced emphysema and lung nodules. She is seen in neurology by Dr Caballero sees her for gait instability She had a swallowing study for possible aspiration and was cleared for a regular diet. She states she has had chronic back pain for 2 years since she fell and fractured vertebra and sacrum with no surgery required. Her is in the room and states the primary doctor was concerned because of the swallowing issues and her peripheral neuropathy Eva just returned from having her IVC filter placed. she can be aroused but very tired. she has not been out of bed walking today due to the surgery Objective Date Time Temp Pulse Resp B/P (MAP) Pulse Ox O2 Delivery O2 Flow Rate FiO2 11/15/16 12:21 36.6 73 24 140/82 (101) 98 Nasal Cannula 4.0 11/15/16 12:00 Nasal Cannula 4.0 11/15/16 11:08 74 20 92 Nasal Cannula 4.0 11/15/16 11:05 73 18 122/74 (90) 95 Nasal Cannula 4.0 11/15/16 10:35 36.7 72 18 119/69 (86) 94 Nasal Cannula 4.0 11/15/16 10:05 73 18 129/78 (95) 94 Nasal Cannula 4.0 11/15/16 09:50 71 18 120/76 (91) 94 Nasal Cannula 4.0 11/15/16 09:35 70 18 123/77 (92) 95 Nasal Cannula 4.0 11/15/16 09:20 36.6 70 18 125/74 (91) 94 Nasal Cannula 4.0 11/15/16 09:20 Nasal Cannula 4.0 11/15/16 09:14 36.6 73 22 163/79 (107) 100 Nasal Cannula 4.0 11/15/16 07:47 77 20 142/69 98 Nasal Cannula 4.0 11/15/16 06:58 77 20 84 Room Air 11/15/16 04:10 36.4 74 20 136/67 (90) 100 Nasal Cannula 4.0 11/15/16 04:00 Nasal Cannula 4.0 11/15/16 00:01 97 BiPAP 4.0 11/14/16 23:44 36.7 73 20 99/62 (74) 97 BiPAP 11/14/16 20:00 99 Nasal Cannula 5.0 11/14/16 19:57 81 20 95 Nasal Cannula 3.0 11/14/16 19:31 36.4 77 20 145/72 (96) 99 Nasal Cannula 3.5 11/14/16 16:00 Nasal Cannula 5.0 Last 24 Hours Test 11/14/16 18:59 11/15/16 05:59 11/15/16 11:04 Total Creatine Kinase 108 U/L Sodium Level 129 mmol/L Potassium Level 3.4 mmol/L Chloride Level 90 mmol/L Carbon Dioxide Level 33 mmol/L Anion Gap 6.0 mmol/L Blood Urea Nitrogen 15 mg/dl Creatinine 0.43 mg/dl Est Creatinine Clear Calc Drug Dose 75.8 ml/min Estimated GFR () 111.3 Estimated GFR (Non- 96.1 BUN/Creatinine Ratio 35.1 Random Glucose 151 mg/dl Calcium Level 8.6 mg/dl Activated Partial Thromboplast Time 68.8 SECONDS Partial Thromboplastin Ratio 2.6 Imaging: no new imagines Exam: gen: sleeping arousal but drowsy lungs course wet breath sounds CV RRR moves all ext spontaneously Current Inpatient Medications Medications (Trade) Dose Ordered Sig/Theo Route Start Time Stop Time Status Last Admin Dose Admin Acetaminophen (Tylenol Tab) 650 mg BID PO 11/09/16 21:00 12/09/16 20:59 11/14/16 21:01 650 MG Atorvastatin Calcium (Lipitor Tab) 20 mg HS PO 11/09/16 21:00 12/09/16 20:59 11/14/16 20:59 20 MG Calcium Carbonate (Tums Chew Tab) 1,000 mg AMHS PO 11/09/16 21:00 12/09/16 20:59 11/14/16 21:00 1,000 MG Levothyroxine Sodium (Synthroid Tab) 175 mcg DAILYBB PO 11/10/16 06:00 12/10/16 06:59 11/14/16 05:49 175 MCG Loperamide HCl (Imodium Cap) 2 mg PRN PRN PO 11/09/16 13:45 12/09/16 13:44 Loratadine (Claritin Tab) 10 mg Q24H PRN PO 11/09/16 13:45 12/09/16 13:44 Magnesium Oxide (Mag-Ox Tab) 400 mg BID PO 11/09/16 21:00 12/09/16 20:59 11/14/16 20:59 400 MG Nadolol (Corgard Tab) 40 mg HS PO 11/09/16 21:00 12/09/16 20:59 11/14/16 20:59 40 MG Pantoprazole Sodium (Protonix Tab) 40 mg DAILY PO 11/10/16 09:00 12/10/16 08:59 11/13/16 09:00 40 MG Sumatriptan Succinate (Imitrex Tab) 50 mg DAILY PRN PO 11/09/16 13:45 12/09/16 13:44 11/13/16 20:50 50 MG Tiotropium [place] (Spiriva Handihaler Inhaler) 1 puff QAM INH 11/10/16 09:00 12/10/16 08:59 11/13/16 09:02 1 PUFF Methylprednisolone Sodium Succinate 40 mg/Syringe 0.64 ml @ 1.5 mls/min Q8H IV 11/09/16 16:30 12/09/16 13:59 11/15/16 09:21 1.5 MLS/MIN Formoterol Fumarate (Perforomist 20MCG/2ML Neb Soln) 20 mcg BIDR INH 11/09/16 20:00 12/09/16 19:59 11/15/16 06:58 20 MCG Albuterol/ Ipratropium (Duoneb) 3 ml QIDR INH 11/09/16 16:00 12/09/16 15:59 11/15/16 11:07 3 ML Albuterol/ Ipratropium (Duoneb) 3 ml Q2H PRN INH 11/09/16 13:45 12/09/16 13:44 Acetaminophen (Tylenol Tab) 650 mg Q4H PRN PO 11/09/16 14:15 12/09/16 14:14 Al Hydrox/Mg Hydrox/Simethicone (Maalox Max Susp) 15 ml Q4H PRN PO 11/09/16 14:15 12/09/16 14:14 Magnesium Hydroxide (Milk Of Magnesia Susp) 30 ml Q12H PRN PO 11/09/16 14:15 12/09/16 14:14 11/11/16 07:43 30 ML Ondansetron HCl (Zofran Inj) 4 mg Q6H PRN IV 11/09/16 14:15 12/09/16 14:14 11/11/16 17:03 4 MG Polyethylene (Miralax Powder Packet) 17 gm DAILY PRN PO 11/09/16 14:15 12/09/16 14:14 11/11/16 09:09 17 GM Rivaroxaban (Xarelto Tab) 15 mg BID PO 11/09/16 21:00 12/09/16 20:59 Future Hold 11/11/16 07:46 15 MG Alprazolam (Xanax Tab) 0.25 mg BID PRN PO 11/10/16 03:30 12/10/16 03:29 Future Hold 11/10/16 12:54 0.25 MG Acetaminophen/ Codeine Phosphate (Tylenol w/ Codeine #3 Tab) 1 tab QID PRN PO 11/10/16 16:00 12/10/16 15:59 Future Hold 11/10/16 21:14 1 TAB Docusate Sodium (coLACE CAP) 100 mg BID PO 11/11/16 21:00 12/11/16 20:59 11/14/16 20:58 100 MG Heparin Sodium/ Dextrose 500 ml @ 15 mls/hr Q24H PRN IV 11/11/16 17:00 12/11/16 16:59 11/14/16 05:42 15 MLS/HR Ertapenem 1 gm/ Sodium Chloride 50 ml @ 120 mls/hr DAILY@1400 IV 11/13/16 15:00 11/23/16 13:59 11/15/16 14:00 120 MLS/HR Guaifenesin (Robitussin Sugar Free Syrup) 100 mg Q6H PRN PO 11/13/16 16:00 12/13/16 15:59 Enteral Nutritional Formula (Boost Breeze Nutritional Drink) 1 box TIDM PO 11/15/16 07:30 12/15/16 07:29 Acetaminophen 650 mg/Empty Bag 65 ml @ 400 mls/hr Q8H PRN IV 11/15/16 12:30 12/15/16 12:29 11/15/16 13:25 400 MLS/HR Impression 81 year old female with chronic gait issues and swallowing issues, current with PE/DVT Plan 1. EMG as outpatient maybe helpful for evaluation 2. acetylcholine AB pending , TSH CK, -WNL 3. CXR done during this admission -r/o Thymoma 4. PT/OT for discharge needed 5. speech swallow eval with advanced diet 6. further recommendations to follow I have seen and discussed above patient with Dr Patrick Caballero, neurology I know this woman- she has a polyneuropathy, congenital nystagmus, visual issues and a bradykinetic rigid syndrome with some leukoencephalopathy but not clear cut parkinsonism and she is resistant to the concept that she has parkinsons disease ( was briefly on sinemet about a year ago and stopped it before we could assess any benefit or lack thereof ) She is now ill and debilitated with pharyngeal pooling of secretions and some low grade dysphagia but doubt a significant neuromuscular component or an upper motor system pathway defect as causation. Agree with the above plans save for emg as she has had her neuropathy assessed by emg ncs in the past and the diagnosis confirmed we may consider repetitive stimulation studies outpatient if the antiacetylcholine receptor antibody is positive but my suspicion for Myasthenia is low and exam today actually show good strength relative to her muscle wasting and only the chronic low grade bradykinesia and rigidity she has been developing over the past several years We willl follow tomorrow but for now unlesss things change have nothing further to offer Patrick Caballero MD
--- NOTE | 2016-11-15 15:59 | DIAGNOSTIC IMAGING REPORT ---
CHEST ONE VIEW PORTABLE CLINICAL HISTORY: 81 years-old Female presenting with Persistant bilateral rhonchi despite Rx. TECHNIQUE: Portable upright AP view of the chest was obtained. COMPARISON: 11/12/2016. FINDINGS: Atherosclerosis of aortic arch. Mild enlargement of the cardiac silhouette. Enlargement of the main pulmonary artery. Reticulation and lucency at the apices evidence of emphysema, better appreciated on recent CT from October 30, 2016. No focal pulmonary opacity. No large effusion or pneumothorax. Evidence of lower thoracic kyphoplasty. IVC filter partially visualized. IMPRESSION: 1. Emphysema. 2. No focal infiltrate. Electronically signed by: Kole Gage 11/15/2016 3:58 PM Dictated Date/Time: 11/15/2016 3:54 PM
[2016-11-15] MEDS: HEPARIN 25,000 UNIT/500ML D5W 500 ML IV PRN (16:28)
[2016-11-15] MEDS: SUMATRIPTAN SUCCINATE 50 MG TAB PO PRN (16:47)
--- NOTE | 2016-11-15 17:00 | Family Medicine Progress Note ---
Progress Note Date of Service Nov 15, 2016. Subjective Pt evaluation today including: conversation w/ family, physical exam, chart review, lab review, review of studies, conversation w/ wellness consultant Pain: Unable to be assessed as patient still recovering from anesthesia PO Intake: Attemped PO yogurt Voiding: lowe catheter in place This 81 yo female admitted for Acute exacerbation of COPD had an IVC filter placed today for recurrent hematuria while on IV heparin. She is still quite groggy from the anesthesia and has not full awoken. Constitutional: + weight loss, + weakness Respiratory: + wheezing, + shortness of breath, + dyspnea on exertion, + dyspnea at rest Female : + hematuria Heme: + abnormal bleeding/bruising All Other Systems: Reviewed and Negative Medications Reported Home Medications Medications Dose Route/Sig Max Daily Dose Days Date Category Dose Instructions Imitrex (Sumatriptan Succinate) 50 Mg Tab 50 Mg PO PRN 11/09/16 Reported 1 tab at onset of migraine may repeat after 2 hours if ineffective Artificial Tears (Dlbqdkfs-Oswqplifpwbk-Bzktmull) 1 Ceasar Ceasar 1 Drop OPB Q2H 07/11/16 Reported Protonix (Pantoprazole Sodium) 40 Mg Tab 40 Mg PO DAILY 07/11/16 Reported Mometasone Furoate (Mometasone Furoate (Nasal)) 50 Mcg/Act Spr 2 Sprays MIRTHA QAM 07/11/16 Reported Ventolin Hfa (Albuterol) 200 Puffs/59804 Mcg Aers 2 Puffs INH Q6H PRN 07/11/16 Reported Spiriva Handihaler (Tiotropium Corona) 5 Puff/90 Mcg Aerp 1 Cap INH QAM 07/11/16 Reported 1CAPSULE INHALE ORALLY IN THE MORNING, TAKE TWO SEPERATE INHALATIONS VIA HANDIHALER DEVICE Albuterol Sulfate (Albuterol Sulf) 2.5 Mg/3 Ml Nebu 1 Vial NEB Q4 PRN 07/11/16 Reported Imodium (Loperamide HCl) 2 Mg Cap 2 Mg PO UD PRN 12/21/15 Reported Fioricet (Pkvjbcvwjq-Yjwpflyhpagde-Ysflz) 1 Cap Cap 1 Tab PO Q12H PRN 12/21/15 Reported Magnesium-Oxide (Magnesium Oxide) 400 Mg Tab 400 Mg PO BID 30 11/29/15 Rx Tylenol (Acetaminophen) 325 Mg Tab 650 Mg PO BID 11/23/15 Reported Levothyroxine Sodium 175 Mcg Tab 175 Mcg PO QAM 11/15/15 Reported Cyanocobalamin 1,000 Mcg/Ml Inj 1,000 Mcg IM WK 06/21/14 Reported WED[place]ES[place] Centrum Silver Adult 50+ (Multiple Vitamins W/ Minerals) 1 Tab Tab 1 Tab PO QAM 06/21/14 Reported adult chewable Lipitor (Atorvastatin Calcium) 20 Mg Tab 20 Mg PO HS 05/11/14 Reported Advair Diskus 500-50 Mcg/Dose (Fluticasone Prop/Salmeterol) 14 Puff/1 Inhaler Aerp 1 Puff INH AMHS 05/11/14 Reported Claritin (Loratadine) 10 Mg Tab 10 Mg PO Q24H PRN 12/25/13 Reported Nadolol 40 Mg Tab 40 Mg PO HS 11/23/13 Reported Tums (Calcium Carbonate) 500 Mg Chew 1,000 Mg PO AMHS 09/13/13 Reported Objective Vital Signs Last Vital Signs Documentation Date Time Temp Pulse Resp B/P (MAP) Pulse Ox O2 Delivery O2 Flow Rate FiO2 11/15/16 16:20 36.4 69 24 123/68 (86) 97 Nasal Cannula 4.0 Physical Exam General Appearance: + mild distress Eyes: normal inspection, sclerae normal, + pertinent finding (Has sight out of only one eye) ENT: normal ENT inspection, hearing grossly normal, pharynx normal Neck: no JVD, trachea midline, + pertinent finding (hyperextended neck) Respiratory/Chest: + respiratory distress, + decreased breath sounds, + rhonchi Cardiovascular: regular rate, rhythm, no edema, no murmur Abdomen: normal bowel sounds, non tender, soft Extremities: + pertinent finding (cachectic) Neurologic/Psychiatric: no motor/sensory deficits, alert, normal mood/affect Skin: no rash Laboratory Results Last Resulted 11/14/16 04:44 Last Resulted 11/15/16 05:59 Assessment and Plan Eva is an 81 yo lady who had an IVC filter placed today. She has a hx of PE/ DVT but had excessive hematuria on lovenox and IV heparin. She continues to struggle with her respiratory status, for which she was initially admitted. Current issues: Acute asthma/copd exacerbation secondary/to infectious/inflammatory pneumonitis Continues to have diffuse rhonchi bilaterally. Currently on formotorol neb Steroids: 40 mg methylprednisolone q8h IV; keep IV for another day. Hematuria Seen by vascular surgery team today IVC filter placed today, DC heparin Urinary Tract Infection E.coli on culture, resistant to levaquin Finish ertapenam course Acute DVT/PE IVC filter placed; cannot sustain continued hematuria on IV heparin Acute Metabolic Encephalopathy Mental status improved on new antibiotic to treat UTI and rise in Na level from fluid constriction Hyponatremia On admission Na 135, today Na 130; continue to monitor; h/o hyponatremia in 2014 recheck urine osmol, urine Na+ improved Malnutrition Prealbumin low Boost supplement provided History of MAC--contact precautions Code status: level 3 DVT prophylaxis--IVC filter placement Dispo: still on telemetry
--- NOTE | 2016-11-15 18:31 | Pulmonology Progress Note ---
Pulmonary Progress Note Date of Service Nov 15, 2016. Attending Dr. Marquez Subjective Patient is evaluated today with Po Garcia,physician business banking sales assistant student. Patient has given verbal consent for this. Patient is being evaluated today for follow-up on her breathing difficulties. She did undergo placement of an IVC filter earlier today. Dr. Lott's op note was reviewed. Patient was very lethargic due to the sedation when I entered and evaluated her. She voiced no complaints. Her and son were present in the room during the exam. They report her breathing is about the same. I did discuss case with Dr. Marquez who went back and talked with the patient about the possibility of doing a bronchoscopy yesterday. The concern is that the patient may end up on a ventilator if bronchoscopy is performed. She did not want that and therefore declined to have the procedure done. The and son are in agreement with this. Nursing voices no concerns at this time. Objective The patient is sleepy. She was cooperative With the exam. She does not appear in any acute respiratory distress. She does have a harsh moist sounding cough. VS as per below . Neck: Supple. No mass, adenopathy, or bruit. There is no abnormality to palpation. Chest: Diffuse rhonchi bilaterally. No appreciated wheezes or rales. Fair air movement. CV: RRR. Abdomen: Soft and nontender. Bowel sounds were normal. No guarding, rigidity , or organomegaly Extremities showed no edema. Assessment & Plan Impressions: 1 acute pulmonary embolism 2 deep vein thrombosis involving the superficial femoral and popliteal on the right 3 fluid filled esophagus-worrisome for aspiration-uncertain etiology 4 diffuse rhonchi suggesting retained secretions 5 COPD exacerbation with emphysema reported on CAT scan 6 history of M AC infection Comments and recommendations: The patient is evaluated today. patient had an IVC filter placed today and is lethargic. I feel that we need to continue the BiPAP intermittently during the day and then have her wear it again at night. at this point she is refusing have bronchoscopy done due to possibility requiring intubation. For now will continue her aggressive pulmonary toilet. Continue to encourage her to use vibration vest. Consider possibility of adding Mucomyst are dornase to her regimen to see if we can thin down the secretions. We will continue to follow throughout hospitalization. Data Medications: Current Inpatient Medications Medications (Trade) Dose Ordered Sig/Theo Route Start Time Stop Time Status Last Admin Dose Admin Acetaminophen (Tylenol Tab) 650 mg BID PO 11/09/16 21:00 12/09/16 20:59 11/14/16 21:01 650 MG Atorvastatin Calcium (Lipitor Tab) 20 mg HS PO 11/09/16 21:00 12/09/16 20:59 11/14/16 20:59 20 MG Calcium Carbonate (Tums Chew Tab) 1,000 mg AMHS PO 11/09/16 21:00 12/09/16 20:59 11/14/16 21:00 1,000 MG Levothyroxine Sodium (Synthroid Tab) 175 mcg DAILYBB PO 11/10/16 06:00 12/10/16 06:59 11/14/16 05:49 175 MCG Loperamide HCl (Imodium Cap) 2 mg PRN PRN PO 11/09/16 13:45 12/09/16 13:44 Loratadine (Claritin Tab) 10 mg Q24H PRN PO 11/09/16 13:45 12/09/16 13:44 Magnesium Oxide (Mag-Ox Tab) 400 mg BID PO 11/09/16 21:00 12/09/16 20:59 11/14/16 20:59 400 MG Nadolol (Corgard Tab) 40 mg HS PO 11/09/16 21:00 12/09/16 20:59 11/14/16 20:59 40 MG Pantoprazole Sodium (Protonix Tab) 40 mg DAILY PO 11/10/16 09:00 12/10/16 08:59 11/13/16 09:00 40 MG Sumatriptan Succinate (Imitrex Tab) 50 mg DAILY PRN PO 11/09/16 13:45 12/09/16 13:44 11/15/16 16:47 50 MG Tiotropium Sheldon (Spiriva Handihaler Inhaler) 1 puff QAM INH 11/10/16 09:00 12/10/16 08:59 11/13/16 09:02 1 PUFF Methylprednisolone Sodium Succinate 40 mg/Syringe 0.64 ml @ 1.5 mls/min Q8H IV 11/09/16 16:30 12/09/16 13:59 11/15/16 16:48 1.5 MLS/MIN Formoterol Fumarate (Perforomist 20MCG/2ML Neb Soln) 20 mcg BIDR INH 11/09/16 20:00 12/09/16 19:59 11/15/16 06:58 20 MCG Albuterol/ Ipratropium (Duoneb) 3 ml QIDR INH 11/09/16 16:00 12/09/16 15:59 11/15/16 15:44 3 ML Albuterol/ Ipratropium (Duoneb) 3 ml Q2H PRN INH 11/09/16 13:45 12/09/16 13:44 Acetaminophen (Tylenol Tab) 650 mg Q4H PRN PO 11/09/16 14:15 12/09/16 14:14 Al Hydrox/Mg Hydrox/Simethicone (Maalox Max Susp) 15 ml Q4H PRN PO 11/09/16 14:15 12/09/16 14:14 Magnesium Hydroxide (Milk Of Magnesia Susp) 30 ml Q12H PRN PO 11/09/16 14:15 12/09/16 14:14 11/11/16 07:43 30 ML Ondansetron HCl (Zofran Inj) 4 mg Q6H PRN IV 11/09/16 14:15 12/09/16 14:14 11/11/16 17:03 4 MG Polyethylene (Miralax Powder Packet) 17 gm DAILY PRN PO 11/09/16 14:15 12/09/16 14:14 11/11/16 09:09 17 GM Rivaroxaban (Xarelto Tab) 15 mg BID PO 11/09/16 21:00 12/09/16 20:59 Future Hold 11/11/16 07:46 15 MG Alprazolam (Xanax Tab) 0.25 mg BID PRN PO 11/10/16 03:30 12/10/16 03:29 Future Hold 11/10/16 12:54 0.25 MG Acetaminophen/ Codeine Phosphate (Tylenol w/ Codeine #3 Tab) 1 tab QID PRN PO 11/10/16 16:00 12/10/16 15:59 Future Hold 11/10/16 21:14 1 TAB Docusate Sodium (coLACE CAP) 100 mg BID PO 11/11/16 21:00 12/11/16 20:59 11/14/16 20:58 100 MG Heparin Sodium/ Dextrose 500 ml @ 15 mls/hr Q24H PRN IV 11/11/16 17:00 12/11/16 16:59 11/15/16 16:28 15 MLS/HR Ertapenem 1 gm/ Sodium Chloride 50 ml @ 120 mls/hr DAILY@1400 IV 11/13/16 15:00 11/23/16 13:59 11/15/16 14:00 120 MLS/HR Guaifenesin (Robitussin Sugar Free Syrup) 100 mg Q6H PRN PO 11/13/16 16:00 12/13/16 15:59 Enteral Nutritional Formula (Boost Breeze Nutritional Drink) 1 box TIDM PO 11/15/16 07:30 12/15/16 07:29 11/15/16 16:20 1 BOX Acetaminophen 650 mg/Empty Bag 65 ml @ 400 mls/hr Q8H PRN IV 11/15/16 12:30 12/15/16 12:29 11/15/16 13:25 400 MLS/HR I & O: 24-Hour Column 11/16/16 08:00 Output Total 225 ml Balance -225 ml Vital Signs: Date Time Temp Pulse Resp B/P (MAP) Pulse Ox O2 Delivery O2 Flow Rate FiO2 11/15/16 16:20 36.4 69 24 123/68 (86) 97 Nasal Cannula 4.0 11/15/16 15:44 101 20 96 Nasal Cannula 4.0 11/15/16 12:21 36.6 73 24 140/82 (101) 98 Nasal Cannula 4.0 11/15/16 12:00 Nasal Cannula 4.0 11/15/16 11:08 74 20 92 Nasal Cannula 4.0 11/15/16 11:05 73 18 122/74 (90) 95 Nasal Cannula 4.0 11/15/16 10:35 36.7 72 18 119/69 (86) 94 Nasal Cannula 4.0 11/15/16 10:05 73 18 129/78 (95) 94 Nasal Cannula 4.0 11/15/16 09:50 71 18 120/76 (91) 94 Nasal Cannula 4.0 11/15/16 09:35 70 18 123/77 (92) 95 Nasal Cannula 4.0 11/15/16 09:20 36.6 70 18 125/74 (91) 94 Nasal Cannula 4.0 11/15/16 09:20 Nasal Cannula 4.0 11/15/16 09:14 36.6 73 22 163/79 (107) 100 Nasal Cannula 4.0 11/15/16 07:47 77 20 142/69 98 Nasal Cannula 4.0 11/15/16 06:58 77 20 84 Room Air 11/15/16 04:10 36.4 74 20 136/67 (90) 100 Nasal Cannula 4.0 11/15/16 04:00 Nasal Cannula 4.0 11/15/16 00:01 97 BiPAP 4.0 11/14/16 23:44 36.7 73 20 99/62 (74) 97 BiPAP 11/14/16 20:00 99 Nasal Cannula 5.0 11/14/16 19:57 81 20 95 Nasal Cannula 3.0 11/14/16 19:31 36.4 77 20 145/72 (96) 99 Nasal Cannula 3.5 Laboratory Results: Last 24 Hours Test 11/14/16 18:59 11/15/16 05:59 11/15/16 11:04 Total Creatine Kinase 108 U/L Sodium Level 129 mmol/L Potassium Level 3.4 mmol/L Chloride Level 90 mmol/L Carbon Dioxide Level 33 mmol/L Anion Gap 6.0 mmol/L Blood Urea Nitrogen 15 mg/dl Creatinine 0.43 mg/dl Est Creatinine Clear Calc Drug Dose 75.8 ml/min Estimated GFR () 111.3 Estimated GFR (Non- 96.1 BUN/Creatinine Ratio 35.1 Random Glucose 151 mg/dl Calcium Level 8.6 mg/dl Activated Partial Thromboplast Time 68.8 SECONDS Partial Thromboplastin Ratio 2.6
--- NOTE | 2016-11-15 19:20 | Progress Note ---
Progress Note Date of Service Nov 15, 2016. Progress Note Code Blue Note: Responded to code blue and upon arrival ACLS was in process. Patient was receiving 100% O2 via bag-mask by respiratory. Initial monitor showed bradycardia which ultimately led to PEA. Chest compressions were initiated, and 1mg of epinephrine and 1mg of atropine were administered. Dr. Veloz, ICU attending, was present during the code. The code team was aware that she was a [id number]. Pt's son/ were present and called into the room after spontaneous circulation was restored following the above measures. Discussion was held with her family and a decision was made to not proceed with any further aggressive measures or ICU transfer. She was made a level 5 DNR at that time, and comfort care measures were initiated. Support given to family, and the on-call transfer clerk was summoned for additional support. Asim Diallo MD
--- NOTE | 2016-11-15 19:21 | Critical Care Progress Note ---
Critical Care Progress Note Date of Service Nov 15, 2016. Critical Care Progress Note Eva verdugo is an 81-year-old female who as of 1899 was a level III and had underwent insertion of an IVC filter due to significant clot burden. A CODE JACQUE was called overhead around [address] Veloz and myself presented to the patient in bed 232. We found her hypoxic and bradycardic. She was requiring bag ventilation and ultimately an oral airway. CPR compressions were started and patient received 1 dose of epinephrine. A return of spontaneous breathing and pulse was noted and CPR was stopped approximately 3 minutes after having begun. Dr. Veloz spoke with the patient's son and and the decision to make her DO NOT RESUSCITATE was established. The family agreed that they wanted their loved one to be comfortable. Orders were entered by Dr. Veloz and patient was officially made DO NOT RESUSCITATE/level V. I have personally evaluated and examined this patient. I agree with assessment and plan of Isabela Chopra PA-C. Patient peacefully with and son present at the bedside.
--- NOTE | 2016-11-15 19:46 | Death Pronouncement Note ---
Pronouncement Note Date & Time of Nov 15, 2016. 19:28 (Kell Diaz M.D.) Pronouncement At time of pronouncement the patients pupils were fixed and dilated, there was no spontaneous respiratory effort, no palpable pulse, no audible heart tones, and no response to pain or voice. Certificate completed Dr. Diallo present at pronouncement (Kell Diaz M.D.) Resident Physician Supervision Note: I was present with PGY1 Dr. Kell Diaz during the pronouncement and I agree with her documentation as outlined. Asim Diallo MD (Asim Diallo MD) Resident Tracking Resident Involvement: Resident Care Provided Care Provided: Adult Hospital Medicine (Kell Diaz M.D.)
--- NOTE | 2016-11-15 19:50 | Death Summary ---
Summary of Admission Date Nov 09, 2016 at 14:08 (Kell Diaz M.D.) Date & Time of Nov 15, 2016. 19:28 (Kell Diaz M.D.) Cause of Acute hypoxic respiratory failure secondary to COPD exacerbation (Kell Diaz M.D.) Secondary Diagnoses DVT, PE, multidrug resistant UTI, suspected aspiration with pneumonia, IVC filter placement (Kell Diaz M.D.) Hospital Course 81 yo who presented with acute hypoxic respiratory failure Complicated by DVT and PE on admission Complicated by hematuria on lovenox and IV heparin On 11/15/16 at approximately 19:00, patient was alert and talking, and was being assisted across the room when she became unresponsive with bradycardia and acute respiratory failure, which led to pulseless electrical activity Patient had spoken with team while lucid earlier in her stay and stated she would not wish to be intubated. Team performed one cycle of CPR and administered atropine and epinephrine Decision was made to maintain her comfort after these efforts did not result in return of spontaneous circulation. Time of reported 19:28 (Kell Diaz M.D.) Resident Physician Supervision Note: I was present with PGY1 Dr. Kell Diaz during the code blue and was present at the time of the patient's pronouncement. I agree with all documentation in this note except that the patient did in fact have mosque of spontaneous circulation during the code following one round of CPR (no intubation). However, in keeping with her wishes, her /son initiated comfort care measures following the code blue and she peacefully a short time later. Asim Diallo MD (Asim Diallo MD) Copy To Sb Patricio M.D.
[2016-11-15] MEDS ORDERED: SODIUM CHLORIDE 0.9% 10ML FLUSH IV ONE (23:12)
[2016-11-15] MEDS ORDERED: ATROPINE SULFATE 0.1 MG/ML 10 ML SYR IV ONE (23:12)
[2016-11-18 00:31] LABS: RECEPTOR BINDING AB <0.30 nmol/L (<=0.30)
== END 2016-11-15 23:13 | disposition expired | DRG 166 ==
LOC: EDBD 10:03 → C.EDA 10:04 → C.2T 14:08 → ENRESERV 14:15
PROVIDERS: ADMIT Internal Medicine; ATTEND Internal Medicine
PROC: 06H03DZ Insertion of Intraluminal Device into Inferior Vena Cava, Percutaneous Approach (ICD-10-PCS; principal; 2016-11-15 08:00)
DX: J44.1 Chronic obstructive pulmonary disease with (acute) exacerbation (principal); J96.01 Acute respiratory failure with hypoxia; J96.02 Acute respiratory failure with hypercapnia; G93.41 Metabolic encephalopathy; I26.99 Other pulmonary embolism without acute cor pulmonale; Z68.1 Body mass index [BMI] 19.9 or less, adult; N39.0 Urinary tract infection, site not specified; R64 Cachexia; I82.411 Acute embolism and thrombosis of right femoral vein; I82.431 Acute embolism and thrombosis of right popliteal vein; E87.1 Hypo-osmolality and hyponatremia; E46 Unspecified protein-calorie malnutrition; J45.30 Mild persistent asthma, uncomplicated; K21.9 Gastro-esophageal reflux disease without esophagitis; M19.90 Unspecified osteoarthritis, unspecified site; I25.10 Atherosclerotic heart disease of native coronary artery without angina pectoris; F41.9 Anxiety disorder, unspecified; H91.90 Unspecified hearing loss, unspecified ear; E78.5 Hyperlipidemia, unspecified; B96.20 Unspecified Escherichia coli [E. coli] as the cause of diseases classified elsewhere; R31.0 Gross hematuria; E89.0 Postprocedural hypothyroidism; R26.9 Unspecified abnormalities of gait and mobility; G89.29 Other chronic pain; I35.1 Nonrheumatic aortic (valve) insufficiency; I46.9 Cardiac arrest, cause unspecified; Z96.653 Presence of artificial knee joint, bilateral; Z98.41 Cataract extraction status, right eye; Z98.42 Cataract extraction status, left eye; Z79.52 Long term (current) use of systemic steroids; Z88.1 Allergy status to other antibiotic agents; Z88.5 Allergy status to narcotic agent; Z86.14 Personal history of Methicillin resistant Staphylococcus aureus infection; Z88.0 Allergy status to penicillin; Z88.2 Allergy status to sulfonamides; Z88.8 Allergy status to other drugs, medicaments and biological substances; Z90.49 Acquired absence of other specified parts of digestive tract; Z86.010 Personal history of colon polyps; Z79.899 Other long term (current) drug therapy; Z78.0 Asymptomatic menopausal state; Z85.828 Personal history of other malignant neoplasm of skin; Z66 Do not resuscitate; Z51.5 Encounter for palliative care